=== PATIENT | female | born 1930 | race Caucasian/White ===

== ENCOUNTER 2016-07-10 07:57 | Inpatient (IN) | payer MEDICARE, BC ==
--- NOTE | 2016-07-04 16:24 | HP ---
HISTORY AND PHYSICAL: DATE OF ADMISSION: 07/10/16 PROVIDER: Dr. Bartlett. CHIEF COMPLAINT: Preop for right hip revision. HISTORY OF PRESENT ILLNESS: Ms. Lee is an 86-year-old female who has had right hip pain that has been occurring since last visit. The patient had a periprosthetic femur fracture that was treated with an ORIF and cemented femoral component. She has been having pain in her thigh and lateral hip since that time. It was initially thought that the stem may be starting to loosen. The patient has been participating in physical therapy since April and feels that she has improved with lateral hip pain, but has is continuing to have pain in her thigh and is not able to take more than 2 steps without her cane. The patient is now seeking surgical intervention and she would like to proceed with a revision surgery. PAST MEDICAL HISTORY: The patient's known past medical history: Chronic diagnosis of osteoporosis, chronic lymphoid leukemia, benign essential hypertension. The patient also had a cystocele which has been treated with a pessary. Hospitalizations: Colitis, August 2014. The patient was hospitalized for C. diff and a right-sided DVT. PAST SURGICAL HISTORY: 1. Hip replacement in 2014, right hip x2. 2. Cataract surgery, undefined date. 3. Tonsils at age 11. MEDICATIONS: 1. Tylenol with Codeine No. 3 300/30 mg p.r.n. 2. Tramadol 50 mg p.r.n. 3. Voltaren 1% 2 g b.i.d. p.r.n. 4. Hydrochlorothiazide 25 mg 1 p.o. daily. 5. Fish oil 1000 mg 2 by mouth every day. 6. Centravites 1 p.o. daily. 7. Calcium 600 plus D3 one daily. 8. Biotin 5000 mcg. ALLERGIES: PENICILLIN, LATEX, and then OXYCODONE - the patient was in a state of acute delirium during last hospitalization while given OXYCODONE. FAMILY HISTORY: Father due to stroke. Mother due to cirrhosis. Two older brothers, both , due to lung cancer. Sister is still alive, healthy. SOCIAL HISTORY: The patient lives with spouse, 61 years. 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 The patient is a former smoker, quit 40 years ago, one-half pack per day x20 years. The patient consumes alcohol rarely, states 1 glass of wine every 3 weeks. The patient denies any illicit drug use. REVIEW OF SYSTEMS: General: Denies fevers, chills, or night sweats. No known anesthesia problems. HEENT: Denies headache, lightheadedness, or syncopal episode. Cardiothoracic: Denies any chest pain, heart palpitations, or edema. Pulmonary: Denies any shortness of breath with exertion, chronic cough, or COPD. GI: Admits to constipation. Denies any nausea, vomiting, or diarrhea. : Denies any nocturia, urinary frequency, or urgency. MSK: Admits to pain in the quadriceps tendon area. Admits to tightness along the IT band, admits to mild amount of pain in the right side. Neuro: Denies any paresthesias, numbness, seizures, stroke, or epilepsy. Integument: Denies any abrasions, lesions, or rashes. Endocrine: Denies any diabetes or thyroid issues. Hematology: Denies any easy bruising, anemia, or excessive bleeding. Admits to history of DVT. PHYSICAL EXAMINATION GENERAL: The patient is awake, alert, and oriented, 86-year-old female who is in no acute distress. She has appropriate mood and affect. HEENT: Normocephalic, atraumatic. Hearing and vision are grossly intact. PULMONARY: Lungs are clear to auscultation bilaterally with no wheezes, rales, or rhonchi. CARDIO: Regular rate and rhythm. S1 and S2 with no appreciable S3 or S4. No murmurs, rubs, or gallops appreciated. ABDOMEN: Soft and nontender with normal bowel sounds in all 4 quadrants. MUSCULOSKELETAL: Gait: The patient's gait is antalgic favoring the right lower extremity. She ambulates with a cane. Right lower extremity: The patient's skin is intact. Some slight tenderness to palpation along the IT band laterally. Slight tenderness to palpation on the quadriceps tendon. Slight pain to palpation on the right hip joint. The patient has active hip flexion to 90 degrees with some lateral thigh pain. Active hip abduction. The patient is neurovascularly intact distally with 2+ dorsalis pedis pulses and posterior tibial pulses. IMPRESSION: Preop for right hip revision of the femoral stem. PLAN: The patient will undergo a revision of a right total hip arthroplasty. The patient will return 10 to 14 days postop for suture removal and followup and x- rays. A prescription for Percocet 5/325 has been sent to the pharmacy of record to be used for postoperative pain management. Scripts for Coumadin 2 mg for postop DVT prophylaxis and Colace to be used as needed for constipation were also e- scripted to the pharmacy of record. The risks and benefits of surgery were discussed with the patient and signed consent was obtained. We are unclear on whether we will be placing a distal fixation long cemented stem. Bone quality will have to be evaluated operatively as well as see how much cement is able to be removed from the femoral canal. The patient will be seen on 07/10/16 for a right total hip arthroplasty revision. GRZEGORZ WOODS [id number]/CPS #: [id number] MTDD
[~2016-07-10 07:57] MED LIST: Buffered Lidocaine 1% SYR 3ML* 3 ML/SYR SYRINGE INTRADERM ONE; Dexamethasone IV* 4 MG/ML 1 ML (4 MG) IV SLOW PU ONE; Famotidine IV* 10 MG/ML 2 ML (20 mg) IV ONE
[2016-07-10] MEDS ORDERED: Buffered Lidocaine 1% SYR 3ML* 3 ML/SYR SYRINGE ONE (08:17)
[2016-07-10] MEDS ORDERED: Famotidine IV* 10 MG/ML 2 ML (20 mg) ONE (08:17)
[2016-07-10] MEDS ORDERED: Dexamethasone IV* 4 MG/ML 1 ML (4 MG) ONE (08:17)
[2016-07-10] MEDS ORDERED: Clindamycin 900 MG IVPREMIX(* 900 MG/50 ML SDV IV ONE (08:17)
[2016-07-10] MEDS ORDERED: Ondansetron INJ* 2 MG/ML VIAL ONE (09:08)
[2016-07-10] MEDS ORDERED: Propofol* 10 MG/ML 20 ML BTL IV PUSH ONE ×2 (09:08→14:24)
[2016-07-10] MEDS ORDERED: Bupivacaine 0.5% SDV PF* 30 ML VIAL ONE (09:10)
[2016-07-10] MEDS ORDERED: Midazolam* 1 MG/ML 5 ML VIAL (5 MG) ONE (10:38)
[2016-07-10] MEDS ORDERED: KETAMINE HCL* 50 MG/ML 10 ML VIAL ONE (10:39)
[2016-07-10] MEDS ORDERED: Morphine PF AMP (0.5MG/ML)* 5 MG/10 ML AMP ONE (10:39)
[2016-07-10] MEDS ORDERED: Midazolam* 1 MG/ML 2 ML VIAL (2 MG) ONE ×2 (12:15→15:21)
[2016-07-10] MEDS ORDERED: Nalbuphine* 20 MG/ML 1 ML VIAL IV PRN ×2 (12:23)
[2016-07-10] MEDS ORDERED: fentaNYL* 50 MCG/ML 2 ML VIAL (100 MCG VIAL) IV PRN (12:23)
[2016-07-10] MEDS ORDERED: Naloxone* 0.4 MG/ML 1 ML VIAL IV PRN (12:23)
[2016-07-10] MEDS ORDERED: Ondansetron INJ* 2 MG/ML VIAL IV PRN (12:29)
[2016-07-10] MEDS ORDERED: oxyCODONE/Acetamin 5/325 MG* TAB PO PRN (12:29)
[2016-07-10] MEDS ORDERED: Atropine 1MG/ML INJ* 1 ML VIAL ONE (12:58)
[2016-07-10] MEDS ORDERED: Ropivacaine* 300 MG in NS 0.9% 250 ML* 240 ML EPIDURAL SCH (13:00)
[2016-07-10] MEDS ORDERED: Nalbuphine* 20 MG/ML 1 ML VIAL ONE (14:30)
[2016-07-10] MEDS ORDERED: Lidocaine 2% EPI 1:200000 MPF* 20 ML VIAL ONE (14:44)
[2016-07-10] MEDS ORDERED: Sodium Bicarbonate 8.4% SYR* 10 ML SYRINGE ONE (14:44)
[2016-07-10] MEDS ORDERED: Acetaminophen TAB* 325 MG PO PRN (16:24)
[2016-07-10] MEDS ORDERED: Bisacodyl SUPP* 10 MG SUPP PR PRN (16:24)
[2016-07-10] MEDS ORDERED: Polyethylene Glycol 3350* 17 GM PACKET PO PRN (16:24)
[2016-07-10] MEDS ORDERED: Magnesium Hydroxide LIQ* 30 ML UDC PO PRN (16:24)
--- NOTE | 2016-07-10 18:02 | RAD ---
INDICATION: Total right hip replacement revision surgery. COMPARISON: Comparison is made with a prior x-ray study of the right hip from April 23, 2016. TECHNIQUE: An AP view of the pelvis and frontal and lateral views of the right hip were obtained. FINDINGS: The patient is status post total right hip arthroplasty with a long stem prostheses within the femur. The bones and prostheses are in normal alignment. In addition there is a metallic plate present along the lateral aspect of the femur. There are multiple wire sutures present. There are multiple surgical trang present laterally. IMPRESSION: STATUS POST TOTAL RIGHT HIP ARTHROPLASTY REVISION.
--- NOTE | 2016-07-10 18:05 | RAD ---
INDICATION: Total right hip revision arthroplasty. TECHNIQUE: 2 views of the right femur were obtained. FINDINGS: The patient is status post post total right hip revision arthroplasty. The bones and prostheses are in normal alignment. There is a longstem prostheses within the femur. In addition there is an oblique fracture of the distal femur. There is a metallic plate present along the lateral aspect of the femur transfixed with multiple screws and wire suture spanning the fracture fragments. IMPRESSION: STATUS POST TOTAL RIGHT HIP REVISION ARTHROPLASTY AND FRACTURE REDUCTION.
[2016-07-10] MEDS: Docusate CAP* 100 MG PO SCH (19:51)
[2016-07-10] MEDS ORDERED: Warfarin TAB(*) 6 MG PO ONE (20:00)
[2016-07-10] MEDS: Clindamycin 600 MG IVPREMIX(* 600 MG/50 ML SDV IV SCH (20:16)
--- NOTE | 2016-07-10 21:49 | CONS ---
MEDICAL CONSULTATION: DATE OF CONSULT: 07/10/16 PRIMARY CARE PROVIDER: Dr. Cindy Matamoros. CONSULTING PROVIDER: GRZEGORZ Bell. SUPERVISING PHYSICIAN: Bertha Souza DO (DICTATED BY GRZEGORZ BELL) REQUESTING PROVIDER: Alka Bartlett MD. CHIEF COMPLAINT: Status post revision of right total hip. HISTORY OF PRESENT ILLNESS: This is an 86-year-old female with a history of CLL followed by Dr. Howard, felt to currently be in remission as well as hypertension with a history of a prior DVT, history of C. Diff colitis and a cystocele who underwent revision of her right total hip by Dr. Bartlett earlier today. Hospitalist group was asked to consult for medical comanagement during her hospital stay. The patient states that she is doing fairly well postoperatively. It appears that she had spinal anesthesia. She is complaining of some dizziness, but otherwise is feeling well. She feels no pain. Denies chest pain, shortness of breath, nausea, vomiting or abdominal pain. In regards to the patient's history of DVT, she states that this occurred during a hospital admission for C. Diff colitis, which occurred a couple of weeks after a surgery, she is unsure of which surgery this was, perhaps her left hip. She has no known family history of clotting disorder. PAST MEDICAL HISTORY: 1. History of CLL, currently in remission, followed by Dr. Howard. 2. Hypertension. 3. History of DVT following surgery and during subsequent hospital admission. 4. History of C. Diff colitis. 5. Cystocele. PAST SURGICAL HISTORY: 1. Right total hip replacement. 2. Cataract surgery. 3. Tonsillectomy. HOME MEDICATIONS: 1. 1 tablet p.o. twice daily. 2. Biotin 5000 mcg p.o. daily. 3. Estradiol vaginal cream 1 application vaginally twice weekly. 4. Hydrochlorothiazide 25 mg p.o. daily. 5. Multivitamin 1 tablet p.o. daily. 6. Naproxen 220 mg p.o. daily. 7. [place]-3 fatty acids 325 mg capsule p.o. daily. 8. Florastor or saccharomyces 250 mg p.o. daily. SOCIAL HISTORY: The patient lives with her to whom she has been for 60 years. She quit smoking about 40 years ago. Denies any regular alcohol consumption. PHYSICAL EXAM: Recent vital signs: Temperature 96.8 degrees Fahrenheit, pulse 78 beats per minute, respiratory rate 16 per minute, oxygen saturation 99% on 4 L via nasal cannula and a blood pressure of 119/70 mmHg. General: This is a very pleasant elderly female who appears younger than her stated age, lying comfortably in a hospital bed in the recovery area. HEENT: Head is normocephalic, atraumatic. Mucous membranes are pink and mildly dry. Cardiovascular: Heart has a regular rate and rhythm without murmurs, rubs, or gallops. Respiratory: Lungs are clear to auscultation without wheezes, crackles or rhonchi. Abdomen: Soft and nontender to palpation. Extremities: Right hip has a postsurgical bandage in place. No lower extremity edema appreciated. Skin: Limited exam shows no concerning rashes or lesions. Psych : The patient is alert and appropriately oriented. DIAGNOSTIC STUDIES/LAB DATA: Reviewed preop labs from 07/05/16, which showed a white blood cell count of 19,600, which seems to be near her baseline. Hemoglobin was normal at 12.3 g/dL and a normal platelet count of 218,000. Comprehensive metabolic panel was unremarkable. Creatinine was notably normal at 0.86 with an estimated GFR of 62.7. Imaging: None. ASSESSMENT AND PLAN: This is an 86-year-old female with history of chronic lymphocytic leukemia followed by Dr. Howard as well as hypertension, history of prior deep venous thrombosis, sounds like surrounding prior hospital admission and surgery as well as history of Clostridium difficile colitis and a cystocele , who is now status post revision of her right total hip by Dr. Bartlett earlier today. Hospitalist group is consulted for medical comanagement. 1. Status post revision of right total hip by Dr. Bartlett. The patient is postop day 0. Surgical management including DVT prophylaxis, pain management and discharge planning per Surgery. 2. Hypertension - hold hydrochlorothiazide until blood pressure requires resuming. 3. History of chronic lymphocytic leukemia - noted leukocytosis preoperatively. We will not plan to follow her white blood cell count during her hospital admission. 4. History of deep venous thrombosis surrounding prior surgery and hospital admission. The patient has been ordered Lovenox and Coumadin per Orthopedic Surgery group for prophylaxis. 5. Cystocele with pessary in place. 6. Code status - the patient is full code. 7. DVT prophylaxis as noted above. 8. Healthcare proxy is her . DISPOSITION: Hospitalist group will continue to follow along during this patient's postoperative course. No acute medical concerns at this time. Discharge planning per Orthopedic Surgery. GRZEGORZ BELL CC: Dr. Cindy Matamoros* [id number]/CPS #: [id number] ALFREDITO
[2016-07-11] MEDS: Clindamycin 600 MG IVPREMIX(* 600 MG/50 ML SDV IV SCH ×2 (03:51→12:15)
[2016-07-11] MEDS: HYDROcodone/ACETAMIN 5-325 MG* 1 TAB PO PRN ×5 (04:12→21:06)
[2016-07-11] MEDS ORDERED: Lactated Ringers 250 ml Bag* 250 ML IV ONE (06:00)
[2016-07-11] MEDS ORDERED: diPHENhydraMINE IV* 50 MG/ML 1 ml VIAL (BENADRYL) IV PRN (06:00)
[2016-07-11] MEDS ORDERED: Ondansetron TAB* 4 MG PO PRN (06:00)
[2016-07-11] MEDS ORDERED: Ondansetron INJ* 2 MG/ML VIAL IV PRN (06:00)
[2016-07-11] MEDS ORDERED: Morphine INJ* 2 MG/ML 1 ML CARPUJECT IV PRN (06:00)
[2016-07-11 06:50] LABS: Hematocrit 21 % (35-47); Hemoglobin 6.8 g/dl (12.0-16.0)
[2016-07-11 06:59] LABS: BUN/Creatinine Ratio 28.6 (8-20); Calcium 8.2 mg/dL (8.6-10.3); EGFR African American 115.5 (>60); EGFR Non-African American 89.8 (>60); Potassium 4.4 mmol/L (3.5-5.0)
[2016-07-11 07:08] LABS: Comments Flag Yes
--- NOTE | 2016-07-11 07:45 | PN ---
Progress Note - Progress Note SOAP: Subjective: Pt. reports pain is controlled. Objective: RLE - dressing c/d/i, thigh soft, distally +df/pf, full sens lt, 2+ dp pulse. Vital Signs: Temp Pulse Resp BP Pulse Ox 99.5 F 60 16 105/46 100 07/11/16 03:40 07/11/16 03:40 07/11/16 06:12 07/11/16 03:40 07/11/16 03:40 Laboratory Results - last 24 hr 07/11/16 07/11/16 07/11/16 06:12 06:12 06:12 Hgb 6.8 L Hct 21 L INR (Anticoag Therapy) 1.24 H Sodium 133 Potassium 4.4 Chloride 101 Carbon Dioxide 30 Anion Gap 2 BUN 18 Creatinine 0.63 Est GFR ( Amer) 115.5 Est GFR (Non-Af Amer) 89.8 BUN/Creatinine Ratio 28.6 H Glucose 122 H Calcium 8.2 L Blood Type Crossmatch 07/11/16 06:12 Hgb Hct INR (Anticoag Therapy) Sodium Potassium Chloride Carbon Dioxide Anion Gap BUN Creatinine Est GFR ( Amer) Est GFR (Non-Af Amer) BUN/Creatinine Ratio Glucose Calcium Blood Type A Negative Crossmatch See Detail Assessment: 86 yo F pod 1 s/p revision RTHA with intraop femur fracture s/p orif Plan: ttwb rle pt/ot knee immobilizer to RLE at all times 2 u prbc today for acute postop blood loss anemia 6 mg coumadin tonight
[2016-07-11] MEDS: Docusate CAP* 100 MG PO SCH ×2 (08:19→21:06)
[2016-07-11] MEDS: Vitamin THERAPEUTIC TAB PO SCH (08:19)
[2016-07-11] MEDS ORDERED: Hydrochlorothiazide TAB* 25 MG PO SCH (09:00)
--- NOTE | 2016-07-11 11:26 | RAD ---
INDICATION: Right total hip revision arthroplasty. COMPARISON: Comparison is made with a prior x-ray study of the right hip from April 23, 2016. TECHNIQUE: 38.1 seconds of intermitted fluoroscopic were provided and multiple views of the right hip and femur were obtained in the operating room. FINDINGS: The films demonstrate the distal portion of a long stem prostheses. There is a fracture of the distal femoral diaphysis and metaphysis. There is a metallic plate present along the lateral aspect of the femur with multiple wire sutures present and 2 surgical screws distally transversing the fracture fragments. IMPRESSION: INTRAOPERATIVE CONTROL FILMS. CPT II Codes: 6045F
[2016-07-11] MEDS ORDERED: Enoxaparin(*) 30 MG/0.3 ML SYR SUBCUT SCH (12:00)
--- NOTE | 2016-07-11 13:42 | OP ---
DATE OF OPERATION: 07/10/16 - ROOM #348 DATE OF : 32 SURGEON: Alka Bartlett MD ASSISTANT QUALITY MANAGER: GRZEGORZ Mendez ANESTHESIOLOGIST: Dr. Patel. ANESTHESIA: Spinal epidural. PRE-OP DIAGNOSIS: Painful failed right total hip arthroplasty due to periprosthetic loosening of the femoral stem with periprosthetic fracture. POST-OP DIAGNOSIS: Painful failed right total hip arthroplasty due to periprosthetic loosening of the femoral stem with periprosthetic fracture. OPERATIVE PROCEDURE: Revision right total hip arthroplasty with revision of the femoral component, open reduction and internal fixation with plate and screws for intraoperative distal femoral fracture. INDICATIONS: Ms. Lee is an 86-year-old female, who has chronic history of right hip pain and multiple surgeries on her right hip as well as multiple periprosthetic fractures. The patient initially underwent right total hip arthroplasty with Dr. Felton over 1 year ago. She developed a periprosthetic fracture which was treated with revision of the femoral stem to a cemented stem with cerclage cables. The patient also reports she had a distal femoral fracture from a fall over the last 2 years. The patient presented to my clinic with obvious radiographic evidence of periprosthetic loosening of the femoral stem and microfracture or stress reaction around the stem tip. I offered her revision surgery. She understood that due to her age and bone quality, the risk of intraoperative fracture was high. Informed consent was obtained from the patient. She understood the risks of the surgery included but were not limited to bleeding, infection, damage to nearby structures, continued pain, need for further surgery, intraoperative fracture, nerve palsy, hardware failure or loosening, dislocation , leg length discrepancy, stroke, heart attack, blood clot, and . She wished to proceed. EBL: 400 cc. SPECIMEN: Multiple cultures sent to Pathology for culture and sensitivities of the right hip joint fluid. There is no obvious infection or purulence. HARDWARE USED: This is a Remigio uncemented revision hip hardware. Methodist modular was used. A 195, 16-mm distal pentecostalism stem with a proximal body of 19 +0, a 32, -4 Biolox delta ceramic V40 femoral head was used. A Remigio lateral femoral plate was used as well as 7 Dall-Miles cables and 2 cortical screws distally. INTRAOPERATIVE FINDINGS: Intraoperatively, the patient's femoral stem was noted to be grossly loose. The acetabulum and polyethylene were without any loosening or abnormality. Femoral stem was removed easily. A large amount of cement and the distal cement bone plug were difficult to remove. Intraoperative radiographs showed an area of bone weakness just distal to the prior femoral stem, which was likely from her prior periprosthetic fracture. During placement of the long uncemented stem for the pentecostalism modular implant , a distal femoral fracture was discovered. This was treated with a lateral sideplate, multiple Dall-Miles cables, and two distal screws. Throughout the procedure, the patient's bone quality was noted to be quite poor. DESCRIPTION OF PROCEDURE: Ms. Lee was identified in the preanesthesia unit. Her right lower extremity was marked as the correct operative side. Informed consent was signed and placed in the chart. The patient was taken to the operating room and placed under spinal epidural anesthesia. A Fung catheter was placed. She was placed in the left lateral decubitus position on the pegboard with all bony prominences well-padded. Right lower extremity was prepped and draped in the usual sterile fashion. Preop time-out was made to correctly identify the patient's side and site. Right lower extremity was prepped and draped in the usual sterile fashion. The patient's prior hip incision was used. This was incised with a 10 blade and electrocautery was used to dissect down to the lateral fascial layer. Lateral fascial layer was then incised. There was a large amount of scar tissue and this was cleared anteriorly and posteriorly. A single posterior capsular flap was then made with electrocautery to enter the posterior hip joint. There was some clear yellow joint fluid, which was collected for culture and sensitivities. No obvious purulence. The hip was easily dislocated. Femoral stem was clearly visibly loose. A bur was used to remove bony overgrowth along the shoulder near the greater trochanter. [place] and thin osteotome were used to work around the stem. A back-slap was used to remove the femoral stem without difficulty. Extreme caution and care was taken to remove cement from the femoral canal. A mill was used to remove the distal bone plug. Once the canal was cleaned of cement and fibrous debris, attention was turned to place in a long stem uncemented revision femoral stem. The canal was sequentially reamed by hand up to a size 16. AP and lateral C-arm views confirmed satisfactory position of the stem. The prior proximal femoral periprosthetic fracture was visible on plain films. The stem did bypass this area by two stem diameters. Methodist modular 195 x 16 mm was chosen as the distal stem. This was impacted into the femoral canal without difficulty. Next proximally, the reamer guide was placed. Size 19 reamer was placed over the guide proximally. A 19 trial body +0 height was chosen as well as a 32 -4 femoral head trial. The hip was reduced and taken through range of motion. Soft tissue tension was satisfactory. The hip was carefully dislocated at this point. There was no palpable or audible fracture; however, it was immediately recognized that there was likely a distal femoral fracture. AP and lateral C-arm views confirmed a distal femoral fracture distal to the stem tip. At this point, the lateral incision was continued distally with skin knife and electrocautery. The lateral fascial layer was incised in line with the skin incision. Careful electrocautery and dissection with a Bautista elevator on to the lateral femur was performed. The fracture lines were identified. Lobster claws were used to obtain a provisional reduction of the fracture. A lateral femoral plate was chosen and this was secured both proximally and distally with 3 Dall- Miles cables. At this point, the fracture reduction was stable. The reduction forceps were removed. AP and lateral C-arm views confirmed satisfactory reduction. Two screws were placed distal to the fracture site through the plate. An additional cable was placed proximally. The construct was stable with motion. Attention was turned next to the proximal femur. A 19 +0 pentecostalism modular body was chosen. This was impacted on to the stem and tightened with a bolt. Proper torque was applied. The proper anteversion was chosen. 32, -4 Biolox delta ceramic V40 head was used as the final implant and was impacted on to the femoral neck without difficulty. The hip was reduced and taken through a range of motion. The hip was stable in all positions. The entire incision was copiously irrigated with sterile saline and dried. Previously tagged capsule was reapproximated to the posterolateral femur through two trochanteric drill holes. The vastus lateralis was reapproximated using running #1 Vicryl. The lateral fascial layer was reapproximated using interrupted #1 Vicryls. Skin was closed in a layered fashion using 0 and 2-0 Vicryls. Skin was closed with trang. The patient's anesthesia was reversed without difficulty. She was taken to the PACU in stable condition. Intended weightbearing will be toe-touch weightbearing. Intended DVT prophylaxis will be Coumadin with a Lovenox bridge. [id number]/[facility] #: [id number] MTDD
[2016-07-11] MEDS ORDERED: Warfarin TAB(*) 6 MG PO SCH (17:00)
--- NOTE | 2016-07-11 17:31 | PN ---
Subjective Date of Service: 07/11/16 Interval History: Patient reports that she is mildly dizzy but offers no other acute complaints. She denies CP, abdominal pain, dyspnea, n/v. Urine output was noted to be poor overnight, patient did receive 250ml bolus and maintained on fluids at 100ml/h. Objective Active Medications: Acetaminophen (Tylenol Tab*) 650 mg PO Q4H PRN PRN Reason: PAIN OR TEMPERATURE Acetaminophen/Hydrocodone Bitart ([place] 5-325 Tab*) 1 tab PO Q3H PRN PRN Reason: PAIN - MODERATE Acetaminophen/Hydrocodone Bitart ([place] 5-325 Tab*) 2 tab PO Q3H PRN PRN Reason: PAIN - MODERATE Last Admin: 07/11/16 13:07 Dose: 2 tab Bisacodyl (Dulcolax Supp*) 10 mg LA DAILY PRN PRN Reason: constipation Diphenhydramine HCl (Benadryl Iv*) 12.5 mg IV Q6H PRN PRN Reason: PRURITIS Docusate Sodium (Colace Cap*) 100 mg PO BID [facility] Last Admin: 07/11/16 08:19 Dose: 100 mg Enoxaparin Sodium (Lovenox(*)) 30 mg SUBCUT Q24H [facility] Last Admin: 07/11/16 12:25 Dose: 30 mg Lactated Ringer's (Lactated Ringers 1000 Ml Bag*) 1,000 mls @ 150 mls/hr IV PER RATE [facility] Lactated Ringer's (Lactated Ringers 500 Ml Bag*) 500 mls @ 500 mls/hr IV ONCE ONE Stop: 07/11/16 17:27 Last Admin: 07/11/16 16:33 Dose: 500 mls/hr Lactulose (Lactulose*) 30 ml PO Q6H PRN PRN Reason: constipation Magnesium Hydroxide (Milk Of Magnesia Liq*) 30 ml PO Q6H PRN PRN Reason: constipation Morphine Sulfate (Morphine Inj (Syringe)*) 2 mg IV Q2H PRN PRN Reason: PAIN Last Admin: 07/11/16 16:18 Dose: 2 mg Multivitamins (Theragran Tab*) 1 tab PO DAILY [facility] Last Admin: 07/11/16 08:19 Dose: 1 tab Ondansetron HCl (Zofran Inj*) 4 mg IV Q6H PRN PRN Reason: nausea Ondansetron HCl (Zofran Tab*) 4 mg PO Q6H PRN PRN Reason: NAUSEA Pharmacy Profile Note (Coumadin Daily Reminder*) 1 note FOLLOW UP 1700 KEN Last Admin: 07/11/16 16:24 Dose: 1 note Polyethylene Glycol/Electrolytes (Miralax*) 17 gm PO DAILY PRN PRN Reason: Constipation Vital Signs: Temp Pulse Resp BP Pulse Ox 98.0 F 70 16 116/49 97 07/11/16 15:45 07/11/16 15:45 07/11/16 16:18 07/11/16 15:45 07/11/16 16:00 Oxygen Devices in Use Now: None Appearance: Well appearing, in NAD, eating lunch Neck: NL Appearance and Movements; NL JVP Respiratory: Symmetrical Chest Expansion and Respiratory Effort Cardiovascular: NL Sounds; No Murmurs; No JVD, RRR Abdominal: NL Sounds; No Tenderness; No Distention Extremities: No Edema, - - post tib pulses intact Skin: No Rash or Ulcers Neurological: Alert and Oriented x 3 Result Diagrams: 07/11/16 06:12 07/11/16 06:12 Microbiology and Other Data: Microbiology 07/10/16 11:57 Gram Stain - Final Hip Right Wound Culture - Preliminary No Growth Day 1 07/10/16 11:57 Anaerobic Culture - Preliminary Wound - Hip Right No Growth Day 1 Assess/Plan/Problems-Billing Assessment: This is an 86 yo female with a h/o HTN, CLL, prior DVT and cystocele who is s/p revision R total hip revision which is unfortunately complicated by an intraoperative fracture. Hospitalist group has been asked to consult for medical co-management. - Patient Problems (1) Status post revision of total hip Comment: POD #1 Management per ortho including pain control, DVT prophylaxis and discharge planning (2) Postoperative anemia Comment: Hgb 6.8 g/dl this am Transfused 2U PRBCs Only mildly symptomatic (3) Low urine output Comment: Urine output continues to be poor even following blood transfusion Nurses record ~150ml in the last 8 hours Will give an additional 500 ml bolus and continue maintainence fluids Maintain Ufng in place for close monitoring of output overnight (4) Hypertension Comment: Holding antihypertensives in the setting of hypotension and acute blood loss anemia (5) History of DVT (deep vein thrombosis) Comment: Following prior surg (6) Personal history of CLL (chronic lymphocytic leukemia) Comment: In remission Followed by Dr Howard (7) History of Clostridium difficile colitis Status and Disposition: Discharge planning per ortho
[2016-07-11 18:51] LABS: Hematocrit 26 % (35-47); Hemoglobin 8.6 g/dl (12.0-16.0)
[2016-07-12] MEDS: HYDROcodone/ACETAMIN 5-325 MG* 1 TAB PO PRN ×4 (03:42→22:36)
[2016-07-12 07:32] LABS: Hematocrit 25 % (35-47); Hemoglobin 8.3 g/dl (12.0-16.0)
--- NOTE | 2016-07-12 07:53 | PN ---
Progress Note - Progress Note SOAP: Subjective: []Patient seen at bedside. Pain well managed. Denies shortness of breath, or dizziness today. Objective: [] Vital Signs Temp 98.2 F 07/12/16 07:25 Pulse 70 07/12/16 07:25 Resp 16 07/12/16 07:25 BP 111/49 07/12/16 07:25 Pulse Ox 91 07/12/16 07:25 Intake & Output 07/11/16 07/12/16 07/12/16 18:59 06:59 18:59 Intake Total 1825 3580 Output Total 150 1700 Balance 1675 1880 Intake: IV Fluids 780 2480 ABX - CLINDAMYCIN 55 LR 529 1980 NS 196 lr bolus 500 Oral 480 1100 Packed Cells 565 Output: Fung 150 1700 Vital Signs Temp 98.2 F 07/12/16 07:25 Pulse 70 07/12/16 07:25 Resp 16 07/12/16 07:25 BP 111/49 07/12/16 07:25 Pulse Ox 91 07/12/16 07:25 Intake & Output 07/11/16 07/12/16 07/12/16 18:59 06:59 18:59 Intake Total 1825 3580 Output Total 150 1700 Balance 1675 1880 Intake: IV Fluids 780 2480 ABX - CLINDAMYCIN 55 LR 529 1980 NS 196 lr bolus 500 Oral 480 1100 Packed Cells 565 Output: Fung 150 1700 Laboratory Results - last 24 hr 07/11/16 07/11/16 07/12/16 06:12 18:15 06:32 Hgb 8.6 L 8.3 L Hct 26 L 25 L INR (Anticoag Therapy) Blood Type A Negative Antibody Screen Negative Crossmatch See Detail 07/12/16 06:32 Hgb Hct INR (Anticoag Therapy) 3.59 H Blood Type Antibody Screen Crossmatch Right hip/thigh dressing remains C/D/I Calf non tender Ronald's negative Active DF/PF Neuro intact Assessment: []s/p Revison RTH with intra operative distal femur fracture, s/p ORIF POD#2 Post operative anemia Plan: []Patient with continue with PT/OT TTWB Knee immobilizer on at all times Hold Coumadin today
[2016-07-12] MEDS: Vitamin THERAPEUTIC TAB PO SCH (08:59)
[2016-07-12] MEDS: Docusate CAP* 100 MG PO SCH ×2 (08:59→22:37)
--- NOTE | 2016-07-12 16:59 | PN ---
Subjective Date of Service: 07/12/16 Interval History: Patient offers no acute complaints, dizziness has improved. Her urine output improved and Fung catheter was removed this am. Objective Active Medications: Acetaminophen (Tylenol Tab*) 650 mg PO Q4H PRN PRN Reason: PAIN OR TEMPERATURE Acetaminophen/Hydrocodone Bitart ([place] 5-325 Tab*) 1 tab PO Q3H PRN PRN Reason: PAIN - MODERATE Last Admin: 07/12/16 13:00 Dose: 1 tab Acetaminophen/Hydrocodone Bitart ([place] 5-325 Tab*) 2 tab PO Q3H PRN PRN Reason: PAIN - MODERATE Last Admin: 07/12/16 08:59 Dose: 2 tab Bisacodyl (Dulcolax Supp*) [address] DAILY PRN PRN Reason: constipation Diphenhydramine HCl (Benadryl Iv*) 12.5 mg IV Q6H PRN PRN Reason: PRURITIS Docusate Sodium (Colace Cap*) 100 mg PO BID [facility] Last Admin: 07/12/16 08:59 Dose: 100 mg Lactated Ringer's (Lactated Ringers 1000 Ml Bag*) 1,000 mls @ 150 mls/hr IV PER RATE [facility] Last Admin: 07/12/16 05:56 Dose: 150 mls/hr Lactulose (Lactulose*) 30 ml PO Q6H PRN PRN Reason: constipation Magnesium Hydroxide (Milk Of Magnesia Liq*) 30 ml PO Q6H PRN PRN Reason: constipation Morphine Sulfate (Morphine Inj (Syringe)*) 2 mg IV Q2H PRN PRN Reason: PAIN Last Admin: 07/11/16 16:18 Dose: 2 mg Multivitamins (Theragran Tab*) 1 tab PO DAILY [facility] Last Admin: 07/12/16 08:59 Dose: 1 tab Ondansetron HCl (Zofran Inj*) 4 mg IV Q6H PRN PRN Reason: nausea Last Admin: 07/12/16 13:23 Dose: 4 mg Ondansetron HCl (Zofran Tab*) 4 mg PO Q6H PRN PRN Reason: NAUSEA Pharmacy Profile Note (Coumadin Daily Reminder*) 1 note FOLLOW UP 1700 [facility] Last Admin: 07/12/16 15:51 Dose: Not Given Polyethylene Glycol/Electrolytes (Miralax*) 17 gm PO DAILY PRN PRN Reason: Constipation Vital Signs: Temp Pulse Resp BP Pulse Ox 98.5 F 71 16 105/60 94 07/12/16 15:14 07/12/16 15:14 07/12/16 15:14 07/12/16 15:14 07/12/16 16:00 Oxygen Devices in Use Now: None Appearance: Well appearing in NAD Ears/Nose/Mouth/Throat: Mucous Membranes Moist Respiratory: Symmetrical Chest Expansion and Respiratory Effort, Clear to Auscultation Cardiovascular: NL Sounds; No Murmurs; No JVD, RRR Abdominal: NL Sounds; No Tenderness; No Distention Extremities: No Edema Skin: No Rash or Ulcers Neurological: Alert and Oriented x 3 Result Diagrams: 07/12/16 06:32 07/11/16 06:12 Microbiology and Other Data: Microbiology 07/10/16 11:57 Gram Stain - Final Hip Right Wound Culture - Preliminary No Growth Day 1 07/10/16 11:57 Anaerobic Culture - Preliminary Wound - Hip Right No Growth Day 1 Assess/Plan/Problems-Billing Assessment: This is an 86 yo female with a h/o HTN, CLL, prior DVT and cystocele who is s/p revision R total hip revision which is unfortunately complicated by an intraoperative fracture. Hospitalist group has been asked to consult for medical co-management. - Patient Problems (1) Status post revision of total hip Comment: POD #2 Management per ortho including pain control, DVT prophylaxis and discharge planning (2) Postoperative anemia Comment: Transfused 2U PRBCs yesterday, Hgb appears stable (3) Low urine output Comment: Improved (4) Hypertension Comment: Continuing to hold antihypertensives Near normotensive (5) History of DVT (deep vein thrombosis) Comment: Following prior surg (6) Personal history of CLL (chronic lymphocytic leukemia) Comment: In remission Followed by Dr Howard (7) History of Clostridium difficile colitis Status and Disposition: Discharge planning per ortho, but it sounds like patient would benefit from STR due to limited WB status
[2016-07-13] MEDS: HYDROcodone/ACETAMIN 5-325 MG* 1 TAB PO PRN (06:45)
[2016-07-13 07:08] LABS: Hematocrit 26 % (35-47); Hemoglobin 8.7 g/dl (12.0-16.0)
[2016-07-13 08:07] VITALS: BP 122/52
[2016-07-13] MEDS: Docusate CAP* 100 MG PO SCH (09:14)
[2016-07-13] MEDS: Vitamin THERAPEUTIC TAB PO SCH (09:14)
--- NOTE | 2016-07-13 09:36 | PN ---
Progress Note - Progress Note SOAP: Subjective: Pt doing well, no pain at rest. States that leg hurts only with movement, well controlled with medication. Denies CP/SOB Objective: Vitals: Temp Pulse Resp BP Pulse Ox 98.6 F 71 16 122/52 94 07/13/16 07:39 /08/24 07:39 07/13/16 08:45 07/13/16 07:39 07/13/16 07:39 Gen: A&Ox3, NAD sitting in bed Right leg: Dressing C/D/I. Thigh soft, mod ttp. +f/e at ankles and MTPs. N/V intact Labs: Laboratory Results - last 24 hr //17 07/13/16 06:45 06:45 Hgb 8.7 L Hct 26 L INR (Anticoag Therapy) 4.80 H Assessment: POD #3 Right ALY revision with periprosthetic fx Plan: Hold Coumadin as INR 4.8, resume when decreased to therapeutic level. D/C to PMRU today. Pt to f/u with Dr. Bartlett after d/c from [facility]
--- NOTE | 2016-07-13 15:30 | PN ---
Hospitalist Progress Note Patient was discharged by orthopedic service to [facility] today. Patient was not examined by Hospitalist group. Reviewed overnight events, vitals and morning labs. No recommendations to change home medications at discharge. Vital Signs: Temp Pulse Resp BP Pulse Ox 98.6 F 71 16 122/52 94 07/13/16 07:39 07/13/16 07:39 07/13/16 08:45 07/13/16 07:39 07/13/16 07:39 Laboratory Last Values Hgb 8.7 g/dl (12.0-16.0) L 07/13/16 06:45 Hct 26 % (35-47) L 07/13/16 06:45 INR (Anticoag Therapy) 4.80 (0.89-1.11) H 07/13/16 06:45 Sodium 133 mmol/L (133-145) 07/11/16 06:12 Potassium 4.4 mmol/L (3.5-5.0) 07/11/16 06:12 Chloride 101 mmol/L (101-111) 07/11/16 06:12 Carbon Dioxide 30 mmol/L (22-32) 07/11/16 06:12 Anion Gap 2 mmol/L (2-11) 07/11/16 06:12 BUN 18 mg/dL (6-24) 07/11/16 06:12 Creatinine 0.63 mg/dL (0.51-0.95) 07/11/16 06:12 Est GFR ( Amer) 115.5 (>60) 07/11/16 06:12 Est GFR (Non-Af Amer) 89.8 (>60) 07/11/16 06:12 BUN/Creatinine Ratio 28.6 (8-20) H 07/11/16 06:12 Glucose 122 mg/dL (70-100) H 07/11/16 06:12 Calcium 8.2 mg/dL (8.6-10.3) L 07/11/16 06:12 Blood Type A Negative 07/11/16 06:12 Antibody Screen Negative 07/11/16 06:12 Crossmatch See Detail 07/11/16 06:12 Home Medications Medication Instructions Recorded Confirmed Type Areds Preservision 1 tab PO BID 07/05/16 07/13/16 History Biotin 5,000 mcg PO QAM 07/05/16 07/13/16 History Estradiol VAG CM (NF) [Estrace VAG 1 applic VAGINAL SUWE 07/05/16 07/13/16 History CM (NF)] Hydrochlorothiazide TAB* 25 mg PO QAM 07/05/16 07/13/16 History [Hydrodiuril TAB*] Multiple Vitamins W/ Minerals 1 tab PO QAM 07/05/16 07/13/16 History [Centrum] Naproxen Sodium 220 mg PO DAILY PRN 07/05/16 07/10/16 History [place]-3 Fatty Acids [Fish Oil] 500 mg PO QAM 07/05/16 07/13/16 History Saccharomyces Boulardii(NF) 250 mg PO QAM 07/05/16 07/10/16 History [Florastor(NF)]
--- NOTE | 2016-07-14 02:51 | DS ---
DISCHARGE SUMMARY: DATE OF SURGERY: 07/10/16 DATE OF ADMISSION: 07/10/16 DATE OF DISCHARGE: 07/13/16 ADMISSION DIAGNOSES: 1. 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 2. Osteoarthritis. 3. Recent C. diff. 4. Osteoporosis. 5. Chronic lymphoid leukemia. 6. Hypertension. 7. Cystocele. INDICATION FOR SURGERY: Ms. Lee is an 86-year-old female who had periprosthetic femur fracture after total hip arthroplasty. She went on to have 2 revisions of that hip. She also reports that she had a distal femoral fracture in the past. She has known osteoporosis and a history of chronic lymphoid leukemia. The patient was having extreme pain and was unable to ambulate. Her radiograph suggested periprosthetic osteolysis and healing periprosthetic fracture. She elected to have revision surgery, although she understood the risks were high involved with the surgery. HOSPITAL COURSE: Ms. Lee was admitted to [facility] on 07/10/16. She underwent right total hip arthroplasty revision. The femoral stem was revised. Intraoperatively, there was a distal femoral periprosthetic fracture which was treated with a lateral plate, screws, and cables. The patient recovered on the short stay surgical unit. Postop day 1, the patient's hematocrit was 21, and she was given 2 units of packed red blood cells for acute postoperative blood loss anemia. Her hematocrit remained stable afterwards. Her blood pressure remains stable. She was made toe touch weightbearing on the right lower extremity with a knee immobilizer on it all times. She advanced with physical therapy and occupational therapy daily. She was able to urinate on her own. She advanced to a regular diet. Her pain was well controlled. DVT prophylaxis was handled with Coumadin and a Lovenox bridge. By postop day 3, 07/13/16, the patient was orthopedically and medically stable for discharge to the [facility] rehab unit in the hospital. DISCHARGE MEDICATIONS: 1. Hydrochlorothiazide 25 mg p.o. daily. 2. Fish oil 1000 mg p.o. daily. 3. Calcium plus vitamin D 1 tablet p.o. daily. 4. Biotin 5000 mcg p.o. daily. 5. Multivitamin 1 tablet p.o. daily. 6. Percocet 5/325 one to two tablets p.o. q.4 to 6 hours p.r.n. for pain. 7. Colace 100 mg p.o. t.i.d. p.r.n. bowel regimen. 8. Coumadin will be on hold for now with an INR of 4.8 today. PHYSICAL EXAMINATION: On day of discharge, the patient's vitals are 97.7 temperature, pulse is 70, blood pressure 141/62. General: The patient is a well- nourished female in bed. She is alert and oriented x3. Pleasant mood and appropriate affect. Chest: Unlabored breathing. Right lower extremity, the patient has a knee immobilizer on. Her dressing is clean, dry, and intact. Her thigh is swollen, but soft and compressible. Distally, she has dorsiflexion, plantarflexion. Full sensation to light touch in ulnar distributions and 2+ palpable DP pulse. LABORATORY DATA: Laboratory values on date of discharge show INR to be supratherapeutic at 4.8. Hematocrit of 26, platelets of 218. DISCHARGE INSTRUCTIONS: Ms. Lee is an 86-year-old female, postop day 3, status post revision, right total hip arthroplasty. Surgery was complicated with an intraoperative periprosthetic femur fracture. The patient was noted to have osteopenic bone and poor bone quality overall. The patient has been accepted to the PMRU unit. She will be toe touch weightbearing. She will have knee immobilizer on the right lower extremity at all times. She will have regular diet and her home medications. She will have p.r.n. analgesia. She will have Coumadin with a goal INR between 2 and 3. For now, we will hold the Coumadin and recheck INR. She will have physical therapy, occupational therapy. Her sutures will be removed by Dr. Bartlett in 2 weeks' time. Should she have any problems, she will call Dr. Bartlett's office immediately. [id number]/[facility] #: [id number] [facility]
== END 2016-07-13 10:35 | DRG 467 ==
LOC: AA 07:57 → SSU 18:14
PROVIDERS: ADMIT Orthopaedic Surgery Adult Reconstructive Orthopaedic Surgery; ATTEND Orthopaedic Surgery Adult Reconstructive Orthopaedic Surgery
PROC: 0SPR0JZ Removal of Synthetic Substitute from Right Hip Joint, Femoral Surface, Open Approach (ICD-10-PCS; 2016-07-10)
PROC: 0QS604Z Reposition Right Upper Femur with Internal Fixation Device, Open Approach (ICD-10-PCS; 2016-07-10)
PROC: 0SRR01A Replacement of Right Hip Joint, Femoral Surface with Metal Synthetic Substitute, Uncemented, Open Approach (ICD-10-PCS; principal; 2016-07-10 11:00)
PROC: 30233N1 Transfusion of Nonautologous Red Blood Cells into Peripheral Vein, Percutaneous Approach (ICD-10-PCS; 2016-07-11)
DX: T84.030A Mechanical loosening of internal right hip prosthetic joint, initial encounter (principal); C91.11 Chronic lymphocytic leukemia of B-cell type in remission; T84.050A Periprosthetic osteolysis of internal prosthetic right hip joint, initial encounter; I10 Essential (primary) hypertension; D62 Acute posthemorrhagic anemia; M97.01XA Periprosthetic fracture around internal prosthetic right hip joint, initial encounter; M89.551 Osteolysis, right thigh; M81.8 Other osteoporosis without current pathological fracture; N81.10 Cystocele, unspecified; M19.91 Primary osteoarthritis, unspecified site; Z86.718 Personal history of other venous thrombosis and embolism; Z79.1 Long term (current) use of non-steroidal anti-inflammatories (NSAID); Z79.899 Other long term (current) drug therapy; Z88.0 Allergy status to penicillin; Z88.6 Allergy status to analgesic agent; Z91.040 Latex allergy status; Z82.3 Family history of stroke; Z80.1 Family history of malignant neoplasm of trachea, bronchus and lung; Z84.89 Family history of other specified conditions; Z87.891 Personal history of nicotine dependence
CPT/HCPCS: 36415; 62327; 76001; 80048; 85014; 85018; 85610; 86850; 86900; 86901; 86922; 87070; 87073; 87077; 87186; 87205; 88300; 94760; A9270-GY; C1713; C1776; J0461; J1100; J1650; J2250; J2270; J2300; J2405; J2704; J2795; P9040

== ENCOUNTER 2016-07-13 10:12 | Inpatient (IN) | payer MEDICARE, BC ==
[2016-07-13] MEDS ORDERED: Bisacodyl SUPP* 10 MG SUPP PR PRN (11:21)
[2016-07-13] MEDS ORDERED: Al Hydrox/Mg Hydrox/Simet LIQ* 30 ML UDC PO PRN (11:21)
[2016-07-13] MEDS ORDERED: Senna TAB PO PRN (11:21)
[2016-07-13] MEDS ORDERED: Magnesium Hydroxide LIQ* 30 ML UDC PO PRN (11:21)
[2016-07-13] MEDS ORDERED: Polyethylene Glycol 3350* 17 GM PACKET PO PRN (11:32)
[2016-07-13] MEDS ORDERED: Ondansetron ODT TAB* 4 MG PO PRN (11:37)
--- NOTE | 2016-07-13 12:51 | PMRUTEAM ---
PMRU: Goals Current Status: Physical Therapy: Current Status Bed Mobility Assistance Supervision,Min Assist Transfer Moblility Assistance Contact Guard Assist,Min Assist Ambulation Assistance not tested Ambulation Assistive Devices Rolling Walker Stairs Assistance not tested Stairs Recommended Devices Two Rails Number of Stairs 3 OCCUPATION THERAPY: max assist lower body dressing and toileting SOCIAL: Lives with her with 2 JESUS and can stay on 1st floor with accessible bathroom. Goals: PHYSICAL THERAPY GOALS: Modified independent bed mobility, transfers, and MWC. OCCUPATIONAL THERAPY GOALS: Modified independent dressing, bathing, toileting. Care Plan: knee immobilizer at all times. ice prn. TEDS. Educate on hip precautions and TTWB precautions. Medication management. Coumadin monitoring and self-administration. Dietary consultation while on coumadin. Medicine Note: Length of Stay: [1 week] Anticipated Discharge Destination: home Tentative Discharge Date: [07/20/16] Discharged to: [home]
[2016-07-13] MEDS: HYDROcodone/ACETAMIN 5-325 MG* 1 TAB PO PRN ×2 (13:30→21:41)
--- NOTE | 2016-07-13 15:15 | HP ---
REHABILITATION ADMISSION: DATE OF ADMISSION: 07/13/16 PRIMARY CARE PROVIDER: Dr. Cindy Matamoros. ORTHOPEDIC SURGEON: Dr. Bartlett. REASON FOR ADMISSION: Right total hip replacement revision with periprosthetic distal femur fracture. HISTORY OF PRESENT ILLNESS: This is an 86-year-old woman, who was admitted on 07/10/16 for second revision of her right total hip replacement which was originally put in in 2014. In the past, she had sustained a periprosthetic fracture. She came in this time because there was clear loosening of the femoral stem and the plan was to replace this component. She was taken to the OR by Dr. Bartlett on 07/10/16. In placing the new stem, she sustained a distal femur periprosthetic fracture. She has been put on toe-touch weightbearing precautions for the right lower extremity with a knee immobilizer on at all times. On postop day 1, she had acute postoperative anemia with a hemoglobin of 6.8 and hematocrit of 21. She received 2 units of packed red blood cells and her hemoglobin has remained stable in the 8.5 range since. She started Lovenox and Coumadin for DVT prophylaxis. After receiving 2 doses of 6 mg Coumadin on July 10 and July 11, her INR became supratherapeutic. Today, her INR is 4.8, which is still higher than it was yesterday. Coumadin has been on hold and she is off Lovenox at this time. The plan is still for her to be on Coumadin for DVT prophylaxis given her history of prior DVT. Prior to admission, she was independent ambulating with a rolling walker or single-point cane. She is also independent with her ADLs. With physical therapy, she has required a minimum amount of assistance x2 for transferring. With occupational therapy, she has required a maximum amount of assistance for dressing and toileting. She has not been eating very much and has a poor appetite. She has received Zofran for nausea, but has not vomited. She has not had a bowel movement since admission. She has been urinating, however. PAST MEDICAL/SURGICAL HISTORY: 1. Osteoporosis. 2. Status post right total hip replacement in 2014, status post now 2 revisions and 2 periprosthetic fractures. 3. History of chronic lymphocytic leukemia. 4. Hypertension. 5. Cystocele with pessary. 6. History of colitis with hospitalization in August of 2014. 7. History of C. difficile. 8. History of right lower extremity DVT. 9. Status post cataract surgery. 10. Status post tonsillectomy. MEDICATIONS: 1. Tylenol p.r.n. 2. [place] 1 to 2 tablets q.4 hours p.r.n. 3. Dulcolax p.r.n. 4. Colace 100 mg b.i.d. 5. Multivitamin q. day which is going to be changed to PreserVision AREDS b.i.d. 6. Zofran p.r.n. 7. Coumadin currently on hold until her INR is in a better range. 8. Will be restarting calcium with vitamin D. ALLERGIES: PENICILLIN, LATEX, and OXYCODONE. FAMILY HISTORY: Father had a stroke. Mother, cirrhosis. Two brothers had lung cancer. SOCIAL HISTORY: She lives in [place] with her , Dung [place]. In case she cannot make decisions for herself, her is her healthcare proxy. His home phone number is [phone] or [phone]. She is a retired school nurse. She quit smoking more than 40 years ago. She rarely drinks alcohol. Their home has 2 steps to enter and has multiple levels, but she can stay on the first floor. She reports having an accessible bathroom on the first floor with walk- in shower. She believes wheelchairs will fit through. REVIEW OF SYSTEMS: See history of present illness and past medical history. Remainder of 10-system review was completed. No significant findings. PHYSICAL EXAMINATION GENERAL: Well-developed, well-nourished, appearing stated age. Mental status: No acute distress. Alert and oriented x3. VITAL SIGNS: Temperature 97.7, pulse 70, respirations 16, oxygenation 98% on room air, blood pressure 141/62. HEENT: Normocephalic, atraumatic. Oropharynx is clear. Moist mucous membranes. LUNGS: Clear to auscultation bilaterally. HEART: Has regular rate and rhythm. ABDOMEN: Active bowel sounds, soft, nontender, and nondistended. EXTREMITIES: No clubbing, cyanosis, or edema. MUSCULOSKELETAL: Exam shows functional range of motion of all of her major joints with limited testing of her right hip and knee. NEUROLOGIC: Upper and lower extremities motor 5/5 bilaterally with limited testing of the right hip and knee due to surgery. Sensation is intact in all 4 extremities. SKIN: Her dressing is clean, dry, and intact on the right lateral lower extremity. LABORATORY DATA: Today, her hemoglobin is 8.7 and hematocrit is 26. INR is 4.8. IMPRESSION: An 86-year-old woman status post right total hip replacement revision with intraoperative distal femur periprosthetic fracture. She will be admitted to [facility] so she can return to living with her . PLAN: 1. Right total hip replacement revision with distal femur periprosthetic fracture. She will have regular followup with Dr. Bartlett. Continue toe-touch weight-bearing status of the right lower extremity. Continue hip precautions. Knee immobilizer is to be on at all times. 2. Acute postoperative anemia. Followup with CBC tomorrow, H and H on Saturday, and routine labs on Fridays. 3. DVT prophylaxis with history of prior DVT. She will have daily INRs and when her INR is in an appropriate range, we will restart Coumadin at a lower dose. 4. Pain. She seems to be tolerating [place]. Continue use on an as needed basis. 5. Constipation. Her bowels will be regulated. 6. Cystocele. She has a pessary in place. 7. Hypertension. She is currently off her hydrochlorothiazide. Monitor her blood pressure to determine when that should be restarted. 8. Impaired mobility. She will be seen by Physical Therapy for bed mobility, transfer, and wheelchair mobility training within her precautions. She will need to use a walker for transfers. Family training as appropriate. 9. Impaired self-care. She will be seen by Occupational Therapy for ADL training and equipment evaluation. Once again family training as appropriate. 10. Advance directives. Her is her healthcare proxy if she cannot make decisions for herself. She requested DNR/DNI. MOLST is completed. 11. Estimated length of stay: Two weeks, then return to home with family support. CC: Dr. Matamoros; Dr. Bartlett [id number]/[facility] #: [id number] [facility]
[2016-07-13] MEDS: Docusate CAP* 100 MG PO SCH (21:41)
[2016-07-13] MEDS: Multivitamins/Minerals TAB PO SCH (21:41)
[2016-07-13] MEDS: Calcium/Vitamin D TAB 250/125* TAB PO SCH (21:41)
[2016-07-14] MEDS: HYDROcodone/ACETAMIN 5-325 MG* 1 TAB PO PRN ×3 (02:01→15:53)
[2016-07-14] MEDS: Acetaminophen TAB* 325 MG PO PRN (05:38)
[2016-07-14 07:05] LABS: Comments Flag Yes; Hematocrit 26 % (35-47); Hemoglobin 8.5 g/dl (12.0-16.0); Mean Corpuscular HGB Conc 33 g/dl (31-36); Mean Corpuscular Hemoglobin 27 pg (27-31); Mean Corpuscular Volume 83 fL (80-97); Mean Platelet Volume 8 um3 (7.4-10.4); Red Blood Count 3.13 10^6/ul (4.0-5.4); Red Cell Distribution Width 19 % (10.5-15); White Blood Count 16.5 10^3/ul (3.5-10.8)
[2016-07-14 07:06] LABS: Add Diff/Slide Review? Slide Review Added
[2016-07-14 07:18] LABS: Albumin 2.4 g/dL (3.2-5.2); BUN/Creatinine Ratio 18.3 (8-20); Calcium 8.4 mg/dL (8.6-10.3); EGFR African American 122.2 (>60); Globulin 2.3 g/dL (2-4); Potassium 3.7 mmol/L (3.5-5.0); Total Bilirubin 1.2 mg/dL (0.2-1.0); Total Protein 4.7 g/dL (6.4-8.9)
[2016-07-14] MEDS: Calcium/Vitamin D TAB 250/125* TAB PO SCH ×2 (08:07→20:33)
[2016-07-14] MEDS: Docusate CAP* 100 MG PO SCH ×2 (08:07→20:34)
[2016-07-14] MEDS: Multivitamins/Minerals TAB PO SCH (08:07)
[2016-07-14] MEDS: Multivitamins/Minera Areds(NF) 1 CAP CAP PO SCH (20:33)
[2016-07-15] MEDS: HYDROcodone/ACETAMIN 5-325 MG* 1 TAB PO PRN ×3 (03:08→20:39)
[2016-07-15] MEDS: Calcium/Vitamin D TAB 250/125* TAB PO SCH ×2 (08:13→20:40)
[2016-07-15] MEDS: Docusate CAP* 100 MG PO SCH ×2 (08:14→20:47)
[2016-07-15] MEDS: Multivitamins/Minera Areds(NF) 1 CAP CAP PO SCH ×2 (08:15→20:40)
[2016-07-15] MEDS ORDERED: Warfarin TAB(*) 2 MG PO SCH (17:00)
[2016-07-15] MEDS ORDERED: Sodium Phosphate ADULT ENEMA* 118 ml bottle ONE (19:15)
[2016-07-15] MEDS ORDERED: Sodium Phosphate ADULT ENEMA* 118 ml bottle PR PRN (19:35)
[2016-07-16 07:34] LABS: Hematocrit 26 % (35-47); Hemoglobin 8.5 g/dl (12.0-16.0)
[2016-07-16 07:35] LABS: Comments Flag Yes
[2016-07-16] MEDS: Calcium/Vitamin D TAB 250/125* TAB PO SCH ×2 (08:20→20:47)
[2016-07-16] MEDS: Docusate CAP* 100 MG PO SCH ×2 (08:20→20:49)
[2016-07-16] MEDS: HYDROcodone/ACETAMIN 5-325 MG* 1 TAB PO PRN ×3 (08:21→20:48)
[2016-07-16] MEDS: Multivitamins/Minera Areds(NF) 1 CAP CAP PO SCH ×2 (08:21→20:48)
[2016-07-16] MEDS: Acetaminophen TAB* 325 MG PO PRN (16:05)
[2016-07-16] MEDS ORDERED: Warfarin TAB(*) 2 MG PO ONE (17:00)
[2016-07-17] MEDS: Acetaminophen TAB* 325 MG PO PRN (01:58)
[2016-07-17] MEDS: Docusate CAP* 100 MG PO SCH ×2 (08:22→20:58)
[2016-07-17] MEDS: Multivitamins/Minera Areds(NF) 1 CAP CAP PO SCH ×2 (08:22→20:58)
[2016-07-17] MEDS: Calcium/Vitamin D TAB 250/125* TAB PO SCH ×2 (08:22→20:58)
[2016-07-17] MEDS: HYDROcodone/ACETAMIN 5-325 MG* 1 TAB PO PRN ×3 (08:23→17:32)
--- NOTE | 2016-07-17 12:50 | PMRUTEAM ---
PMRU: Goals Current Status: Nursing: Current Status Skin Deviations [Left Elbow] Other Skin Deviations [Right Hip] Incision Skin Deviations [Right Elbow] Other Skin Deviation Description [ redness Left Elbow] Skin Deviation Description [ clean and intact with some drainage that is clear Right Hip] and blood tinged Skin Deviation Description [ redness Right Elbow] Bladder Current Status continent Bowel Current Status Continet Nutrition Current Status Adequate Medication Current Status Takes pills whole with water, [place] for pain Physical Therapy: Current Status Bed Mobility Assistance Min Assist Transfer Moblility Assistance Supervision Transfer/Bed Mobility Rolling Walker Recommended Devices Ambulation Assistance Unable Ambulation Assistive Devices Rolling Walker Stairs Assistance Independent Stairs Recommended Devices Two Rails Number of Stairs 3 Manual Wheelchair Control/ Bilateral UE's Technique Wheelchair Propulsion Ability Standby Assistance Wheelchair Distance (ft) 300 Objective Comments Pt practiced navigating tight corners, getting through small spaces and making turns in wheelchair. Pt required standby assist to not hit other people in the gym or run into groves. Occupational Therapy: Current Status Upper Body Dressing Supervision Lower Body Dressing Min Assist Bathing Min Assist Toileting Contact Guard Assist Toilet Transfer Contact Guard Assist Shower Transfer Contact Guard Assist Eating Independent Rec Therapy: Current Status Summary of Assessment and RT assessment complete and pt. is aware of RT Clinical Impression services. Pt. was been engaged in leisure visits - cooperative, pleasant, and interactive. Treatment Goals Pt. will engage in leisure activities while on the unit. Treatment Plan Provide RT services and encourage involvement. Nutrition: Current Status Monitoring she is continuing to eat well; regular diet. BMs 2 and 2/. Education re: Coumadin/vit K provided while pt on SSU, but can review with her as needed. Labs 07/14 indicating elevated LFTs, which was not a concern per labs last week. Possibly r/t Coumadin? Goals: Physical Therapy: Initial Goals Bed Mobility Assistance Independent Transfer Mobility Assistance Independent Transfer/Bed Mobility Rolling Walker Recommended Devices Wheelchair Propulsion Ability Independent Wheelchair Distance (ft) 150 Home Exercise Program Independent Assistance Goals 2 Comment Maintain TTWB RLE Physical Therapy: Updated Goals Transfer/Bed Mobility Standard Walker Recommended Devices Occupational Therapy: Initial Goals Goals to be Completed in (Days 5-7 ) Upper Body Bathing Routine Independent Lower Body Bathing Routine Modified Independent with Upper Body Dressing Routine Independent Lower Body Dressing Routine Modified Independent with Toilet Hygeine and Clothing Modified Independent with Management Routine Toilet Transfer Routine Modified Independent with Step-In Shower Transfer Modified Independent with Routine Functional Transfers for ADL Modified Independent with Grooming Routine Independent Feeding Routine Independent Nursing: Goals Bladder Goal COntinent, own hygiene Bowel Goal Continent, own Hygiene Nutrition Goal 100% of all meals Medication Goal Identify medication Nutrition: Goals Intervention Goals 1. adequate po intake to support post-op healing and maintenance of lean body mass 2. regulation of post-op bowel pattern; no c/o constipation (or diarrhea) 3. pt will adhere to Coumadin/dietary vit K guidelines as provided Care Plan: Care Plan ADL's - Improve/Maintain Start: 07/14/16 11:32 Freq: DAILY Status: Active Target: Activity Type Activity Date Activity User E-Sign Co-Sign Detail Recorded Client Recorded Date Recorded By Document 07/14/16 11:32 [id number] 07/14/16 11:32 [id number] 07/14/16 11:32 PMRU Outcome: ADL's/ADL Transfers Orders/Interventions Occupational Therapy Evaluation & Treatment Communication Tool in Patient Room Device Yes Patient to receive OT 5x/wk for 60-120 Therex min/day Self Care Management Group Therapy UE/LE ADL's with Assist Yes: Fran ADL Transfers with Assist Yes: Fran Toileting: Transfers,Clothing Management Yes: Fran ,Hygeine w/Assist Progression Toward Outcome/Goals Progressing Cardiovascular- Improve/Maintain Start: 07/13/16 13:01 Freq: DAILY Status: Active Target: Activity Type Activity Date Activity User E-Sign Co-Sign Detail Recorded Client Recorded Date Recorded By Document 07/17/16 12:05 [id number] 07/17/16 12:05 [id number] 07/17/16 12:05 PMRU Outcome: Cardiovascular Vital Signs q Shift for 48hrs Then BID Yes Daily Weight Ordered No Current Cardiovascular Outcome/Goal Free of Abnormal Cardiac Symptoms Progression Toward Outcome/Goal Progressing DVT Prophylaxis- Improve/Maintain Start: 07/13/16 13:01 Freq: DAILY Status: Active Target: Activity Type Activity Date Activity User E-Sign Co-Sign Detail Recorded Client Recorded Date Recorded By Document 07/17/16 12:05 [id number] 07/17/16 12:05 [id number] 07/17/16 12:05 PMRU Outcome: DVT Prophylaxis Outcome/Goals Remains Free of DVT Complies with DVT Prophylaxis /Treatment Demonstrates Knowledge of DVT Prevention/ Treatment TEDS Stockings on Every AM, Off at HS Other Outcome/Goals scd's at HS Progression Toward Outcome/Goals Progressing Discharge Planning - Improve/Maintain Start: 07/13/16 13:01 Freq: DAILY Status: Active Target: Activity Type Activity Date Activity User E-Sign Co-Sign Detail Recorded Client Recorded Date Recorded By Document 07/17/16 12:05 [id number] 07/17/16 12:05 [id number] 07/17/16 12:05 PMRU Outcome: Discharge Planning Identify Patient Needs yes Update Patient Family No Outcome/Goals Demonstrates Understanding of Discharge Plan Progression Toward Outcome/Goals Progressing Education-Improve/Maintain Start: 07/13/16 13:01 Freq: DAILY Status: Active Target: Activity Type Activity Date Activity User E-Sign Co-Sign Detail Recorded Client Recorded Date Recorded By Document 07/17/16 12:05 [id number] [email or web address] 07/17/16 12:05 [id number] 07/17/16 12:05 PMRU Outcome: Education Outcome/Goals Demonstrate/ Verbalize Understanding of Written Discharge Instructions Demonstrates Skills Encourage Questions Progression Toward Outcome/Goals Progressing /GI-Improve/Maintain Start: 07/13/16 13:01 Freq: DAILY Status: Active Target: Activity Type Activity Date Activity User E-Sign Co-Sign Detail Recorded Client Recorded Date Recorded By Document 07/17/16 12:05 [id number] [email or web address] 07/17/16 12:05 [id number] 07/17/16 12:05 PMRU Outcome: Genitourinary/ Gastrointestinal Genitourinary- Outcome/Goals Remain Free of Hospital- Acquired UTI Gastrointestinal-Outcome/Goals Maintain/ Achieve Bowel Regularity in Accordance with Pt's Baseline Remain Free of Emesis Prevent Constipation Laxatives as Ordered Other Outcome/Goals Patient continent of urine. Voids on commode, wipes herself, less than 25% help from staff pulling down and up pants. Progression Toward Outcome/Goals - Progressing Progression Toward Outcome/Goals - GI Progressing Medication Administration Start: 07/13/16 13:01 Freq: DAILY Status: Active Target: Activity Type Activity Date Activity User E-Sign Co-Sign Detail Recorded Client Recorded Date Recorded By Document 07/17/16 12:05 [id number] 07/17/16 12:05 [id number] 07/17 12:05 PMRU Outcome: Medication Administration Assess Patient Knowledge/Teach Med Yes Education for all Meds Outcome/Goals Patient Independent with Medication Administration at Home Demonstrates Understanding Progression Towards Outcome/Goals Progressing Is Patient Going Home on Lovenox? No Mobility- Improve/Maintain Start: 07/13/16 15:13 Freq: DAILY Status: Active Target: Activity Type Activity Date Activity User E-Sign Co-Sign Detail Recorded Client Recorded Date Recorded By Document 07/16/16 14:26 [id number] 07/16/16 14:26 [id number] 07/16/16 14:26 PMRU Outcome: Mobility Physical Therapy Evaluation and Yes Treatment Activity OOB with Assistance Yes TTWB Yes Device Yes Assistance Yes Patient to be seen 5x/wk for 60-120 min/ Therex day for: Mobility Training W/C Mobility Balance Outcome/Goals Maintain/ Achieve Baseline Mobility Status Improve Mobility Status Demonstrates Proper Use of Assistive Devices Free from Complications of Immobility Progression Toward Outcome/Goals Progressing Bed Mobility Yes: Independent Transfers Yes: modified independent with RW Gait x ft No W/C Mobility x ft Yes: independent bilateral UE 200' Up/Down Stairs No With HEP Yes: independent Pain/Comfort- Improve/Maintain Start: 07/13/16 13:01 Freq: DAILY Status: Active Target: Activity Type Activity Date Activity User E-Sign Co-Sign Detail Recorded Client Recorded Date Recorded By Document 07/17/16 12:05 [id number] 07/17/16 12:05 [id number] 07/17/16 12:05 PMRU Outcome: Pain/Comfort Outcome/Goals Demonstrates Knowledge and Use of Available Comfort Measures Achieves Acceptable Comfort/Pain Level as Determined by Patient/Condit Maintain Comfort Level Allowing Patient to Fully Participate in Rehab Progression Toward Outcome/Goals Progressing Respiratory - Improve/Maintain Start: 07/13/16 13:01 Freq: DAILY Status: Active Target: Activity Type Activity Date Activity User E-Sign Co-Sign Detail Recorded Client Recorded Date Recorded By Document 07/17/16 12:05 [id number] 07/17/16 12:05 [id number] 07/17/16 12:05 PMRU Outcome: Respiratory Does Patient Have a Trach No Outcome/Goals Prevent Pneumonia/ Atelectasis Progression Toward Outcome/Goals Progressing Safety- Improve/Maintain Start: 07/13/16 13:01 Freq: DAILY Status: Active Target: Activity Type Activity Date Activity User E-Sign Co-Sign Detail Recorded Client Recorded Date Recorded By Document 07/17/16 12:05 [id number] [email or web address] 07/17/16 12:05 [id number] 07/17/16 12:05 PMRU Outcome: Safety Outcome/Goals Remain Free of Injury or Harm Cooperates with Safety Measures for Least Restrictive Environment Prevent Falls/ Injury Progression Toward Outcome/Goals Progressing Skin- Improve/Maintain Start: 07/13/16 13:01 Freq: DAILY Status: Active Target: Activity Type Activity Date Activity User E-Sign Co-Sign Detail Recorded Client Recorded Date Recorded By Document 07/17/16 12:05 [id number] [email or web address] 07/17/16 12:05 [id number] 07/17/16 12:05 PMRU Outcome: Skin Skin Risk Level Medium Skin Orders Dressing Change Spenco Boots Outcome/Goals Free from Decubitus Surgical Incisions Healing Progression Toward Outcome/Goals Progressing Medicine Note: Length of Stay: 3 days Anticipated Discharge Destination: Tentative Discharge Date: 07/20/16 Discharged to: Home
--- NOTE | 2016-07-17 13:13 | RAD ---
HISTORY: Right knee pain after total hip arthroplasty COMPARISONS: September 08, 2015, right femur dated July 10, 2016 VIEWS: 2, frontal and crosstable lateral views of the right knee FINDINGS: BONE DENSITY: Normal. BONES: The patient is status post internal fixation of the right femur. Again noted is a fracture of the distal femoral diaphysis. Accounting for differences in technique, this is stable from July 10, 2016. JOINTS: There is mild tricompartmental osteoarthritis. ALIGNMENT: There is no dislocation. SOFT TISSUES: Unremarkable. OTHER FINDINGS: None. IMPRESSION: 1. STATUS POST INTERNAL FIXATION OF THE RIGHT FEMUR WITH PERSISTENT FRACTURE OF THE DISTAL FEMORAL METAPHYSIS. 2. MILD OSTEOARTHRITIS.
[2016-07-18] MEDS: HYDROcodone/ACETAMIN 5-325 MG* 1 TAB PO PRN ×5 (00:01→20:25)
[2016-07-18] MEDS: Acetaminophen TAB* 325 MG PO PRN (06:06)
[2016-07-18] MEDS: Docusate CAP* 100 MG PO SCH ×2 (08:08→20:28)
[2016-07-18] MEDS: Calcium/Vitamin D TAB 250/125* TAB PO SCH ×2 (08:08→20:27)
[2016-07-18] MEDS: SACCHAROMYCES BOULARDII 250 MG PO SCH (08:09)
[2016-07-18] MEDS: Multivitamins/Minera Areds(NF) 1 CAP CAP PO SCH ×2 (08:09→20:26)
[2016-07-18] MEDS: Warfarin TAB(*) 1 MG PO SCH (16:52)
[2016-07-19] MEDS: Acetaminophen TAB* 325 MG PO PRN ×2 (00:32→19:24)
[2016-07-19] MEDS: Docusate CAP* 100 MG PO SCH ×2 (07:41→20:52)
[2016-07-19] MEDS: Calcium/Vitamin D TAB 250/125* TAB PO SCH ×2 (07:41→20:52)
[2016-07-19] MEDS: SACCHAROMYCES BOULARDII 250 MG PO SCH (07:42)
[2016-07-19] MEDS: Multivitamins/Minera Areds(NF) 1 CAP CAP PO SCH ×2 (07:42→20:52)
[2016-07-19] MEDS: HYDROcodone/ACETAMIN 5-325 MG* 1 TAB PO PRN ×4 (07:42→20:53)
[2016-07-20] MEDS: HYDROcodone/ACETAMIN 5-325 MG* 1 TAB PO PRN ×4 (01:48→20:12)
[2016-07-20 07:16] LABS: Hematocrit 25 % (35-47); Hemoglobin 8.1 g/dl (12.0-16.0); Mean Corpuscular HGB Conc 33 g/dl (31-36); Mean Corpuscular Hemoglobin 27 pg (27-31); Mean Corpuscular Volume 82 fL (80-97); Mean Platelet Volume 7 um3 (7.4-10.4); Red Blood Count 3.03 10^6/ul (4.0-5.4); Red Cell Distribution Width 19 % (10.5-15); White Blood Count 18.6 10^3/ul (3.5-10.8)
[2016-07-20 07:30] LABS: Add Diff/Slide Review? Slide Review Added; Comments Flag Yes
[2016-07-20 07:46] LABS: Albumin 2.6 g/dL (3.2-5.2); BUN/Creatinine Ratio 25.9 (8-20); Calcium 8.7 mg/dL (8.6-10.3); EGFR Non-African American 107.3 (>60); Globulin 2.6 g/dL (2-4); Total Bilirubin 0.8 mg/dL (0.2-1.0); Total Protein 5.2 g/dL (6.4-8.9)
[2016-07-20] MEDS: Multivitamins/Minera Areds(NF) 1 CAP CAP PO SCH ×2 (08:31→20:14)
[2016-07-20] MEDS: SACCHAROMYCES BOULARDII 250 MG PO SCH (08:31)
[2016-07-20] MEDS: Docusate CAP* 100 MG PO SCH ×2 (08:31→20:13)
[2016-07-20] MEDS: Calcium/Vitamin D TAB 250/125* TAB PO SCH ×2 (08:31→20:13)
[2016-07-20] MEDS: Warfarin TAB(*) 1 MG PO SCH (17:16)
[2016-07-21] MEDS: HYDROcodone/ACETAMIN 5-325 MG* 1 TAB PO PRN ×5 (00:08→21:44)
[2016-07-21] MEDS: SACCHAROMYCES BOULARDII 250 MG PO SCH (08:27)
[2016-07-21] MEDS: Calcium/Vitamin D TAB 250/125* TAB PO SCH ×2 (08:28→20:44)
[2016-07-21] MEDS: Multivitamins/Minera Areds(NF) 1 CAP CAP PO SCH ×2 (08:28→20:44)
[2016-07-21] MEDS: Docusate CAP* 100 MG PO SCH ×2 (08:29→20:44)
[2016-07-22] MEDS: Acetaminophen TAB* 325 MG PO PRN ×2 (01:19→13:16)
[2016-07-22] MEDS: HYDROcodone/ACETAMIN 5-325 MG* 1 TAB PO PRN ×4 (05:15→20:53)
[2016-07-22] MEDS: Docusate CAP* 100 MG PO SCH ×2 (09:42→20:52)
[2016-07-22] MEDS: Multivitamins/Minera Areds(NF) 1 CAP CAP PO SCH ×2 (09:42→20:52)
[2016-07-22] MEDS: Calcium/Vitamin D TAB 250/125* TAB PO SCH ×2 (09:42→20:52)
[2016-07-22] MEDS: SACCHAROMYCES BOULARDII 250 MG PO SCH (09:45)
[2016-07-22] MEDS ORDERED: Magnesium Hydroxide LIQ* 30 ML UDC PO PRN (09:59)
[2016-07-22] MEDS ORDERED: Warfarin TAB(*) 1 MG PO SCH (17:00)
[2016-07-23] MEDS: Acetaminophen TAB* 325 MG PO PRN (01:34)
[2016-07-23] MEDS: SACCHAROMYCES BOULARDII 250 MG PO SCH (08:07)
[2016-07-23] MEDS: Calcium/Vitamin D TAB 250/125* TAB PO SCH ×2 (08:07→21:03)
[2016-07-23] MEDS: Multivitamins/Minera Areds(NF) 1 CAP CAP PO SCH ×2 (08:07→21:03)
[2016-07-23] MEDS: Docusate CAP* 100 MG PO SCH ×2 (08:07→21:03)
[2016-07-23] MEDS: HYDROcodone/ACETAMIN 5-325 MG* 1 TAB PO PRN ×3 (08:08→18:21)
[2016-07-23] MEDS ORDERED: Warfarin TAB(*) 2 MG PO SCH (17:00)
[2016-07-24] MEDS: HYDROcodone/ACETAMIN 5-325 MG* 1 TAB PO PRN ×3 (01:29→11:41)
[2016-07-24 05:24] VITALS: BP 132/60
[2016-07-24] MEDS: Docusate CAP* 100 MG PO SCH (08:14)
[2016-07-24] MEDS: Calcium/Vitamin D TAB 250/125* TAB PO SCH (08:14)
[2016-07-24] MEDS: SACCHAROMYCES BOULARDII 250 MG PO SCH (08:15)
[2016-07-24] MEDS: Multivitamins/Minera Areds(NF) 1 CAP CAP PO SCH (08:15)
--- NOTE | 2016-08-08 15:29 | DS ---
DISCHARGE SUMMARY: DATE OF ADMISSION: 07/13/16 DATE OF DISCHARGE: 07/24/16 DISCHARGE DIAGNOSES: 1. Revision, right total hip replacement. 2. Periprosthetic distal femur fracture. 3. Osteoporosis. 4. History of chronic lymphocytic leukemia. HISTORY OF ILLNESS AND HOSPITAL COURSE: For complete history of the events leading up to her rehab stay, please see the history and physical as dictated by Dr. Lisa Merchant on 07/13/15. While on the rehab unit, the patient remained largely medically stable. She was maintained on Coumadin for DVT prophylaxis. Her incision healed well. She did complain of knee pain and had a followup x-ray, which showed that her mayito was in place. The patient was otherwise medically stable. She was seen by both Physical and Occupational Therapy and made good gain with both disciplines. With Physical Therapy at the time of admission, the patient required supervision to contact guard to do transfers. She was unable to ambulate. She was able to propel a wheelchair with standby assistance. With Occupational Therapy, she was contact guard to min assist for toileting and toilet transfers. By the time of discharge, the patient required supervision to do a transfer. She was unable to ambulate because of her nonweightbearing status. She was independent with toileting. The patient's came in for family training prior to discharge. She was discharged home on 07/24/16. DISCHARGE DIET: Regular. DISCHARGE MEDICATIONS: 1. Os-Phil D one tablet twice a day. 2. [place] 5/325 one to two tablets every 4 hours as needed for pain. 3. Coumadin 2 mg daily or as directed. 4. Hydrochlorothiazide 25 mg daily. 5. Florastor 250 mg daily. 6. [place]-3 fatty acids 500 mg every morning. 7. PreserVision tablets one tablet twice a day. SERVICES AFTER DISCHARGE: Through visiting nurse service, she will have home nursing, home physical therapy, and a home health aide. Follow up with Dr. Alka Bartlett in 4 weeks. [id number]/[facility] #: [id number] MTDD
== END 2016-07-24 12:30 | disposition home or self-care (01) | DRG 560 ==
LOC: PMRU 11:23 → UNDODISIN 07-24 12:30
PROVIDERS: ADMIT Physical Medicine & Rehabilitation; ATTEND Physical Medicine & Rehabilitation
PROC: F07Z5ZZ Bed Mobility Treatment (ICD-10-PCS; principal; 2016-07-13)
PROC: F07Z8ZZ Transfer Training Treatment (ICD-10-PCS; 2016-07-13)
PROC: F07Z9ZZ Gait Training/Functional Ambulation Treatment (ICD-10-PCS; 2016-07-13)
PROC: F07Z4ZZ Wheelchair Mobility Treatment (ICD-10-PCS; 2016-07-13)
PROC: F08Z0ZZ Bathing/Showering Techniques Treatment (ICD-10-PCS; 2016-07-13)
PROC: F08Z1ZZ Dressing Techniques Treatment (ICD-10-PCS; 2016-07-13)
PROC: F08Z3ZZ Feeding/Eating Treatment (ICD-10-PCS; 2016-07-13)
DX: Z47.1 Aftercare following joint replacement surgery (principal); C91.10 Chronic lymphocytic leukemia of B-cell type not having achieved remission; Z96.641 Presence of right artificial hip joint; M81.0 Age-related osteoporosis without current pathological fracture; I10 Essential (primary) hypertension; Z86.718 Personal history of other venous thrombosis and embolism; Z79.01 Long term (current) use of anticoagulants; Z79.899 Other long term (current) drug therapy; Z88.6 Allergy status to analgesic agent; Z88.0 Allergy status to penicillin; Z82.3 Family history of stroke; Z80.1 Family history of malignant neoplasm of trachea, bronchus and lung; Z87.891 Personal history of nicotine dependence; K59.00 Constipation, unspecified; N81.10 Cystocele, unspecified; Z99.3 Dependence on wheelchair
CPT/HCPCS: 36415; 80053; 85014; 85018; 85025; 85060; 85610; A9270-GY

== ENCOUNTER 2016-08-13 10:31 | Inpatient (IN) | payer MEDICARE, BC ==
[2016-08-13] MEDS ORDERED: Bisacodyl SUPP* 10 MG SUPP PR PRN (13:00)
[2016-08-13] MEDS ORDERED: Acetaminophen TAB* 325 MG PO PRN (13:00)
--- NOTE | 2016-08-13 17:48 | HP ---
ADMISSION HISTORY AND PHYSICAL: DATE OF ADMISSION: 08/13/16 REASON FOR ADMISSION: Periprosthetic fracture of femur following total replacement of right hip; revision of same. HISTORY OF PRESENT ILLNESS: Meena Lee is an 86-year-old female. On 07/10/16 , she underwent a second revision of her right total hip replacement, which was originally put in, in 2014. In the past, she had sustained a periprosthetic fracture. Because there was clear loosening of the femoral stem, it was decided she would have that component replaced. She went to the OR on 07/10/16 , but the patient sustained a distal femur periprosthetic fracture during the process. She was on the rehab unit from 07/13/16 until 07/24/16. At the time of discharge, she was still toe touch weightbearing. She was discharged home with her . She followed up with Dr. Alka Bartlett. At the followup appointment x-ray, it was discovered that the fracture had displaced. She was referred on to Dr. Reyes. He agreed to see her. The patient was admitted to [facility], 08/06/16. She underwent revision ORIF of the periprosthetic fracture on 08/07/[address] Reyes. After surgery, she was put on Xarelto for DVT prophylaxis. The patient did have several medical issues. She was noted to have an increased white blood cell count but it was known that she had chronic lymphocytic leukemia. Urine was done. Cultures were negative. She had acute blood loss anemia and was transfused 2 units of packed cells. 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 Her blood pressure was in good control. She was made 25% weightbearing. She has failed to have physical therapy and occupational therapy needs. She is now being admitted for inpatient rehab so that she might return to independent living. PAST MEDICAL HISTORY: Significant for osteoporosis. She has a history of CLL as mentioned previously, a cystocele. She has had DVT in the past and has a history of hypertension and the aforementioned right total hip replacement. CURRENT MEDICATIONS: Include: 1. Xarelto for DVT prophylaxis. 2. She is also on oxycodone for pain control. 3. At the present time, her hydrochlorothiazide has not been restarted. ALLERGIES: The patient has allergies listed to LATEX and PENICILLIN. SOCIAL HISTORY: She is a nonsmoker. She rarely drinks alcohol. She lives with her . Her acts as her healthcare proxy. Their house has 2 steps to enter. It is a multiple level house, but she could stay on the first floor. REVIEW OF SYSTEMS: The patient reports her last bowel movement was yesterday. No current chest pain or shortness of breath. PHYSICAL EXAMINATION VITAL SIGNS: Temperature is 98.9, blood pressure is 147/59, pulse is 56, and respirations are 18. HEENT: Her extraocular movements are intact. Tongue is midline. NECK: Supple with no lymphadenopathy. LUNGS: Sounded clear to auscultation bilaterally. HEART: Sounds regular. S1 and S2 audible. ABDOMEN: Soft and nontender. EXTREMITIES: Her right hip is bandaged, which is clean and dry. Trace edema is noted in the right foot. NEUROLOGIC: She is awake, alert and oriented. Muscle strength is 5/5 except the right leg, which is 3/5 secondary to pain. FUNCTIONAL EXAM: She transfers with contact guard to min assist. ASSESSMENT: Periprosthetic fracture after right total hip replacement with new revision ORIF. PLAN/RECOMMENDATIONS: Integrate her into a comprehensive and therapeutic rehab program on the following goals: 1. Physical Therapy will work with the patient. They are going to work on functional transfer training and ambulation training with a walker. They will note she is partial weightbearing on the right leg. 2. Occupational Therapy will see the patient and work on her activities of daily living including toileting and toilet transfers. 3. Xarelto for DVT prophylaxis. 4. Adequate analgesia. 5. Her bowels will be regulated. 6. marketing services manager will be closely involved to make sure that any services and equipment that the patient requires are in place prior to discharge. 7. Advanced directives: She is a full code. Her is her healthcare proxy. 8. Family training is appropriate. 9. Home with appropriate services. ESTIMATED LENGTH OF STAY: For 10 to 12 days. [id number]/[facility] #: [id number] ALFREDITO
[2016-08-13] MEDS: oxyCODONE TAB* 5 MG TAB PO PRN (19:05)
[2016-08-13] MEDS: PRESERVISION AREDS PO SCH (21:06)
[2016-08-13] MEDS: Docusate CAP* 100 MG PO SCH (21:06)
[2016-08-13] MEDS: Senna TAB PO SCH (21:15)
[2016-08-14] MEDS: oxyCODONE TAB* 5 MG TAB PO PRN ×5 (01:39→20:16)
[2016-08-14] MEDS: PRESERVISION AREDS PO SCH ×2 (09:07→20:16)
[2016-08-14] MEDS: SACCHAROMYCES BOULARDII PO SCH (09:07)
[2016-08-14] MEDS: Polyethylene Glycol 3350* 17 GM PACKET PO SCH (09:07)
[2016-08-14] MEDS: [UNRECOGNIZED DRUG - OTHER] PO SCH (09:07)
[2016-08-14] MEDS: Docusate CAP* 100 MG PO SCH ×2 (09:07→20:16)
[2016-08-14] MEDS: Rivaroxaban TAB(*) 10 MG PO SCH (09:07)
--- NOTE | 2016-08-14 12:40 | PMRUTEAM ---
PMRU: Goals Current Status: Nursing: Current Status Skin Deviations [Coccyx] Other Skin Deviations [Right Thigh] Incision Skin Deviation Description [ Reddened. Skin cream applied Coccyx] Skin Deviation Description [ x2 Right Thigh] Physical Therapy: Current Status Bed Mobility Assistance Supervision Transfer Moblility Assistance supervisiom Transfer/Bed Mobility Rolling Walker Recommended Devices Ambulation Assistance contact guard Ambulation Assistive Devices Rolling Walker Stairs Assistance Not Tested Stairs Recommended Devices Two Rails Number of Stairs 3 Occupational Therapy: Current Status Upper Body Dressing Independent,Supervision Lower Body Dressing Min Assist,Mod Assist Bathing Min Assist Toileting Contact Guard Assist Toilet Transfer Contact Guard Assist Shower Transfer Contact Guard Assist Eating Independent Rec Therapy: Current Status Summary of Assessment and RT assessment re-entered and services re- Clinical Impression introduced d/t admission within 30 days of d/c from the unit. Pt. was open to continued leisure visits. Treatment Goals Pt. will engage in leisure activities while on the unit. Treatment Plan Provide RT services and encourage involvement. Social Work: Current Status Discharge Plan return home with home care svs and family support Potential for Family Training pt's is involved and attentive Anticipated Discharge Home Destination Discharge With home care svs and family support Nutrition: Current Status Monitoring Pt at nutrition risk due to post op status, fair intake. Pt recognizes need to maximize intake including protein and will be working with her to increase po. No skin breakdown. Goals: Physical Therapy: Initial Goals Bed Mobility Assistance Independent Transfer Mobility Assistance Independent Transfer/Bed Mobility Rolling Walker Recommended Devices Ambulation Independent Ambulation Recommended Devices Rolling Walker Ambulation Distance 100 Stairs Assistance Independent Stair Recommended Devices Two Rails Number of Stairs 1 Physical Therapy: Updated Goals Transfer/Bed Mobility Rolling Walker Recommended Devices Occupational Therapy: Initial Goals Goals to be Completed in (Days 2-3 ) Upper Body Bathing Routine Independent Lower Body Bathing Routine Modified Independent with Lower Body Bathing Assistive LH sponge Devices Comment Upper Body Dressing Routine Independent Lower Body Dressing Routine Minimal Contact Assist Toilet Hygeine and Clothing Modified Independent with Management Routine Toilet Transfer Routine Modified Independent with Step-In Shower Transfer Modified Independent with Routine Functional Transfers for ADL Modified Independent with Grooming Routine Independent Feeding Routine Independent Nutrition: Goals Intervention Goals 1. Adequate oral intake to support post-op recovery, maintain lean body mass, weight maintenance. 2. Maintain regular bowel pattern w/o constipation/diarrhea. Social Work: Goals Discharge Plan return home with home care svs and family support Potential for Family Training pt's is involved and attentive Anticipated Discharge Home Destination Discharge With home care svs and family support Care Plan: Care Plan Coping/Psych-Improve/Maintain Start: 08/14/16 02:24 Freq: QSHIFT Status: Active Target: Activity Type Activity Date Activity User E-Sign Co-Sign Detail Recorded Client Recorded Date Recorded By Document 08/14/16 10:25 [id number] 08/14/16 10:25 [id number] 08/14/16 10:25 PMRU Outcome: Coping/Psychosocial Coping Outcome/Goals Verbalization of Acceptance of Rehab Admit Verbalization of Sense of Control Over Health Status Utilization of Appropriate Problem Solving Techniques Willingness to Participate in Treatment Plan and Basic Needs Psychosocial Outcome/Goals Maintain/ Improve Emotional Health Demonstrates Knowledge of Healthy Coping Mechanisms Available Cooperate/ Participate in Plan Progression Toward Outcome/Goals - Progressing Coping Progression Toward Outcome/Goals - Progressing Psychosocial DVT Prophylaxis- Improve/Maintain Start: 08/14/16 02:24 Freq: QSHIFT Status: Active Target: Activity Type Activity Date Activity User E-Sign Co-Sign Detail Recorded Client Recorded Date Recorded By Document 08/14/16 10:25 [id number] [email or web address] 08/14/16 10:25 [id number] 08/14/16 10:25 PMRU Outcome: DVT Prophylaxis Outcome/Goals Remains Free of DVT TEDS Stockings on Every AM, Off at HS Progression Toward Outcome/Goals Progressing Discharge Planning - Improve/Maintain Start: 08/14/16 02:24 Freq: QSHIFT Status: Active Target: Activity Type Activity Date Activity User E-Sign Co-Sign Detail Recorded Client Recorded Date Recorded By Document 08/14/16 10:25 [id number] 08/14/16 10:25 [id number] 08/14/16 10:25 PMRU Outcome: Discharge Planning Update Patient Family No Outcome/Goals Demonstrates Understanding of Discharge Plan Progression Toward Outcome/Goals Progressing Education-Improve/Maintain Start: 08/14/16 02:24 Freq: QSHIFT Status: Active Target: Activity Type Activity Date Activity User E-Sign Co-Sign Detail Recorded Client Recorded Date Recorded By Document 08/14/16 10:25 [id number] 08/14/16 10:25 [id number] 08/14/16 10:25 PMRU Outcome: Education Outcome/Goals Demonstrate/ Verbalize Understanding of Written Discharge Instructions Demonstrates Skills Encourage Questions Progression Toward Outcome/Goals Progressing Medication Administration Start: 08/14/16 02:24 Freq: QSHIFT Status: Active Target: Activity Type Activity Date Activity User E-Sign Co-Sign Detail Recorded Client Recorded Date Recorded By Document 08/14/16 10:25 [id number] [email or web address] 08/14/16 10:25 [id number] 08/14/16 10:25 PMRU Outcome: Medication Administration Assess Patient Knowledge/Teach Med Yes Education for all Meds Outcome/Goals Patient Independent with Medication Administration at Home Family/ Caregiver Administer Medications at Home Progression Towards Outcome/Goals Progressing Is Patient Going Home on Lovenox? No Neurological- Improve/Maintain Start: 08/14/16 02:24 Freq: QSHIFT Status: Active Target: Activity Type Activity Date Activity User E-Sign Co-Sign Detail Recorded Client Recorded Date Recorded By Document 08/14/16 10:25 [id number] [email or web address] 08/14/16 10:25 [id number] 08/14/16 10:25 PMRU Outcome: Neurological Weakness/Aphasia Weakness Right Side Outcome/Goals Maintain/ Achieve Baseline Neurological Status Maintain/ Improve Strength/ROM Progression Toward Outcome/Goals Progressing Pain/Comfort- Improve/Maintain Start: 08/14/16 02:24 Freq: QSHIFT Status: Active Target: Activity Type Activity Date Activity User E-Sign Co-Sign Detail Recorded Client Recorded Date Recorded By Document 08/14/16 10:25 [id number] 08/14/16 10:25 [id number] 08/14/16 10:25 PMRU Outcome: Pain/Comfort Outcome/Goals Demonstrates Knowledge and Use of Available Comfort Measures Maintain Comfort Level Allowing Patient to Fully Participate in Rehab Progression Toward Outcome/Goals Progressing Safety- Improve/Maintain Start: 08/14/16 02:24 Freq: QSHIFT Status: Active Target: Activity Type Activity Date Activity User E-Sign Co-Sign Detail Recorded Client Recorded Date Recorded By Document 08/14/16 10:25 [id number] [email or web address] 08/14/16 10:25 [id number] 08/14/16 10:25 PMRU Outcome: Safety Outcome/Goals Remain Free of Injury or Harm Cooperates with Safety Measures for Least Restrictive Environment Prevent Falls/ Injury Equipment Needed Progression Toward Outcome/Goals Progressing Skin- Improve/Maintain Start: 08/14/16 02:24 Freq: QSHIFT Status: Active Target: Activity Type Activity Date Activity User E-Sign Co-Sign Detail Recorded Client Recorded Date Recorded By Document 08/14/16 10:25 [id number] [email or web address] 08/14/16 10:25 [id number] 08/14/16 10:25 PMRU Outcome: Skin Skin Risk Level Medium Skin Orders Heels Off Bed Outcome/Goals Maintain/ Improve Skin Intergrity Surgical Incisions Healing Progression Toward Outcome/Goals Progressing Medicine Note: Length of Stay: 3 days Anticipated Discharge Destination: Home Tentative Discharge Date: 08/17/16 Discharged to: Home
[2016-08-14] MEDS: Senna TAB PO SCH (20:18)
[2016-08-15] MEDS: oxyCODONE TAB* 5 MG TAB PO PRN ×4 (00:19→21:28)
[2016-08-15 07:10] LABS: Hematocrit 24 % (35-47); Hemoglobin 7.7 g/dl (12.0-16.0); Mean Corpuscular HGB Conc 32 g/dl (31-36); Mean Corpuscular Hemoglobin 26 pg (27-31); Mean Corpuscular Volume 82 fL (80-97); Mean Platelet Volume 7 um3 (7.4-10.4); Red Blood Count 2.97 10^6/ul (4.0-5.4); Red Cell Distribution Width 19 % (10.5-15); White Blood Count 18.8 10^3/ul (3.5-10.8)
[2016-08-15 07:28] LABS: Add Diff/Slide Review? Slide Review Added; Comments Flag Yes
[2016-08-15 07:29] LABS: Albumin 2.7 g/dL (3.2-5.2); BUN/Creatinine Ratio 25.5 (8-20); Calcium 8.7 mg/dL (8.6-10.3); EGFR Non-African American 125.9 (>60); Globulin 2.7 g/dL (2-4); Potassium 4.1 mmol/L (3.5-5.0); Total Bilirubin 0.8 mg/dL (0.2-1.0); Total Protein 5.4 g/dL (6.4-8.9)
[2016-08-15] MEDS: Rivaroxaban TAB(*) 10 MG PO SCH (08:00)
[2016-08-15] MEDS: SACCHAROMYCES BOULARDII PO SCH (08:00)
[2016-08-15] MEDS: Polyethylene Glycol 3350* 17 GM PACKET PO SCH (08:00)
[2016-08-15] MEDS: PRESERVISION AREDS PO SCH ×2 (08:00→21:28)
[2016-08-15] MEDS: Docusate CAP* 100 MG PO SCH ×2 (08:00→21:28)
[2016-08-15] MEDS: [UNRECOGNIZED DRUG - OTHER] PO SCH (08:00)
[2016-08-15] MEDS ORDERED: GENTEAL TEARS BOTH EYES PRN (20:04)
[2016-08-15] MEDS: Senna TAB PO SCH (21:43)
[2016-08-16 06:43] LABS: Hematocrit 24 % (35-47); Hemoglobin 7.6 g/dl (12.0-16.0); Mean Corpuscular HGB Conc 32 g/dl (31-36); Mean Corpuscular Hemoglobin 26 pg (27-31); Mean Corpuscular Volume 81 fL (80-97); Mean Platelet Volume 7 um3 (7.4-10.4); Red Blood Count 2.94 10^6/ul (4.0-5.4); Red Cell Distribution Width 19 % (10.5-15); White Blood Count 19.3 10^3/ul (3.5-10.8)
[2016-08-16] MEDS: Docusate CAP* 100 MG PO SCH ×2 (08:06→20:12)
[2016-08-16] MEDS: SACCHAROMYCES BOULARDII PO SCH (08:06)
[2016-08-16] MEDS: [UNRECOGNIZED DRUG - OTHER] PO SCH (08:06)
[2016-08-16] MEDS: PRESERVISION AREDS PO SCH ×2 (08:06→20:12)
[2016-08-16] MEDS: Polyethylene Glycol 3350* 17 GM PACKET PO SCH (08:06)
[2016-08-16] MEDS: Rivaroxaban TAB(*) 10 MG PO SCH (08:06)
[2016-08-16] MEDS: oxyCODONE TAB* 5 MG TAB PO PRN ×3 (10:37→22:45)
[2016-08-16] MEDS ORDERED: Sodium Phosphate ADULT ENEMA* 118 ml bottle PR PRN (17:48)
[2016-08-16] MEDS: Senna TAB PO SCH (20:13)
[2016-08-17 06:12] VITALS: BP 129/53
[2016-08-17 06:24] LABS: Hematocrit 26 % (35-47); Hemoglobin 8.1 g/dl (12.0-16.0); Mean Corpuscular HGB Conc 32 g/dl (31-36); Mean Corpuscular Hemoglobin 26 pg (27-31); Mean Corpuscular Volume 81 fL (80-97); Mean Platelet Volume 7 um3 (7.4-10.4); Red Blood Count 3.16 10^6/ul (4.0-5.4); Red Cell Distribution Width 20 % (10.5-15)
[2016-08-17] MEDS: Rivaroxaban TAB(*) 10 MG PO SCH (07:22)
[2016-08-17] MEDS: [UNRECOGNIZED DRUG - OTHER] PO SCH (07:22)
[2016-08-17] MEDS: PRESERVISION AREDS PO SCH (07:22)
[2016-08-17] MEDS: oxyCODONE TAB* 5 MG TAB PO PRN ×2 (07:22→14:48)
[2016-08-17] MEDS: Docusate CAP* 100 MG PO SCH (07:22)
[2016-08-17] MEDS: SACCHAROMYCES BOULARDII PO SCH (07:22)
[2016-08-17] MEDS: Polyethylene Glycol 3350* 17 GM PACKET PO SCH (07:23)
--- NOTE | 2016-08-17 10:22 | RAD ---
HISTORY: Postop right hip arthroplasty COMPARISONS: July 30, 2016 VIEWS: 6, frontal and lateral views of the right femur FINDINGS: BONE DENSITY: Normal. BONES: The patient is status post right hip arthroplasty and internal fixation of the distal right femur. There is no hardware failure or osteolysis. Again noted is a fracture of the distal right femur. There has been interval revision of the right femoral fixation plate JOINTS: The patient is status post right hip arthroplasty ALIGNMENT: There is no dislocation. SOFT TISSUES: Unremarkable. OTHER FINDINGS: None. IMPRESSION: STATUS POST RIGHT HIP ARTHROPLASTY AND INTERNAL FIXATION OF THE RIGHT FEMUR
--- NOTE | 2016-08-17 10:27 | RAD ---
Indication: Postop internal fixation distal femur fracture. Comparison: Femur examination of the same date. Technique: AP and crosstable lateral views RIGHT knee. Report: Normal articular alignment at the knee. Chondrocalcinosis evident involving the hyaline articular cartilage and fibrocartilage menisci. No significant knee joint effusion evident. Bone density appears decreased throughout. Lateral cortical plate and multiple fixation screws as well as cerclage wires traverse the distal diaphyseal fracture of the femur with gross anatomic alignment. Suggestion of potential bone graft placement anteriorly. IMPRESSION: Post ORIF distal femur fracture with gross anatomic alignment
--- NOTE | 2016-08-18 15:08 | DS ---
DISCHARGE SUMMARY: DATE OF ADMISSION: 08/13/16 DATE OF DISCHARGE: 08/17/16 DISCHARGE DIAGNOSES: 1. Revision, open reduction internal fixation, right femur following a periprosthetic fracture. 2. Osteoporosis. 3. Chronic lymphocytic leukemia. 4. Right total hip replacement. 5. History of deep vein thrombosis. HISTORY OF ILLNESS AND HOSPITAL COURSE: For a complete history of the events leading up to her rehab stay, please see the history and physical dictated by me on 08/13/16. While on the rehab unit, the patient was stable from the medical point of view. Her wound healed well. Her hemoglobin and hematocrit were stable while on the rehab unit. Hemoglobin was 7.7, hematocrit was 24 on August 15 and at the time of discharge on August 17, his hemoglobin was 8.1 and hematocrit was 26. Her white count was elevated throughout her rehab stay but this was typical for her with her CLL. The patient was maintained on Xarelto for DVT prophylaxis. The patient was seen by Physical Therapy and Occupational Therapy and made good gains with both disciplines. With physical therapy at the time of admission, the patient required supervision to contact guard to a transfer. She was contact guard to ambulate about 20 feet, maintaining her weightbearing status. With occupational therapy, she was mini assist for lower body dressing, contact guard assist for toileting and contact guard assist for toilet transfers. By the time of discharge, she was independent with transfers, independent ambulating 50 feet and not able to do stairs, independent with bathing and tub transfers, did require assistance for lower body dressing. The patient was discharged home on 08/17/16. DISCHARGE DIET: Regular. DISCHARGE MEDICATIONS: Included: 1. Xarelto 10 mg daily. 2. Oxycodone 5 mg tablets every 4 hours as needed. 3. Fleet Enema 1 bottle rectally every day as needed. 4. Florastor supplement 1 capsule orally daily. 5. AREDS PreserVision 1 tablet orally twice daily. DISCHARGE PLAN: Services after discharge through visiting nurse service. She will have home nursing, home physical therapy, and home health aide. To follow up with Dr. Terry Reyes in 4 to 6 weeks. Of note, she did have x-rays ordered by Dr. Alka Bartlett prior to discharge. Her femur x-rays showed her mayito in good position. CC: Dr. Cindy Matamoros* [id number]/[facility] #: [id number] ALFREDITO
== END 2016-08-17 15:10 | disposition home or self-care (01) | DRG 560 ==
LOC: PMRU 12:35
PROVIDERS: ADMIT Physical Medicine & Rehabilitation; ATTEND Physical Medicine & Rehabilitation
PROC: F07Z5ZZ Bed Mobility Treatment (ICD-10-PCS; principal; 2016-08-13)
PROC: F07Z9ZZ Gait Training/Functional Ambulation Treatment (ICD-10-PCS; 2016-08-13)
PROC: F07Z8ZZ Transfer Training Treatment (ICD-10-PCS; 2016-08-13)
PROC: F08Z0ZZ Bathing/Showering Techniques Treatment (ICD-10-PCS; 2016-08-13)
PROC: F08Z1ZZ Dressing Techniques Treatment (ICD-10-PCS; 2016-08-13)
PROC: F08Z3ZZ Feeding/Eating Treatment (ICD-10-PCS; 2016-08-13)
DX: M97.01XD Periprosthetic fracture around internal prosthetic right hip joint, subsequent encounter (principal); C91.10 Chronic lymphocytic leukemia of B-cell type not having achieved remission; D50.0 Iron deficiency anemia secondary to blood loss (chronic); M81.0 Age-related osteoporosis without current pathological fracture; Z96.641 Presence of right artificial hip joint; Z86.718 Personal history of other venous thrombosis and embolism; Z79.01 Long term (current) use of anticoagulants; I10 Essential (primary) hypertension; Z88.0 Allergy status to penicillin; Z91.040 Latex allergy status
CPT/HCPCS: 36415; 80053; 85025; 85027; A9270-GY

== ENCOUNTER 2018-01-25 08:18 | Emergency (ER) | payer MEDICARE, OTHER ==
--- OUTSIDE RECORDS SUMMARY | 2018-01-25 08:26 | XMS REPORT ---
:1930 External Reference #:[id number] Author Organization [facility] Address [address] [place] [address] Phone [phone] Care Team Providers Name Role Phone Cindy Matamoros M.D. Care Team Information Consumer Recruiter Unavailable Cindy Matamoros M.D. Primary Care Physician Unavailable Payers Type Date Identification Numbers Payment Provider Subscriber Medicare Primary Effective: Policy Number: Medicare Boogie Lee 1995 [id number] PayID: [id number] [address] [place] [address] Commercial Effective: 2017 Policy Number: [id number] [place] Mitch Lee PayID: [id number] [address] [place] [address] Commercial Effective: 2017 Policy Number: [id number] [facility] Dung Lee PayID: [id number] [address] [place] [address] Problems Date Description Provider Status Onset: 10/26/2014 Chronic lymphoid leukemia, disease Cindy Matamoros M.D. Active Onset: 10/26/2014 Benign essential hypertension Cindy Matamoros M.D. Active Onset: 10/26/2014 Lymphoid leukemia in remission Cindy Matamoros M.D. Active Onset: 10/26/2014 Osteoporosis Cindy Matamoros M.D. Active Onset: 08/31/2015 H/O: Deep vein thrombosis Cindy Matamoros M.D. 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 Cigarette Use Former Cigarette Smoker quit 40 years ago, 1/2 ppd x 20 years ETOH Use Rare Smoking Patient is a former smoker Exercise Type/Frequency Exercises sporadically Allergies, Adverse Reactions, Alerts Date Description Reaction Status Severity Comments 10/26/2014 Penicillin slight rash active Medications Medication Date Status Form Strength Qnty SIG Indications Ordering Provider Preservision Areds 00 Active Capsules 1 by mouth Unknown /0000 bid Estrace Active Cream 0.1mg/GM / Unknown / applicatorf ul vaginally nightly 2x a week Hydrochlorothiazid Active Tablets 25mg 90tab 1 by mouth Cindy s every day Noelle Matamoros Anusol-HC 09/17 Hx Cream 2.5% 30uni apply twice a Camron Gan M.D. 01/23 Ciprofloxacin HCL 09/05 Hx Tablets 250mg 6tabs 1 tab twice a day x 3 , .DJulia 06/13 Warfarin Sodium 10/26 Hx Tablets 2.5mg 45tab 1 tab by 453.40 s mouth every , - other day M.DJulia 08/30 Fish Oil Hx Capsules 300mg 1 by mouth Unknown /0000 every day - 01/23 Multivitamins Hx Capsules 1 by mouth Unknown /0000 every day - 01/23 Calcium Hx Tablets 600mg 1 by mouth Unknown /0000 every day - 06/13 Multivitamin Adult 00 Hx Tablets 1 by mouth Unknown /0000 every day - 06/13 Biotin Hx Tablets 5000mcg 1 po qd Unknown / - 06/25 Florastor Hx Capsules 250mg 1 po qd Unknown / - 06/25 Triamcinolone Hx Cream 0.1% apply to Unknown Acetonide / affected - skin twice 01/23 /2017 Medications Administered in Office Medication Date Status Form Strength Qnty SIG Indications Ordering Provider Injection Injection Unknown Subcutaneous Or 2018 Intramuscular Immunizations CPT Code Status Date Vaccine Lot # [id number] Given 10/23/2017 Tdap Tetanus, W Pertussis Vital Signs Date Vital Result Comment 01/23/2018 BP Systolic 124 mmHg BP Diastolic 80 mmHg Heart Rate 68 /min Body Temperature 97.2 F Respiratory Rate 15 /min Height 62 inches 5'2" Weight 122.00 lb BMI (Body Mass Index) 22.3 kg/m2 09/17/2017 BP Systolic 120 mmHg BP Diastolic 74 mmHg Heart Rate 80 /min Body Temperature 98.0 F Respiratory Rate 18 /min Height 62 inches 5'2" Weight 124.50 lb BMI (Body Mass Index) 22.8 kg/m2 06/26/2017 BP Systolic 150 mmHg BP Diastolic 72 mmHg Heart Rate 60 /min Body Temperature 97.9 F Respiratory Rate 16 /min Height 62 inches 5'2" Weight 125.00 lb BMI (Body Mass Index) 22.9 kg/m2 06/13/2016 BP Systolic 152 mmHg BP Diastolic 80 mmHg Heart Rate 60 /min Body Temperature 98.1 F Respiratory Rate 16 /min Height 62 inches 5'2" Weight 124.12 lb BMI (Body Mass Index) 22.7 kg/m2 08/31/2015 BP Systolic 140 mmHg BP Diastolic 80 mmHg Heart Rate 64 /min Body Temperature 98.6 F Respiratory Rate 16 /min Height 62 inches 5'2" Weight 127.38 lb BMI (Body Mass Index) 23.3 kg/m2 10/26/2014 BP Systolic 160 mmHg BP Diastolic 90 mmHg Heart Rate 68 /min Body Temperature 98.1 F Respiratory Rate 16 /min Height 62 inches 5'2" Weight 113.00 lb BMI (Body Mass Index) 20.7 kg/m2 Results Test Date Test Result H/L Range Note Comprehensive Metabolic Prof 06/18/2017 Sodium 134 mEq/L 134-149 Potassium 3.7 mEq/L 3.6-5.5 Chloride 94 mEq/L 94-112 Carbon Dioxide 28 mEq/L 21-32 Glucose 106 mg/dL High 70-105 1 BUN 19 mg/dL 6-26 Creatinine 0.7 mg/dL 0.6-1.4 BUN/Creat Ratio 27.1 CALC 8.0-36.0 Calcium 10.0 mg/dL 8.6-10.2 Total Protein 6.8 g/dL 6.4-8.3 Albumin 4.3 g/dL 3.8-5.5 Globulin 2.5 g/dL 2.0-4.8 A/G Ratio 1.7 CALC 0.6-2.3 Alk. Phosphatase 83 U/L 30-110 Alt (SGPT) 16 U/L 7-35 Ast (Sgot) 19 U/L 5-34 Total Bilirubin 1.0 mg/dL 0.2-1.3 GFR Non- >60 ml/min/1.73m^ >=60 GFR >60 ml/min/1.73m^ >=60 Complete Blood Count 06/18/2017 WBC 19.2 x10^3/UL High 3.6-9.6 2 RBC 4.69 x10^6/UL 3.90-5.70 HGB 12.4 g/dL 12.1-17.2 HCT 38 % 36-50 MCV 81.0 fL Low 82.2-97.4 MCH 26.4 pg Low 27.6-33.3 MCHC 32.5 g/dL Low 33.0-35.5 RDW 16.0 % High 11.6-13.7 PLT 252 x10^3/UL 150-400 MPV 6.6 fL Low 7.4-10.4 Gran # 4.4 x10^3/UL 1.5-7.2 Lymph# 14.1 x10^3/UL High 0.7-4.9 [place]# 0.7 x10^3/UL 0.1-0.9 Gran % 22.4 % Low 42.2-75.2 Lymph % 73.7 % High 20.5-51.1 [place]% 3.9 % 1.7-9.3 Lipid Profile 06/18/2017 Cholesterol 211 mg/dL High 120-200 Triglycerides 83 mg/dL 30-200 HDL Cholesterol 66 mg/dL 30-85 LDL (Calculated) 128 CALC 0-129 VLDL Cholesterol 17 mg/dL 0-50 HDL Risk Factor 3.2 CALC 0.0-4.4 CBC Auto Diff 04/09/2017 White Blood Count 19.4 10^3/uL High 3.5-10.8 Red Blood Count 4.70 10^6/uL 4.0-5.4 Hemoglobin 12.1 g/dL 12.0-16.0 Hematocrit 38 % 35-47 Mean Corpuscular Volume 80 fL 80-97 Mean Corpuscular Hemoglobin 26 pg Low 27-31 Mean Corpuscular HGB Conc 32 g/dL 31-36 Red Cell Distribution Width 18 % High 10.5-15 Platelet Count 219 10^3/uL 150-450 Mean Platelet Volume 7 um3 Low 7.4-10.4 Abs Neutrophils 4.2 10^3/uL 1.5-7.7 Abs Lymphocytes 14.5 10^3/uL High 1.0-4.8 Abs Monocytes 0.5 10^3/uL 0-0.8 Abs Eosinophils 0.1 10^3/uL 0-0.6 Abs Basophils 0.1 10^3/uL 0-0.2 Abs Nucleated RBC 0.01 10^3/uL Granulocyte % 21.9 % Low 38-83 Lymphocyte % 74.8 % High 25-47 Monocyte % 2.4 % 1-9 Eosinophil % 0.3 % 0-6 Basophil % 0.6 % 0-2 Nucleated Red Blood Cells % 0.1 Comp Metabolic Panel 04/09/2017 Sodium 135 mmol/L 133-145 Potassium 3.8 mmol/L 3.5-5.0 Chloride 97 mmol/L Low 101-111 Co2 Carbon Dioxide 33 mmol/L High 22-32 Anion Gap 5 mmol/L 2-11 Glucose 107 mg/dL High 70-100 Blood Urea Nitrogen 24 mg/dL 6-24 Creatinine 0.71 mg/dL 0.51-0.95 BUN/Creatinine Ratio 33.8 High 8-20 Calcium 10.0 mg/dL 8.6-10.3 Total Protein 7.3 g/dL 6.4-8.9 Albumin 4.1 g/dL 3.2-5.2 Globulin 3.2 g/dL 2-4 Albumin/Globulin Ratio 1.3 1-3 Total Bilirubin 0.60 mg/dL 0.2-1.0 Alkaline Phosphatase 84 U/L 34-104 Alt 15 U/L 7-52 Ast 18 U/L 13-39 Egfr Non- 78.2 >60 Egfr 100.6 >60 3 Urinalysis Profile 07/29/2016 Urine Color Yellow Urine Appearance Clear Urine Specific [place] 1.015 1.010-1.030 Urine pH 6.0 5-9 Urine Urobilinogen Negative Negative Urine Ketones Negative Negative Urine Protein Negative Negative Urine Leukocytes Trace Negative Urine Blood 1+ Negative * * Negative 4 Urine Nitrite Negative Negative Urine Bilirubin Negative Negative Urine Glucose Negative Negative Urine White Blood Cell Trace(0-5/hpf) Absent Urine Red Blood Cell Trace(0-2/hpf) Absent Urine Bacteria Absent Absent Urine Squamous Epithelial Cell Present Absent Laboratory test 07/29/2016 Urine Culture And SEE RESULT BELOW 5 finding Sensitivities Laboratory test 07/05/2016 Urine Culture And SEE RESULT BELOW 6, 7 finding Sensitivities Urinalysis Profile 07/05/2016 Urine Color Ana 6 Urine Appearance Cloudy 6 Urine Specific [place] 1.021 1.010-1.030 6 Urine pH 5.0 5-9 6 Urine Urobilinogen Negative Negative 6 Urine Ketones Trace Negative 6 Urine Protein Negative Negative 6 Urine Leukocytes 3+ Negative 6 Urine Blood Negative Negative 6 * * Negative 6, 8 Urine Nitrite Negative Negative 6 Urine Bilirubin Negative Negative 6 Urine Glucose Negative Negative 6 Urine White Blood Cell 1+(6-10/hpf) Absent 6 Urine Red Blood Cell Absent Absent 6 Urine Bacteria Absent Absent 6 Urine Squamous Epithelial Cell Present Absent 6 Urine Hyaline Casts Present Absent 6 CBC No Diff 07/05/2016 White Blood Count 19.6 10^3/uL High 3.5-10.8 6 Red Blood Count 4.79 10^6/uL 4.0-5.4 6 Hemoglobin 12.3 g/dL 12.0-16.0 6 Hematocrit 38 % 35-47 6 Mean Corpuscular Volume 80 fL 80-97 6 Mean Corpuscular Hemoglobin 26 pg Low 27-31 6 Mean Corpuscular HGB Conc 32 g/dL 31-36 6 Red Cell Distribution Width 17 % High 10.5-15 6 Platelet Count 218 10^3/uL 150-450 6 Mean Platelet Volume 8 um3 7.4-10.4 6 Comp Metabolic Panel 07/05/2016 Sodium 138 mmol/L 133-145 6 Potassium 4.0 mmol/L 3.5-5.0 6 Chloride 98 mmol/L Low 101-111 6 Co2 Carbon Dioxide 32 mmol/L 22-32 6 Anion Gap 8 mmol/L 2-11 6 Glucose 86 mg/dL 70-100 6 Blood Urea Nitrogen 25 mg/dL High 6-24 6 Creatinine 0.86 mg/dL 0.51-0.95 6 BUN/Creatinine Ratio 29.1 High 8-20 6 Calcium 10.2 mg/dL 8.6-10.3 6 Total Protein 7.1 g/dL 6.4-8.9 6 Albumin 4.2 g/dL 3.2-5.2 6 Globulin 2.9 g/dL 2-4 6 Albumin/Globulin Ratio 1.4 1-3 6 Total Bilirubin 0.70 mg/dL 0.2-1.0 6 Alkaline Phosphatase 96 U/L 34-104 6 Alt 14 U/L 7-52 6 Ast 18 U/L 13-39 6 Egfr Non- 62.7 >60 6 Egfr 80.7 >60 6, 9 Laboratory test finding 07/05/2016 Partial Thrombo Time 30.7 seconds 26.0 -36.3 6, 10 PTT Inr/Protime 07/05/2016 Inr 0.94 0.89-1.11 6 Type & Screen 07/05/2016 Patient Blood Type A Negative 6 Antibody Screen NEGATIVE 6 CBC Auto Diff 03/07/2016 White Blood Count 20.4 10^3/uL High 3.5-10.8 Red Blood Count 4.66 10^6/uL 4.0-5.4 Hemoglobin 11.9 g/dL Low 12.0-16.0 Hematocrit 37 % 35-47 Mean Corpuscular Volume 80 fL 80-97 Mean Corpuscular Hemoglobin 26 pg Low 27-31 Mean Corpuscular HGB Conc 32 g/dL 31-36 Red Cell Distribution Width 17 % High 10.5-15 Platelet Count 228 10^3/uL 150-450 Mean Platelet Volume 7 um3 Low 7.4-10.4 Abs Neutrophils 5.5 10^3/uL 1.5-7.7 Abs Lymphocytes 14.1 10^3/uL High 1.0-4.8 Abs Monocytes 0.6 10^3/uL 0-0.8 Abs Eosinophils 0.1 10^3/uL 0-0.6 Abs Basophils 0.1 10^3/uL 0-0.2 Abs Nucleated RBC 0.03 10^3/uL Granulocyte % 26.9 % Low 38-83 Lymphocyte % 69.2 % High 25-47 Monocyte % 2.9 % 1-9 Eosinophil % 0.4 % 0-6 Basophil % 0.6 % 0-2 Nucleated Red Blood Cells % 0.2 Laboratory test finding 01/28/2016 Erythrocyte Sed Rate 27 mm/Hr 0-40 CBC Auto Diff 01/28/2016 White Blood Count 22.6 10^3/uL High 3.5-10.8 Red Blood Count 4.60 10^6/uL 4.0-5.4 Hemoglobin 11.6 g/dL Low 12.0-16.0 Hematocrit 36 % 35-47 Mean Corpuscular Volume 79 fL Low 80-97 Mean Corpuscular Hemoglobin 25 pg Low 27-31 Mean Corpuscular HGB Conc 32 g/dL 31-36 Red Cell Distribution Width 17 % High 10.5-15 Platelet Count 252 10^3/uL 150-450 Mean Platelet Volume 8 um3 7.4-10.4 Abs Neutrophils 5.6 10^3/uL 1.5-7.7 Abs Lymphocytes 16.2 10^3/uL High 1.0-4.8 Abs Monocytes 0.6 10^3/uL 0-0.8 Abs Eosinophils 0.1 10^3/uL 0-0.6 Abs Basophils 0.1 10^3/uL 0-0.2 Abs Nucleated RBC 0.05 10^3/uL Granulocyte % 24.7 % Low 38-83 Lymphocyte % 71.7 % High 25-47 Monocyte % 2.6 % 1-9 Eosinophil % 0.6 % 0-6 Basophil % 0.4 % 0-2 Nucleated Red Blood Cells % 0.2 Laboratory test finding 01/28/2016 C Reactive Protein 11.38 mg/L High < 5.00 11 Ua - Micro (a) 09/28/2015 Appearance CLEAR Color YELLOW Glucose, Urine (Fma/CMC/CTX) NEG Bilirubin NEG Ketones NEG SP Grav 1.010 Blood TRACE-LYSED PH 5.5 Protein NEG Urobil 0.2 Nitrite NEG Leukocytes (Fma/CMC/Centrex) SMALL Hyaline - /Lpf Granular - /Lpf WBC (a,Centrex) 2-3 RBC 0-1 Mucus - /Lpf Epith OCC /Lpf Bacteria TRACE /Hpf Amorphous - /Lpf Crystals, Fluid (Fma/CMC/CTX) - Z#Comments - Urine Culture Routine 09/02/2015 Urine Culture, Routine Final report 12 , 13 Result 1 See Comment: 12, 14 Antimicrobial Susceptibility See Comment: 12, 15 Ua - Micro (a) 09/02/2015 Appearance CLOUDY Color YELLOW Glucose, Urine (Fma/CMC/CTX) NEG Bilirubin NEG Ketones NEG SP Grav 1.015 Blood TRACE-INTACT PH 5.5 Protein NEG Urobil 0.2 Nitrite POS Leukocytes (Fma/CMC/Centrex) SMALL WBC (Fma,Centrex) 10-12 RBC 0-1 Epith OCC /Lpf Bacteria 3+ /Hpf CBC Manual Diff-a 08/08/2015 WBC 19.7 High 3.6-9.6 RBC 4.29 3.90-5.70 Hemoglobin (Fma/CMC/CTX) 12.2 g/dL 12.1 - 17.2 Hematocrit (Fma/CMC/CTX) 36.4 % 36.1 - 50.3 Mean Corpuscular Vol 85 82.2-97.4 Mean Corpuscular Hemoglobin 28.5 27.6-33.3 Mean Corpuscular Hemo Concen 33.6 32.0-36.0 Platelets 293 10^3/ul 150-400 RDW 14.9 High 11.6-13.7 Mean Platelet Volume 7.0 5.5-11.0 Neutrophil 21 Band 4 Lymphocytes 72 Monocyte 3 Anisocytosis (Fma/CMC/Centrex) slight Poikilocytosis slight Z#Comment see comment 16 Comprehensive Metabolic Prof 08/08/2015 Sodium 141 mEq/L 134-149 Potassium 3.9 mEq/L 3.6-5.5 Chloride 101 mEq/L 94-112 Carbon Dioxide 28 mEq/L 21-32 Glucose 106 mg/dL High 70-105 17 BUN 24 mg/dL 6-26 Creatinine 0.9 mg/dL 0.6-1.4 BUN/Creat Ratio 26.7 CALC 8.0-36.0 Calcium 9.7 mg/dL 8.6-10.2 Total Protein 7.2 g/dL 6.4-8.3 Albumin 4.4 g/dL 3.8-5.5 Globulin 2.8 g/dL 2.0-4.8 A/G Ratio 1.6 CALC 0.6-2.3 Alk. Phosphatase 70 U/L 30-110 Alt (SGPT) 17 U/L 7-35 Ast (Sgot) 24 U/L 5-34 Total Bilirubin 0.6 mg/dL 0.2-1.3 GFR Non- >60 ml/min/1.73m^ >=60 GFR >60 ml/min/1.73m^ >=60 Lipid Profile 08/08/2015 Cholesterol 212 mg/dL High 120-200 Triglycerides 91 mg/dL 30-200 HDL Cholesterol 50 mg/dL 30-85 LDL (Calculated) 144 CALC High 0-129 VLDL Cholesterol 18 mg/dL 0-50 HDL Risk Factor 4.2 CALC 0.0-4.4 Complete Blood Count 08/08/2015 WBC 19.7 x10^3/UL High 3.6-9.6 18 RBC 4.29 x10^6/UL 3.90-5.70 HGB 12.2 g/dL 12.1-17.2 HCT 36 % 36-50 MCV 85.0 fL 82.2-97.4 MCH 28.5 pg 27.6-33.3 MCHC 33.6 g/dL 33.0-35.5 RDW 14.9 % High 11.6-13.7 PLT 293 x10^3/UL 150-400 MPV 7.0 fL Low 7.4-10.4 Gran # 4.2 x10^3/UL 1.5-7.2 Lymph# 14.8 x10^3/UL High 0.7-4.9 [place]# 0.7 x10^3/UL 0.1-0.9 Gran % 21.1 % Low 42.2-75.2 Lymph % 75.2 % High 20.5-51.1 [place]% 3.7 % 1.7-9.3 Ua - Micro (Fma) 08/08/2015 Appearance clear Color yellow Glucose, Urine (Fma/CMC/CTX) neg Bilirubin neg Ketones neg SP Grav 1.020 Blood moderate PH 5.5 Protein ssa trace Urobil 0.2 Nitrite neg Leukocytes (Fma/CMC/Centrex) large Hyaline - /Lpf Granular - /Lpf WBC (Fma,Centrex) >100 RBC 3-5 Mucus (Fma/CBC/Centrex) - /Lpf Epith few /Lpf Bacteria 1+ /Hpf Amorphous (Fma/CMC/Centrex) - /Lpf Crystals, Fluid (Fma/CMC/CTX) - Z#Comments - 1 RESULTS VERIFIED BY REPEAT ANALYSIS 2 RESULTS VERIFIED BY REPEAT ANALYSIS 3 Because ethnic data is not always readily available, this report includes an eGFR for both -Americans and non- Americans. The National Kidney Disease Education Program (NKDEP) does not endorse the use of the MDRD equation for patients that are not between the ages of 18 and 70, are , have extremes of body size, muscle mass, or nutritional status, or are non- or non-. According to the National Kidney Foundation, irrespective of diagnosis, the stage of the disease is based on the level of kidney function: Stage Description GFR(mL/min/1.73 m(2)) 1 Kidney damage with normal or decreased GFR 90 2 Kidney damage with mild decrease in GFR 60-89 3 Moderate decrease in GFR 30-59 4 Severe decrease in GFR 15-29 5 Kidney failure <15 (or dialysis) 4 *Ascorbic acid is present which may interfere with detection of blood. 5 SEE RESULT BELOW Name: MEENA LEE Niya : [address]: Cindy Matamoros MD Acct: [id number] Unit: [id number] AGE: 86 Location: [facility] Re07/29/16 SEX: F Status: REG REF SPEC: [id number] LORIE: 07/29/16-1115 [facility] DR: Cindy Matamoros MD REQ: [id number] RECD: 07/29/16-134 STATUS: BETHANY KAM DR: Alka Bartlett MD Visiting Nurse Service _ SOURCE: URINE SPDESC: ORDERED: Urine Culture Procedure Result Reported Site Urine Culture Final 07/31/16- 1046 ML No growth of clinically significant organisms * ML - MAIN LAB (PSC1) . END OF REPORT * ML=Testing performed at Main Lab DEPARTMENT OF PATHOLOGY, [address] [place] [address] Luís Smith M.D. Director [facility] # [id number] 07/10 7 SEE RESULT BELOW Name: MEENA LEE : [address]: Alka Bartlett MD Acct: [id number] Unit: [id number] AGE: 86 Location: PAT Re07/05/16 SEX: F Status: REG REF SPEC: [id number] LORIE: 07/05/1657 [facility] DR: Alka Bartlett MD REQ: [id number] RECD: 07/05/16 STATUS: BETHANY KAM DR: Cindy Matamoros MD _ SOURCE: URINE SPDESC: ORDERED: Urine Culture COMMENTS: AA 07/10 QUERIES: Urine Source: Clean Catch Procedure Result Reported Site Urine Culture Final 07/06/16- 1327 ML No growth of clinically significant organisms * ML - MAIN LAB (PSC1) . END OF REPORT * ML=Testing performed at Main Lab DEPARTMENT OF PATHOLOGY, [address] [place] [address] Luís Smith M.D. Director [facility] # [id number] *Ascorbic acid is present which may interfere with detection of blood. 9 Because ethnic data is not always readily available, this report includes an eGFR for both -Americans and non- Americans. The National Kidney Disease Education Program (NKDEP) does not endorse the use of the MDRD equation for patients that are not between the ages of 18 and 70, are , have extremes of body size, muscle mass, or nutritional status, or are non- or non-. According to the National Kidney Foundation, irrespective of diagnosis, the stage of the disease is based on the level of kidney function: Stage Description GFR(mL/min/1.73 m(2)) 1 Kidney damage with normal or decreased GFR 90 2 Kidney damage with mild decrease in GFR 60-89 3 Moderate decrease in GFR 30-59 4 Severe decrease in GFR 15-29 5 Kidney failure <15 (or dialysis) 10 AA 07/10 11 Acute inflammation: >10.00 12 SRC:urine 1 kemp top 13 Source of Specimen: urine 1 kemp top 14 Source of Specimen: urine 1 kemp top Escherichia coli, identified by an automated biochemical system. Greater than 100,000 colony forming units per mL 15 Source of Specimen: urine 1 kemp top S=Susceptible; I=Intermediate; R=Resistant P=Positive; N=Negative MICS are expressed in micrograms per mL Antibiotic RSLT#1 RSLT#2 RSLT#3 RSLT#4 Amoxicillin/Clavulanic Acid S Ampicillin S Cefepime S Ceftriaxone S Cefuroxime S Cephalothin S Ciprofloxacin S Ertapenem S Gentamicin S Imipenem S Levofloxacin S Nitrofurantoin S Piperacillin S Tetracycline S Tobramycin S Trimethoprim/Sulfa S 16 few acanthocytes many smudge cells platelets appear normal on smear. 17 RESULTS VERIFIED BY REPEAT ANALYSIS 18 RESULTS VERIFIED BY REPEAT ANALYSIS Procedures Date CPT Code Description Status Comment 07/08/2018 Mammogram Completed 11/15/2017 Mammogram Completed 10/23/2017 58556 Injection Subcutaneous Or Completed Intramuscular 09/17/2017 08816 Anoscopy Diagnostic Completed 07/08/2017 Mammogram Completed 06/13/2016 19230 Electrocardiogram Complete Completed 10/20/2015 Mammogram Completed 06/10/[address] Fam; NL no longer needs Encounters Type Date Location Provider CPT E/M Dx Office Visit 09/17/2017 11:00a [facility] Rocco Gan, [address] R58 Noelle Office Visit 06/13/2016 10:30a [facility] Cindy Matamoros M.D. 85349 Z01.818 M25.551 C91.91 I10 Z86.718 Office Visit 10/26/2014 8:00a [facility] Office Cindy Matamoros M.D. 89404 401.1 204.91 733.00 453.40 Plan of Care 01/23/2018 - Rocco Rios MDZ02.89 Encounter for other administrative examinationsAllComments:~B_~U_Medication Management~b_~u_ Patient Understands medications she's taking? Yes No Are there Barriers to Adherence? Yes No Has the patient been asked about herbal supplements and therapies, and OTC meds? Yes No
[2018-01-25 08:28] VITALS: BP 142/68
--- NOTE | 2018-01-25 09:02 | UC ---
Complaint Female HPI - HPI Summary HPI Summary: Pt presents with c/o sudden onset of urinary symtoms of frequency, urgency and dysuria X 2 days. Pt states "I think I have a UTI" - History Of Current Complaint Chief Complaint: UCGU Stated Complaint: URINARY ISSUE Time Seen by Provider: 01/25/18 08:34 Hx Obtained From: Patient ?: No Onset/Duration: Sudden Onset, Lasting Days Timing: Constant Severity Initially: Mild Severity Currently: Mild Pain Intensity: 6 Character: Dull, Burning Aggravating Factor(s): Urination Alleviating Factor(s): Nothing Associated Signs And Symptoms: Positive: Negative - Risk Factors Ectopic Risk Factor: Negative - Allergies/Home Medications Allergies/Adverse Reactions: Allergies Allergy/AdvReac Type Severity Reaction Status Date / Time latex Allergy Hives Verified 01/25/18 08:24 Penicillins Allergy Hives Verified 01/25/18 08:25 PMH/Surg Hx/FS Hx/Imm Hx Previously Healthy: Yes - Surgical History Surgical History: Yes Surgery Procedure, Year, and Place: TONSILLECTOMY AND ADENOIDECTOMY A YOUNG CHILD. 2007 BILATERAL CATARACT EXTRACTION WITH IOL IMPLANT, [facility] [place]. 2009 RECONSTRUCTION MOHS SURGICAL DEFECT RIGHT NASAL ALA WITH LOCAL FLAP, [facility] [place]. 2014 RIGHT TOTAL HIP REPLACEMENT, [facility] [place]. 07/07/2014 REVISION RIGHT HIP FEMORAL COMPONENT, [facility] [place] - Family History Known Family History: Positive: Cardiac Disease - Social History Occupation: Retired Lives: With Family Alcohol Use: Occasionally Alcohol Amount: 1 GLASS OF WINE Substance Use Type: None Smoking Status (MU): Former Smoker Type: Cigarettes Amount Used/How Often: 1/2 ppd Length of Time of Smoking/Using Tobacco: 20 years Have You Smoked in the Last Year: No When Did the Patient Quit Smoking/Using Tobacco: 40 years ago - Immunization History Most Recent Influenza Vaccination: 02/2016 Most Recent Tetanus Shot: 2007 Most Recent Pneumonia Vaccination: 2014 Review of Systems Constitutional: Negative Skin: Negative Eyes: Negative ENT: Negative Respiratory: Negative Cardiovascular: Negative Gastrointestinal: Negative Genitourinary: Dysuria, Frequency, Urgency Motor: Negative Neurovascular: Negative Musculoskeletal: Negative Neurological: Negative Psychological: Negative Is Patient Immunocompromised?: No All Other Systems Reviewed And Are Negative: Yes Physical Exam Triage Information Reviewed: Yes Appearance: Well-Appearing Vital Signs: Initial Vital Signs Temp 97.8 F 01/25/18 08:26 Pulse 67 01/25/18 08:26 Resp 16 01/25/18 08:26 BP 142/68 01/25/18 08:26 Pulse Ox 100 01/25/18 08:26 Eye Exam: Normal ENT: Positive: Hearing grossly normal Neck exam: Normal Respiratory Exam: Normal Cardiovascular Exam: Normal Abdominal Exam: Normal Musculoskeletal Exam: Normal Neurological Exam: Normal Psychological Exam: Normal Skin Exam: Normal Complaint Female Dx - Differential Dx/Diagnosis Differential Diagnosis/HQI/PQRI: Urinary Tract Infection Provider Diagnoses: uti Discharge - Sign-Out/Discharge Documenting (check all that apply): Patient Departure - Discharge Plan Condition: Stable Disposition: HOME Prescriptions: Nitrofurantoin Monohyd/M-Cryst [Macrobid 100 mg Capsule] 100 mg PO Q12H #14 cap Phenazopyridine TAB* [Pyridium 100 mg TAB*] 100 mg PO Q8H #3 tab Patient Education Materials: Urinary Tract Infection in Women (ED) Referrals: Rocco Rios MD [Primary Care Provider] - If Needed - Billing Disposition and Condition Condition: STABLE Disposition: Home Attestation Statement User Type: Provider - I was available for consult. This patient was seen by the BHAVNA. The patient was not presented to, seen by, or examined by me. -Saroj
[2018-01-25] MEDS ORDERED: Nitrofurantoin Macrocrystals* 50 MG CAP PO ONE (09:05)
[2018-01-25] MEDS ORDERED: Phenazopyridine TAB* 100 MG PO ONE (09:06)
== END 2018-01-25 09:18 | disposition home or self-care (01) ==
LOC: UCEAST 08:18
DX: N39.0 Urinary tract infection, site not specified (principal); Z88.0 Allergy status to penicillin; Z91.040 Latex allergy status
CPT/HCPCS: 81003; 87077; 87086; 87186; 99212; A9270-GY; G0463

== ENCOUNTER 2018-09-16 12:16 | Inpatient (IN) | payer MEDICARE, OTHER ==
--- NOTE | 2018-09-08 14:04 | HP ---
HISTORY AND PHYSICAL: DATE OF SURGERY: 09/16/18 DATE OF OFFICE VISIT: 09/08/18 SURGEON: Alka Bartlett MD* (dictated by GRZEGORZ Rodriguez) PROCEDURE: Left total hip arthroplasty. CHIEF COMPLAINT: Left hip pain. HISTORY OF PRESENT ILLNESS: Ms. Lee is an 88-year-old female with endstage osteoarthritis of the left hip. She has failed conservative treatment and elected to proceed with left total hip arthroplasty. PAST MEDICAL HISTORY: 1. Hypertension. 2. CLL. PAST SURGICAL HISTORY: 1. Right total hip arthroplasty. 2. ORIF of the right hip x2. 3. Tonsillectomy. 4. Adenoidectomy. CURRENT MEDICATIONS: 1. Hydrochlorothiazide 25 mg a day. 2. PreserVision AREDS two tabs once a day. 3. Multivitamin. 4. [employer]. ALLERGIES: PENICILLIN. FAMILY HISTORY: Stroke and cancer. SOCIAL HISTORY: She is an 88-year-old female. She lives with her . She does not smoke, use drugs, or alcohol. REVIEW OF SYSTEMS: A complete 14-point review of systems was reviewed with the patient, is all negative and noncontributory. She denies history of DVT, PE, hepatitis, HIV or anesthesia problems. PHYSICAL EXAMINATION GENERAL: She is well developed, well nourished, in no acute distress. VITAL SIGNS: She stands 5 feet 2 inches tall, weighs 120 pounds. Her blood pressure is 164/84, heart rate 64. HEENT: Normocephalic, atraumatic. NECK: Supple, no palpable lymph nodes. PULMONARY: The lungs are clear to auscultation bilaterally. CARDIAC: Regular rate and rhythm. Strong S1, S2. ABDOMEN: Soft, nontender, nondistended. NEUROLOGICAL: She is alert and oriented x3. MUSCULOSKELETAL: Left lower extremity, the skin is intact. There are no open wounds or abrasions. She walks in a antalgic-type gait favoring her left hip. She has decreased internal and external rotation of the left hip. She has a 2+ dorsalis pedis pulse. She is able to dorsi flex and plantar flex and has intact sensation. ASSESSMENT AND PLAN: Ms. Lee is an 88-year-old female with endstage osteoarthritis of the left hip. She has failed conservative treatment of the left hip and elected to proceed with a left total hip arthroplasty. Surgery is scheduled for 09/16/[address] Bartlett discussed the risks and benefits of the surgery at today's visit and all of her questions were answered. She will follow up with Dr. Bartlett in 2 weeks after the surgery. GRZEGORZ RODRIGUEZ [id number]/[facility] #: [id number] ALFREDITO
[~2018-09-16 12:16] MED LIST changes: -Buffered Lidocaine 1% SYR 3ML* 3 ML/SYR SYRINGE INTRADERM ONE; +Buffered Lidocaine 1% SYRIN* 1 ML/SYRINGE INTRADERM ONE; -Dexamethasone IV* 4 MG/ML 1 ML (4 MG) IV SLOW PU ONE; -Famotidine IV* 10 MG/ML 2 ML (20 mg) IV ONE; +Lactated Ringers 1000 ML Bag* 1,000 ML IV SCH
--- OUTSIDE RECORDS SUMMARY | 2018-09-16 12:21 | XMS REPORT | Continuity of Care Document ---
:1930 External Reference #:[id number] Author Name Rocco Rios MD Address [address] [place] [address] Care Team Providers Name Role Phone Rocco Rios MD Care Team Information Aquatics Assistant Department Head Unavailable Rocco Rios MD Primary Care Physician Unavailable Payers Date Identification Numbers Payment Provider Subscriber Effective: 1996 Policy Number: [id number] [place] PayID: [id number] [address] [place] [address] Effective: 2017 Policy Number: [id number] [facility] [place] Lee PayID: [id number] [address] [place] [address] Advance Directives Description No Information Available Problems Date Description Provider Status Onset: 10/26/2014 Chronic lymphoid leukemia, disease Cindy Matamoros M.D. Active Onset: 10/26/2014 Benign essential hypertension Cindy Matamoros M.D. Active Onset: 10/26/2014 Lymphoid leukemia in remission Cindy Matamoros M.D. Active Onset: 10/26/2014 Osteoporosis Cindy Matamoros M.D. Active Onset: 08/31/2015 H/O: Deep vein thrombosis Cindy Matamoros M.D. 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 Tobacco Use Start: Unknown End: Former Cigarette Smoker quit 40 years ago, Unknown 1/2 ppd x 20 years ETOH Use Rare Tobacco Use Start: Unknown End: Patient is a former Unknown smoker Smoking Status Reviewed: 08/18/18 Patient is a former smoker Exercise Exercises sporadically Type/Frequency Allergies, Adverse Reactions, Alerts Date Description Reaction Status Severity Comments 10/26/2014 Penicillin slight rash Active Medications Medication Date Status Form Strength Qnty SIG Indications Ordering Provider Tussionex 03/03 Active Suer 10-8mg/5M 115ml 5ml twice a R05 Rocco Terese Pen day as Shayna Extended Release malathi aaron MD cough Preservision Areds Active Capsules 1 by mouth Unknown / bid Estrace Active Cream 0.1mg/GM 06/11 Unknown applicatorf ul vaginally nightly 2x a week Hydrochlorothiazid Active Tablets 25mg 90tab 1 by mouth Cindy e s every day Noelle Matamoros Ciprofloxacin HCL 07/21 Hx Tablets 250mg 6tabs 1 tab twice Rocco Terese a day x 3 Shayna aaron MD 08/17 Anusol-HC 09/17 Hx Cream 2.5% 30uni apply twice Rocco Lenny a day Camron Gan M.D. 01/23 Ciprofloxacin HCL 09/05 Hx Tablets 250mg 6tabs 1 tab twice a day x 3 Saturnino - bettye M.DJulia 06/13 Warfarin Sodium 10/26 Hx Tablets 2.5mg 45tab 1 tab by 453.40 s mouth every , - other day M.D. 08/30 Fish Oil Hx Capsules 300mg 1 by mouth Unknown / every day - 01/23 Multivitamins Hx Capsules 1 by mouth Unknown / every day - 01/23 Calcium Hx Tablets 600mg 1 by mouth Unknown /0000 every day - 06/13 Multivitamin Adult 00 Hx Tablets 1 by mouth Unknown / every day - 06/13 Biotin Hx Tablets 5000mcg 1 po qd Unknown - 06/25 Florastor Hx Capsules 250mg 1 po qd - 06/25 Triamcinolone Hx Cream 0.1% apply to Unknown Acet affected - skin twice 01/23 a day /2018 Medications Administered in Office Medication Date Status Form Strength Qnty SIG Indications Ordering Provider Injection 10/23/ Administered Injection Unknown Subcutaneous Or 2018 Intramuscular Immunizations CPT Code Status Date Vaccine Lot # [id number] Given 10/23/2017 Tdap Tetanus, W Pertussis Vital Signs Date Vital Result Comment 08/18/2018 8:27am BP Systolic 166 mmHg BP Diastolic 78 mmHg Heart Rate 84 /min Body Temperature 97.7 F Height 62 inches 5'2" Weight 118.00 lb pt stated BMI (Body Mass Index) 21.6 kg/m2 03/03/2018 8:30am BP Systolic 142 mmHg BP Diastolic 70 mmHg Heart Rate 64 /min Body Temperature 97.8 F Respiratory Rate 16 /min Height 62 inches 5'2" Weight 122.00 lb BMI (Body Mass Index) 22.3 kg/m2 01/23/2018 2:53pm BP Systolic 124 mmHg BP Diastolic 80 mmHg Heart Rate 68 /min Body Temperature 97.2 F Respiratory Rate 15 /min Height 62 inches 5'2" Weight 122.00 lb BMI (Body Mass Index) 22.3 kg/m2 09/17/2017 10:39am BP Systolic 120 mmHg BP Diastolic 74 mmHg Heart Rate 80 /min Body Temperature 98.0 F Respiratory Rate 18 /min Height 62 inches 5'2" Weight 124.50 lb BMI (Body Mass Index) 22.8 kg/m2 06/26/2017 12:55pm BP Systolic 150 mmHg BP Diastolic 72 mmHg Heart Rate 60 /min Body Temperature 97.9 F Respiratory Rate 16 /min Height 62 inches 5'2" Weight 125.00 lb BMI (Body Mass Index) 22.9 kg/m2 06/13/2016 10:27am BP Systolic 152 mmHg BP Diastolic 80 mmHg Heart Rate 60 /min Body Temperature 98.1 F Respiratory Rate 16 /min Height 62 inches 5'2" Weight 124.12 lb BMI (Body Mass Index) 22.7 kg/m2 08/31/2015 12:53pm BP Systolic 140 mmHg BP Diastolic 80 mmHg Heart Rate 64 /min Body Temperature 98.6 F Respiratory Rate 16 /min Height 62 inches 5'2" Weight 127.38 lb BMI (Body Mass Index) 23.3 kg/m2 10/26/2014 8:14am BP Systolic 160 mmHg BP Diastolic 90 mmHg Heart Rate 68 /min Body Temperature 98.1 F Respiratory Rate 16 /min Height 62 inches 5'2" Weight 113.00 lb BMI (Body Mass Index) 20.7 kg/m2 Results Test Date Facility Test Result H/L Range Note Ua - Micro (Fma) 07/21/2018 [facility] Appearance cloudy (607)- - Color yellow Glucose, Urine (Fma/CMC/CTX) - Bilirubin - Ketones - SP Grav 1.020 Blood trace (lysed) # PH 6.0 Protein - Urobil 0.2 Nitrite - Leukocytes (a/CMC/Centrex) large # Hyaline - /Lpf Granular - /Lpf WBC (Fma,Centrex) 15-20 # RBC 0-1 Mucus (Fma/CBC/Centrex) - /Lpf Epith few /Lpf Bacteria 3+ /Hpf # Amorphous (Fma/CMC/Centrex) - /Lpf Crystals, Fluid (Fma/CMC/CTX) - Urine Culture And 07/21/2018 [facility] Urine Culture SEE RESULT BELOW 1 Sensitivities Poc Urinalysis 07/06/2018 [facility] Poc Glucose, Negative Negative Urine Poc Bilirubin, Urine Negative Negative Poc Ketone, Urine Negative Negative Poc Specific Diggs, Urine 1.020 N 1.010-1.030 Poc Blood, Urine 2+ Abnormal Negative Poc pH, Urine 7.0 N 5-9 Poc Protein, Urine Negative Negative Poc Urobilinogen, Urine 0.2 Negative Poc Nitrite, Urine Negative Negative Poc Leukocytes, Urine 2+ Abnormal Negative Poc Color, Urine Yellow Poc Clarity, Urine Slightly Cloudy 2 Poc Urinalysis 07/06/2018 [facility] Poc Glucose, Urine Negative Negative 3 Poc Bilirubin, Urine Negative Negative 4 Poc Ketone, Urine Negative Negative 5 Poc Specific Diggs, Urine >=1.030 N 1.010-1.030 6 Poc Blood, Urine 2+ Negative 7 Poc pH, Urine 6.5 N 5-9 8 Poc Protein, Urine Negative Negative 9 Poc Urobilinogen, Urine 0.2 Negative 10 Poc Nitrite, Urine Negative Negative 11 Poc Leukocytes, Urine 2+ Negative 12 Poc Color, Urine Yellow 13 Poc Clarity, Urine Clear 14 Urine Culture And 07/06/2018 [facility] Urine Culture SEE RESULT BELOW 15, 16 Sensitivities Urine Culture And 06/18/2018 [facility] Urine Culture SEE RESULT BELOW 17, 18 Sensitivities Poc Urinalysis 06/18/2018 [facility] Poc Glucose, Negative Negative Urine Poc Bilirubin, Urine Negative Negative Poc Ketone, Urine Negative Negative Poc Specific Diggs, Urine 1.015 N 1.010-1.030 Poc Blood, Urine 2+ Abnormal Negative Poc pH, Urine 5.5 N 5-9 Poc Protein, Urine Negative Negative Poc Urobilinogen, Urine 0.2 Negative Poc Nitrite, Urine Negative Negative Poc Leukocytes, Urine 3+ Abnormal Negative Poc Color, Urine Yellow Poc Clarity, Urine Cloudy 19 Comp Metabolic Panel 04/08/2018 [facility] Sodium 135 mmol/L N 135-145 Potassium 3.5 mmol/L N 3.5-5.0 Chloride 97 mmol/L Low 101-111 Co2 Carbon Dioxide 32 mmol/L N 22-32 Anion Gap 6 mmol/L N 2-11 Glucose 100 mg/dL N 70-100 Blood Urea Nitrogen 21 mg/dL N 6-24 Creatinine 0.75 mg/dL N 0.51-0.95 BUN/Creatinine Ratio 28.0 High 8-20 Calcium 9.5 mg/dL N 8.6-10.3 Total Protein 6.7 g/dL N 6.4-8.9 Albumin 4.0 g/dL N 3.2-5.2 Globulin 2.7 g/dL N 2-4 Albumin/Globulin Ratio 1.5 N 1-3 Total Bilirubin 0.60 mg/dL N 0.2-1.0 Alkaline Phosphatase 91 U/L N 34-104 Alt 13 U/L N 7-52 Ast 19 U/L N 13-39 Egfr Non- 73.3 >60 Egfr 88.7 >60 20 CBC Auto Diff 04/08/2018 [facility] White Blood Count 17.2 10^3/uL High 3.5- 10.8 Red Blood Count 4.61 10^6/uL N 4.00-5.40 Hemoglobin 12.1 g/dL N 12.0-16.0 Hematocrit 37 % N 35-47 Mean Corpuscular Volume 81 fL N 80-97 Mean Corpuscular Hemoglobin 26 pg Low 27-31 Mean Corpuscular HGB Conc 33 g/dL N 31-36 Red Cell Distribution Width 17 % High 10.5-15 Platelet Count 207 10^3/uL N 150-450 Mean Platelet Volume 7.3 um3 Low 7.4-10.4 Abs Neutrophils 3.6 10^3/uL N 1.5-7.7 Abs Lymphocytes 12.9 10^3/uL High 1.0-4.8 Abs Monocytes 0.5 10^3/uL N 0-0.8 Abs Eosinophils 0.1 10^3/uL N 0-0.6 Abs Basophils 0.1 10^3/uL N 0-0.2 Abs Nucleated RBC 0 10^3/uL Granulocyte % 21.1 % Low 38-83 Lymphocyte % 74.8 % High 25-47 Monocyte % 2.9 % N 0-7 Eosinophil % 0.5 % N 0-6 Basophil % 0.7 % N 0-2 Nucleated Red Blood Cells % 0.2 Laboratory test 04/08/2018 [facility] Pathologist Review (SEE NOTE) 21 finding Urine Culture And 01/25/2018 [facility] Urine Culture SEE RESULT 22, 23 Sensitivities BELOW Poc Urinalysis 01/25/2018 [facility] Poc Glucose, Urine Negative Negative Poc Bilirubin, Urine Negative Negative Poc Ketone, Urine Negative Negative Poc Specific Diggs, Urine 1.015 N 1.010-1.030 Poc Blood, Urine 2+ Abnormal Negative Poc pH, Urine 6.0 N 5-9 Poc Protein, Urine 1+ Abnormal Negative Poc Urobilinogen, Urine 0.2 Negative Poc Nitrite, Urine Negative Negative Poc Leukocytes, Urine 3+ Abnormal Negative Poc Color, Urine Yellow Poc Clarity, Urine Cloudy 24 Lipid Profile 06/18/2017 Adonis Garcia ([facility]) Cholesterol 211 mg/dL High 120-200 Triglycerides 83 mg/dL 30-200 HDL Cholesterol 66 mg/dL 30-85 LDL (Calculated) 128 CALC 0-129 VLDL Cholesterol 17 mg/dL 0-50 HDL Risk Factor 3.2 CALC 0.0-4.4 Complete Blood Count 06/18/2017 Adonis Garcia (a) WBC 19.2 x10^3/UL High 3.6-9.6 25 RBC 4.69 x10^6/UL 3.90-5.70 HGB 12.4 g/dL 12.1-17.2 HCT 38 % 36-50 MCV 81.0 fL Low 82.2-97.4 MCH 26.4 pg Low 27.6-33.3 MCHC 32.5 g/dL Low 33.0-35.5 RDW 16.0 % High 11.6-13.7 PLT 252 x10^3/UL 150-400 MPV 6.6 fL Low 7.4-10.4 Gran # 4.4 x10^3/UL 1.5-7.2 Lymph# 14.1 x10^3/UL High 0.7-4.9 Rabun# 0.7 x10^3/UL 0.1-0.9 Gran % 22.4 % Low 42.2-75.2 Lymph % 73.7 % High 20.5-51.1 Rabun% 3.9 % 1.7-9.3 Comprehensive Metabolic 06/18/2017 Lamb Radha ([facility]) Sodium 134 mEq/L 134-149 Prof Potassium 3.7 mEq/L 3.6-5.5 Chloride 94 mEq/L 94-112 Carbon Dioxide 28 mEq/L 21-32 Glucose 106 mg/dL High 70-105 26 BUN 19 mg/dL 6-26 Creatinine 0.7 mg/dL [...] >60 ml/min/1.73m^ >=60 GFR >60 ml/min/1.73m^ >=60 Comp Metabolic Panel 04/09/2017 [facility] Sodium 135 mmol/L N 133-145 Potassium 3.8 mmol/L N 3.5-5.0 Chloride 97 mmol/L Low 101-111 Co2 Carbon Dioxide 33 mmol/L High 22-32 Anion Gap 5 mmol/L N 2-11 Glucose 107 mg/dL High 70-100 Blood Urea Nitrogen 24 mg/dL N 6-24 Creatinine 0.71 mg/dL N 0.51-0.95 BUN/Creatinine Ratio 33.8 High 8-20 Calcium 10.0 mg/dL N 8.6-10.3 Total Protein 7.3 g/dL N 6.4-8.9 Albumin 4.1 g/dL N 3.2-5.2 Globulin 3.2 g/dL N 2-4 Albumin/Globulin Ratio 1.3 N 1-3 Total Bilirubin 0.60 mg/dL N 0.2-1.0 Alkaline Phosphatase 84 U/L N 34-104 Alt 15 U/L N 7-52 Ast 18 U/L N 13-39 Egfr Non- 78.2 N >60 Egfr 100.6 N >60 27 CBC Auto Diff 04/09/2017 [facility] White Blood Count 19.4 10^3/uL High 3.5- 10.8 Red Blood Count 4.70 10^6/uL N 4.0-5.4 Hemoglobin 12.1 g/dL N 12.0-16.0 Hematocrit 38 % N 35-47 Mean Corpuscular Volume 80 fL N 80-97 Mean Corpuscular Hemoglobin 26 pg Low 27-31 Mean Corpuscular HGB Conc 32 g/dL N 31-36 Red Cell Distribution Width 18 % High 10.5-15 Platelet Count 219 10^3/uL N 150-450 Mean Platelet Volume 7 um3 Low 7.4-10.4 Abs Neutrophils 4.2 10^3/uL N 1.5-7.7 Abs Lymphocytes 14.5 10^3/uL High 1.0-4.8 Abs Monocytes 0.5 10^3/uL N 0-0.8 Abs Eosinophils 0.1 10^3/uL N 0-0.6 Abs Basophils 0.1 10^3/uL N 0-0.2 Abs Nucleated RBC 0.01 10^3/uL N Granulocyte % 21.9 % Low 38-83 Lymphocyte % 74.8 % High 25-47 Monocyte % 2.4 % N 1-9 Eosinophil % 0.3 % N 0-6 Basophil % 0.6 % N 0-2 Nucleated Red Blood Cells % 0.1 N Urinalysis Profile 07/29/2016 [facility] Urine Color Yellow N Urine Appearance Clear N Urine Specific Diggs 1.015 N 1.010-1.030 Urine pH 6.0 N 5-9 Urine Urobilinogen Negative N Negative Urine Ketones Negative N Negative Urine Protein Negative N Negative Urine Leukocytes Trace Abnormal Negative Urine Blood 1+ Abnormal Negative * * Abnormal Negative 28 Urine Nitrite Negative N Negative Urine Bilirubin Negative N Negative Urine Glucose Negative N Negative Urine White Blood Cell Trace(0-5/hpf) N Absent Urine Red Blood Cell Trace(0-2/hpf) N Absent Urine Bacteria Absent N Absent Urine Squamous Epithelial Cell Present Abnormal Absent Laboratory test 07/29/2016 [facility] Urine Culture And SEE RESULT BELOW 29 finding Sensitivities Laboratory test 07/05/2016 [facility] Urine Culture And SEE RESULT BELOW 30, 31 finding Sensitivities Urinalysis Profile 07/05/2016 [facility] Urine Color Ana N Urine Appearance Cloudy N Urine Specific Diggs 1.021 N 1.010-1.030 Urine pH 5.0 N 5-9 Urine Urobilinogen Negative N Negative Urine Ketones Trace Abnormal Negative Urine Protein Negative N Negative Urine Leukocytes 3+ Abnormal Negative Urine Blood Negative N Negative * * Abnormal Negative 32 Urine Nitrite Negative N Negative Urine Bilirubin Negative N Negative Urine Glucose Negative N Negative Urine White Blood Cell 1+(6-10/hpf) Abnormal Absent Urine Red Blood Cell Absent N Absent Urine Bacteria Absent N Absent Urine Squamous Epithelial Cell Present Abnormal Absent Urine Hyaline Casts Present Abnormal Absent CBC No Diff 07/05/2016 [facility] White Blood Count 19.6 10^3/uL High 3.5-10.8 Red Blood Count 4.79 10^6/uL N 4.0-5.4 Hemoglobin 12.3 g/dL N 12.0-16.0 Hematocrit 38 % N 35-47 Mean Corpuscular Volume 80 fL N 80-97 Mean Corpuscular Hemoglobin 26 pg Low 27-31 Mean Corpuscular HGB Conc 32 g/dL N 31-36 Red Cell Distribution Width 17 % High 10.5-15 Platelet Count 218 10^3/uL N 150-450 Mean Platelet Volume 8 um3 N 7.4-10.4 Type & Screen 07/05/2016 [facility] Patient Blood Type A Negative N Antibody Screen NEGATIVE N Inr/Protime 07/05/2016 [facility] Inr 0.94 N 0.89-1.11 Laboratory test finding 07/05/2016 [facility] Partial Thrombo 30.7 seconds N 26.0-36.3 33 Time PTT Comp Metabolic Panel 07/05/2016 [facility] Sodium 138 mmol/L N 133-145 Potassium 4.0 mmol/L N 3.5-5.0 Chloride 98 mmol/L Low 101-111 Co2 Carbon Dioxide 32 mmol/L N 22-32 Anion Gap 8 mmol/L N 2-11 Glucose 86 mg/dL N 70-100 Blood Urea Nitrogen 25 mg/dL High 6-24 Creatinine 0.86 mg/dL N 0.51-0.95 BUN/Creatinine Ratio 29.1 High 8-20 Calcium 10.2 mg/dL N 8.6-10.3 Total Protein 7.1 g/dL N 6.4-8.9 Albumin 4.2 g/dL N 3.2-5.2 Globulin 2.9 g/dL N 2-4 Albumin/Globulin Ratio 1.4 N 1-3 Total Bilirubin 0.70 mg/dL N 0.2-1.0 Alkaline Phosphatase 96 U/L N 34-104 Alt 14 U/L N 7-52 Ast 18 U/L N 13-39 Egfr Non- 62.7 N >60 Egfr 80.7 N >60 34 CBC Auto Diff 03/07/2016 [facility] White Blood Count 20.4 10^3/uL High 3.5- 10.8 Red Blood Count 4.66 10^6/uL N 4.0-5.4 Hemoglobin 11.9 g/dL Low 12.0-16.0 Hematocrit 37 % N 35-47 Mean Corpuscular Volume 80 fL N 80-97 Mean Corpuscular Hemoglobin 26 pg Low 27-31 Mean Corpuscular HGB Conc 32 g/dL N 31-36 Red Cell Distribution Width 17 % High 10.5-15 Platelet Count 228 10^3/uL N 150-450 Mean Platelet Volume 7 um3 Low 7.4-10.4 Abs Neutrophils 5.5 10^3/uL N 1.5-7.7 Abs Lymphocytes 14.1 10^3/uL High 1.0-4.8 Abs Monocytes 0.6 10^3/uL N 0-0.8 Abs Eosinophils 0.1 10^3/uL N 0-0.6 Abs Basophils 0.1 10^3/uL N 0-0.2 Abs Nucleated RBC 0.03 10^3/uL N Granulocyte % 26.9 % Low 38-83 Lymphocyte % 69.2 % High 25-47 Monocyte % 2.9 % N 1-9 Eosinophil % 0.4 % N 0-6 Basophil % 0.6 % N 0-2 Nucleated Red Blood Cells % 0.2 N Laboratory test 01/28/2016 [facility] C Reactive Protein 11.38 mg/L High < 5.00 35 finding CBC Auto Diff 01/28/2016 [facility] White Blood Count 22.6 10^3/uL High 3.5- 10.8 Red Blood Count 4.60 10^6/uL N 4.0-5.4 Hemoglobin 11.6 g/dL Low 12.0-16.0 Hematocrit 36 % N 35-47 Mean Corpuscular Volume 79 fL Low 80-97 Mean Corpuscular Hemoglobin 25 pg Low 27-31 Mean Corpuscular HGB Conc 32 g/dL N 31-36 Red Cell Distribution Width 17 % High 10.5-15 Platelet Count 252 10^3/uL N 150-450 Mean Platelet Volume 8 um3 N 7.4-10.4 Abs Neutrophils 5.6 10^3/uL N 1.5-7.7 Abs Lymphocytes 16.2 10^3/uL High 1.0-4.8 Abs Monocytes 0.6 10^3/uL N 0-0.8 Abs Eosinophils 0.1 10^3/uL N 0-0.6 Abs Basophils 0.1 10^3/uL N 0-0.2 Abs Nucleated RBC 0.05 10^3/uL N Granulocyte % 24.7 % Low 38-83 Lymphocyte % 71.7 % High 25-47 Monocyte % 2.6 % N 1-9 Eosinophil % 0.6 % N 0-6 Basophil % 0.4 % N 0-2 Nucleated Red Blood Cells % 0.2 N Laboratory test 01/28/2016 [facility] Erythrocyte Sed Rate 27 mm/Hr N 0-40 finding Ua - Micro (a) 09/28/2015 [facility] Appearance CLEAR (607)- - Color YELLOW Glucose, Urine (Fma/CMC/CTX) NEG Bilirubin NEG Ketones NEG SP Grav 1.010 Blood TRACE-LYSED # PH 5.5 Protein NEG Urobil 0.2 Nitrite NEG Leukocytes (Fma/CMC/Centrex) SMALL # Hyaline - /Lpf Granular - /Lpf WBC (Fma,Centrex) 2-3 # RBC 0-1 # Mucus - /Lpf Epith OCC /Lpf # Bacteria TRACE /Hpf # Amorphous - /Lpf Crystals, Fluid (Fma/CMC/CTX) - Z#Comments - Ua - Micro (a) 09/02/2015 [facility] Medicine Appearance CLOUDY # (607)- - Color YELLOW Glucose, Urine (Fma/CMC/CTX) NEG Bilirubin NEG Ketones NEG SP Grav 1.015 Blood TRACE-INTACT # PH 5.5 Protein NEG Urobil 0.2 Nitrite POS # Leukocytes (Fma/CMC/Centrex) SMALL # WBC (Fma,Centrex) 10-12 # RBC 0-1 # Epith OCC /Lpf # Bacteria 3+ /Hpf # Urine Culture 09/02/2015 [facility] Urine Culture, Final report Abnormal 36, 37 Routine [address] [facility] [place] [address] (607)- - Result 1 See Comment: Abnormal 38 Antimicrobial Susceptibility See Comment: 39 Ua - Micro (Fma) 08/08/2015 [facility] Appearance clear (607)- - Color yellow Glucose, Urine (Fma/CMC/CTX) neg Bilirubin neg Ketones neg SP Grav 1.020 Blood moderate # PH 5.5 Protein ssa trace # Urobil 0.2 Nitrite neg Leukocytes (Fma/CMC/Centrex) large # Hyaline - /Lpf Granular - /Lpf WBC (Fma,Centrex) >100 # RBC 3-5 # Mucus (Fma/CBC/Centrex) - /Lpf Epith few /Lpf # Bacteria 1+ /Hpf # Amorphous (Fma/CMC/Centrex) - /Lpf Crystals, Fluid (Fma/CMC/CTX) - Z#Comments - Complete Blood Count 08/08/2015 Lamb Radha (a) WBC 19.7 x10^3/UL High 3.6-9.6 40 RBC 4.29 x10^6/UL 3.90-5.70 HGB 12.2 g/dL 12.1-17.2 HCT 36 % 36-50 MCV 85.0 fL 82.2-97.4 MCH 28.5 pg 27.6-33.3 MCHC 33.6 g/dL 33.0-35.5 RDW 14.9 % High 11.6-13.7 PLT 293 x10^3/UL 150-400 MPV 7.0 fL Low 7.4-10.4 Gran # 4.2 x10^3/UL 1.5-7.2 Lymph# 14.8 x10^3/UL High 0.7-4.9 Rabun# 0.7 x10^3/UL 0.1-0.9 Gran % 21.1 % Low 42.2-75.2 Lymph % 75.2 % High 20.5-51.1 Rabun% 3.7 % 1.7-9.3 Lipid Profile 08/08/2015 Lamb Radha ([facility]) Cholesterol 212 mg/dL High 120-200 Triglycerides 91 mg/dL 30-200 HDL Cholesterol 50 mg/dL 30-85 LDL (Calculated) 144 CALC High 0-129 VLDL Cholesterol 18 mg/dL 0-50 HDL Risk Factor 4.2 CALC 0.0-4.4 Comprehensive Metabolic 08/08/2015 Adonis Radha (a) Sodium 141 mEq/L 134-149 Prof Potassium 3.9 mEq/L 3.6-5.5 Chloride 101 mEq/L 94-112 Carbon Dioxide 28 mEq/L 21-32 Glucose 106 mg/dL High 70-105 41 BUN 24 mg/dL 6-26 Creatinine 0.9 mg/dL [...] >60 ml/min/1.73m^ >=60 GFR >60 ml/min/1.73m^ >=60 CBC Manual Diff-[facility] 08/08/2015 [facility] WBC 19.7 High 3.6-9.6 (607)- - RBC 4.29 3.90-5.70 Hemoglobin (Fma/CMC/CTX) 12.2 g/dL 12.1 - 17.2 Hematocrit (Fma/CMC/CTX) 36.4 % 36.1 - 50.3 Mean Corpuscular Vol 85 82.2-97.4 Mean Corpuscular Hemoglobin 28.5 27.6-33.3 Mean Corpuscular Hemo Concen 33.6 32.0-36.0 Platelets 293 10^3/ul 150-400 RDW 14.9 High 11.6-13.7 Mean Platelet Volume 7.0 5.5-11.0 Neutrophil 21 # Band 4 Lymphocytes 72 # Monocyte 3 Anisocytosis (Fma/CMC/Centrex) slight Poikilocytosis slight Z#Comment see comment 42 1 SEE RESULT BELOW Name: GEORGIE LEE : [address]: Rocco Rios MD Acct: [id number] Unit: [id number] AGE: 88 Location: [facility] Re07/21/18 SEX: F Status: REG REF SPEC: [id number] LORIE: 07/21/[address] [facility] [address]: Rocco Rios MD REQ: [id number] RECD: 07/21/18 STATUS: COMP _ SOURCE: URINE SPDESC: ORDERED: Urine Culture COMMENTS: [id number] kemp urine tube Urine Source: Random Procedure Result Reported Site Urine Culture Final 07/23/18- 0835 ML Organism 1 KLEBSIELLA ORNITHINOLYTICA [place] Count >100,000 (Many) CFU/ML 1. KLEBSIELLA ORNITHINOLYTICA [facility]. RX --------- ------ Ampicillin >=32 R Cefazolin <=4 S Cefepime <=1 S Ceftriaxone <=1 S Ciprofloxacin <=0.25 S Gentamicin <=1 S Levofloxacin <=0.12 S Meropenem <=0.25 S Nitrofurantoin 64 I Tetracycline <=1 S Pipercillin/Tazobactam <=4 S Trimethoprim/Sulfamethoxazole <=20 S Amoxicillin/Clavulanic Acid <=2 S Aztreonam <=1 S Contact the Microbiology Department for any additional antibiotic reporting. * ML - Main Lab . END OF REPORT DEPARTMENT OF PATHOLOGY, [address] [place] [address] Luís Smith M.D. Director [facility] # [id number] 2 Filter Helper: [id number] 3 Duplicate test, refer to [id number] for results. CORRECTED REPORT --- Corrected on 07/07/18843 --- POC Glu, Ur previously reported as: Negative 4 CORRECTED REPORT --- Corrected on 07/07/18843 --- POC Bili, Ur previously reported as: Negative 5 CORRECTED REPORT --- Corrected on 07/07/18843 --- POC Ket, Ur previously reported as: Negative 6 CORRECTED REPORT --- Corrected on 07/07/18843 --- POC SG, Ur previously reported as: >=1.030 7 CORRECTED REPORT --- Corrected on 07/07/18843 --- POC Blood, Ur previously reported as: 2+ An 8 CORRECTED REPORT --- Corrected on 07/07/18843 --- POC pH, Ur previously reported as: 6.5 9 CORRECTED REPORT --- Corrected on 07/07/18843 --- POC Protein, Ur previously reported as: Negative 10 CORRECTED REPORT --- Corrected on 07/07/18844 --- POC Urobili, Ur previously reported as: 0.2 11 CORRECTED REPORT --- Corrected on 07/07/18844 --- POC Nitrite, Ur previously reported as: Negative 12 CORRECTED REPORT --- Corrected on 07/07/18844 --- POC Leuko, Ur previously reported as: 2+ An 13 CORRECTED REPORT --- Corrected on 07/07/18844 --- POC Color, Ur previously reported as: Yellow 14 Filter Helper: [id number] CORRECTED REPORT --- Corrected on 07/07/18844 --- POC Clarity, Ur previously reported as: Clear Filter Helper: [id number] 15 [id number] SEE RESULT BELOW Name: HERNANDEZPeterGEORGIE G : [address]: Zaid Anderson MD Acct: [id number] Unit: [id number] AGE: 88 Location: [facility] Re07/06/18 SEX: F Status: DEP ER SPEC: [id number] LORIE: 07/06/18-[address] [facility] [address]: Zaid Anderson MD REQ: [id number] RECD: 07/06/189788 STATUS: BETHANY KAM DR: Rocco Rios MD _ SOURCE: URINE SPDESC: ORDERED: Urine Culture COMMENTS: [id number] Procedure Result Reported Site Urine Culture Final 07/07/18- 1310 ML No growth of clinically significant organisms * ML - Main Lab . END OF REPORT DEPARTMENT OF PATHOLOGY, [address] [place] [address] Luís Smith M.D. Director RUPERTO # [id number] 17 [id number] SEE RESULT BELOW Name: GEORGIE LEE Niya : [address]: Reina Guillermo MD Acct: [id number] Unit: [id number] AGE: 88 Location: [facility] Re06/18/18 SEX: F Status: DEP ER SPEC: [id number] LORIE: 06/18/18 [facility] [address]: Reina Guillermo MD REQ: [id number] RECD: 06/18/18 STATUS: BETHANY KAM DR: Rocco Rios MD _ SOURCE: URINE SPDESC: ORDERED: Urine Culture COMMENTS: [id number] Procedure Result Reported Site Urine Culture Final 06/21/18- 0907 ML Organism 1 KLEBSIELLA ORNITHINOLYTICA [place] Count >100,000 (Many) CFU/ML 1. KLEBSIELLA ORNITHINOLYTICA [facility].I.[facility]. RX --------- ------ Ampicillin >=32 R Cefazolin <=4 S Cefepime <=1 S Ceftriaxone <=1 S Ciprofloxacin <=0.25 S Gentamicin <=1 S Levofloxacin <=0.12 S Meropenem <=0.25 S Nitrofurantoin 32 S Tetracycline <=1 S Pipercillin/Tazobactam 8 S Trimethoprim/Sulfamethoxazole <=20 S Amoxicillin/Clavulanic Acid <=2 S Aztreonam <=1 S Contact the Microbiology Department for any additional antibiotic reporting. * ML - Main Lab . END OF REPORT DEPARTMENT OF PATHOLOGY, [address] [place] [address] Luís Smith M.D. Director [facility] # [id number] 19 Filter Helper: [id number] 20 Because ethnic data is not always readily [...] 15-29 5 Kidney failure <15 (or dialysis) 21 Leukocytosis with absolute lymphocytosis morphologically compatible with chronic lymphocytic leukemia. Additional studies clinically warranted. Reviewed by Dr. Smith 22 [id number] 23 SEE RESULT BELOW Name: GEORGIE LEE : [address]: Perri Nick MD Acct: [id number] Unit: [id number] AGE: 87 Location: [facility] Re01/25/18 SEX: F Status: DEP ER SPEC: [id number] LORIE: 01/25/180849 [facility] DR: Perri Nick MD REQ: [id number] RECD: 01/25/18163 STATUS: BETHANY KAM DR: Rocco Rios MD _ SOURCE: URINE SPDESC: ORDERED: Urine Culture COMMENTS: [id number] Procedure Result Reported Site Urine Culture Final 01/27/18- 0755 ML Organism 1 [facility] [place] Count >100,000 (Many) CFU/ML 1. [facility] RX --------- ------ Cefazolin >=64 R Cefepime <=1 S Ceftriaxone <=1 S Ciprofloxacin <=0.25 S Gentamicin <=1 S Levofloxacin 1 S Meropenem <=0.25 S Nitrofurantoin 32 S Tetracycline <=1 S Pipercillin/Tazobactam <=4 S Trimethoprim/Sulfamethoxazole <=20 S Amoxicillin/Clavulanic Acid R Aztreonam <=1 S Contact the Microbiology Department for any additional antibiotic reporting. * ML - Main Lab . END OF REPORT DEPARTMENT OF PATHOLOGY, [address] [place] [address] Luís Smith M.D. Director [facility] # [id number] 24 Filter Helper: [id number] RESULTS VERIFIED BY REPEAT ANALYSIS 26 RESULTS VERIFIED BY REPEAT ANALYSIS 27 Because ethnic data is not always readily [...] 15-29 5 Kidney failure <15 (or dialysis) 28 *Ascorbic acid is present which may interfere with detection of blood. 29 SEE RESULT BELOW Name: HERNANDEZPeterGEORGIE G : [address]: Cindy Matamoros MD Acct: [id number] Unit: [id number] AGE: 86 Location: [facility] Re07/29/16 SEX: F Status: REG REF SPEC: [id number] LORIE: 07/29/16-[address] [facility] [address]: Cindy Matamoros MD REQ: [id number] RECD: 07/29/16-1341 STATUS: COMP [facility] DR: Alka Bartlett MD Visiting Nurse Service _ SOURCE: URINE SPDESC: ORDERED: Urine Culture Procedure Result Reported Site Urine Culture Final 07/31/16- 1046 ML No growth of clinically significant organisms * ML - MAIN LAB (PSC1) . END OF REPORT * ML=Testing performed at Main Lab DEPARTMENT OF PATHOLOGY, [address] [place] [address] Luís Smith M.D. Director [facility] # [id number] 07/10 31 SEE RESULT BELOW Name: GEORGIE LEE : [address]: Alka Bartlett MD Acct: [id number] Unit: [id number] AGE: 86 Location: [facility] Re07/05/16 SEX: F Status: REG REF SPEC: [id number] LORIE: 07/05/16-57 [facility] [address]: Alka Bartlett MD REQ: [id number] RECD: 07/05/16 STATUS: BETHANY KAM DR: Cindy Matamoros MD _ SOURCE: URINE SPDESC: ORDERED: Urine Culture COMMENTS: KRISHAN 07/10 QUERIES: Urine Source: Clean Catch Procedure Result Reported Site Urine Culture Final 07/06/16- 1327 ML No growth of clinically significant organisms * ML - MAIN LAB (PSC1) . END OF REPORT * ML=Testing performed at Main Lab DEPARTMENT OF PATHOLOGY, [address] [place] [address] Luís Smith M.D. Director [facility] # [id number] 32 *Ascorbic acid is present which may interfere with detection of blood. 33 AA 07/10 34 Because ethnic data is not always readily [...] 15-29 5 Kidney failure <15 (or dialysis) 35 Acute inflammation: >10.00 36 SRC:urine 1 kemp top 37 Source of Specimen: urine 1 kemp top 38 Source of Specimen: urine 1 kemp top Escherichia coli, identified by an automated biochemical system. Greater than 100,000 colony forming units per mL 39 Source of Specimen: urine 1 kemp top S=Susceptible; I=Intermediate; R=Resistant P=Positive; N=Negative MICS are expressed in micrograms per mL Antibiotic RSLT#1 RSLT#2 RSLT#3 RSLT#4 Amoxicillin/Clavulanic Acid S Ampicillin S Cefepime S Ceftriaxone S Cefuroxime S Cephalothin S Ciprofloxacin S Ertapenem S Gentamicin S Imipenem S Levofloxacin S Nitrofurantoin S Piperacillin S Tetracycline S Tobramycin S Trimethoprim/Sulfa S 40 RESULTS VERIFIED BY REPEAT ANALYSIS 41 RESULTS VERIFIED BY REPEAT ANALYSIS 42 few acanthocytes many smudge cells platelets appear normal on smear. Procedures Date Code Description Status 07/31/2018 [id number] Mammogram Completed 07/08/2018 [id number] Mammogram Completed 11/15/2017 [id number] Mammogram Completed 10/23/2017 54535 Injection Subcutaneous Or Intramuscular Completed 09/17/2017 22319 Anoscopy Diagnostic Completed 07/08/2017 [id number] Mammogram Completed 06/13/2016 77679 Electrocardiogram Complete Completed 12/05/2015 [id number] Bone Mineral Density Test Completed 10/20/2015 [id number] Mammogram Completed 06/10/2011 [id number] Colonoscopy Completed Encounters Type Date Location Provider Dx Diagnosis Office Visit 03/03/2018 [facility] Office Rocco Gudino R0Mio Cough 8:40a MD [place] Office Visit 01/23/2018 Main Office Rocco Gudino Z02.89 Encounter for other 2:50p MD [place] administrative examinations I10 Essential (primary) hypertension Office Visit 09/17/2017 [facility] Rocco Galvez R58 Hemorrhage, not 11:00a Office Noelle Gan elsewhere classified Office Visit 06/13/2016 [facility] Cindy Matamoros Z01.818 Encounter for other 10:30a Office M.DJulia preprocedural examination M25.551 Pain in right hip 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 Yes No Are there Barriers to Adherence? Yes No Has the patient been asked about herbal supplements and therapies, and OTC meds? Yes No
--- OUTSIDE RECORDS SUMMARY | 2018-09-16 12:21 | XMS REPORT | Continuity of Care Document ---
:1930 External Reference #:[id number] Author Name Collette Sunshine Care Team Providers Name Role Phone Rocco Rios MD Primary Care Physician Unavailable Payers Date Identification Numbers Payment Provider Subscriber Effective: 1996 Policy Number: [id number] Medicare Georgie Franco PayID: [id number] [address] [place] [address] Policy Number: [id number] [facility] Georgie Franco PayID: [id number] [address] [place] [address] Advance Directives Description No Information Available Problems Date Description Provider Status Onset: 10/14/2013 Dyspnea Kaz Shelton M.D. Active Onset: 10/14/2013 Chest pain Kaz Shelton M.D. Active Onset: 12/08/2014 Degenerative joint disease of pelvis Charlie Felton M.D. Active Onset: 12/08/2014 Prosthetic arthroplasty of the hip Charlie Felton M.D. Active Onset: 06/22/2015 Trochanteric bursitis Charlie Felton M.D. Active Onset: 09/08/2015 Injury of hip region Charlie Felton M.D. Active Onset: 09/29/2015 Unspecified injury of right Charlie Felton M.D. Active quadriceps muscle, fascia and tendon, subsequent encounter Onset: 11/17/2015 Stress fracture, right femur, Charlie Felton M.D. Active subsequent encounter for fracture with routine healing Onset: 01/18/2016 Iliotibial band friction syndrome Charlie Felton M.D. Active Onset: 02/08/2016 Psoas tendinitis Charlie Felton M.D. Active Onset: 03/12/2016 Periprosthetic osteolysis Alka Dhruv, M.D. 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 Active Family History Description No Information Available Social History Type Date Description Comments Sex Unknown Lives With Occupation Retired ETOH Use Denies alcohol use Tobacco Use Start: Unknown End: Patient is a former Quit 40 years ago. Unknown smoker Pt smokes maybe one pack a week Recreational Drug Use Never Used Drugs Smoking Status Reviewed: 08/26/18 Patient is a former Quit 40 years ago. smoker Pt smokes maybe one pack a week Exercise Type/Frequency Exercises [facility], cardio, weights Allergies, Adverse Reactions, Alerts Date Description Reaction Status Severity Comments 08/12/2013 Penicillin Active hives 10/14/2013 Latex Active gloves, itchy Medications Medication Date Status Form Strength Qnty SIG Indications Ordering Provider Florastor 08/27/19 Active Capsules 250mg 1 by Boris Fernandez 19 mouth Peres, twice a DO FACC day Hydrochlorothiazi Active 25mg qd 1 po qd Unknown de 00 Preservision Active Capsules 1 by Unknown Areds 00 mouth once a day Multi Complete Active 1 by Unknown 00 mouth daily [facility] Active 1 in am 1 Unknown 00 in pm Ra [facility]-Katja Active Tablets 1 by Unknown 00 mouth daily Oxycodone-Acetami 07/04/19 Hx Tablets 5-325mg 60tab 1-2 by Alka steel 17 - s mouth Dhruv, Unknown every 4-6 M.D. hours as needed for pain. Warfarin Sodium 07/04/19 Hx Tablets 2mg 60tab take 1-5 Alka 17 - s tablets Dhruv, Unknown as M.D. directed daily. Colace 07/04/19 Hx Capsules 100mg 60cap take as Alka 17 - s needed to Dhruv, Unknown stimulate M.D. d bowel movement. Tramadol HCL 03/30/20 Hx Tablets 50mg 60tab 1 - 2 M76.31 Alka 16 - s tablet by Dhruv, Unknown mouth M.D. every 6 hours as needed pain Tylenol With 11/08/19 Hx Tablets 300-30mg 42tab one to 2 Charlie Codeine #3 16 - s tabs bid Jose Francisco, Unknown as needed M.D. Voltaren 09/29/19 Hx Gel 1% 500gm apply 2 Charlie 16 - grams to Jose Francisco, Unknown affected M.D. area twice a day as needed Clindamycin HCL 09/29/19 Hx Capsules 300mg 4caps 2 tabs by Charlie 16 - mouth 1 Jose Francisco, Unknown hour M.D. prior to dental work Mobic 09/08/19 Hx Tablets 7.5mg 60tab 1 by Charlie 16 - s mouth Jose Francisco, Unknown twice a M.D. day as needed with meals Dilaudid 07/10/19 Hx Tablets 2mg 30tab 1 tab by Charlie 15 - s mouth Jose Francisco, 01/31/20 every 4 M.D. 15 hours as needed pain Warfarin Sodium 06/25/19 Hx Tablets 2.5mg 60tab Take as Charlie 15 - s Directed Jose Francisco, 01/31/20 AT 5PM M.D. 15 Daily Tramadol HCL 06/25/19 Hx Tablets 50mg 60tab 1-2 tabs Charlie 15 - s by mouth Jose Francisco, 06/25/19 q4-6 M.D. 15 hours as needed pain Tramadol HCL 06/25/19 Hx Tablets 50mg 30tab 1-2 tabs Charlie 15 - s by mouth Jose Francisco, 01/31/20 q4-6 M.D. 15 hours as needed pain Oxycodone-Acetami 06/01/20 Hx Tablets 5-325mg 90tab one to Charlie steel 14 - s two tabs Jose Francisco, 01/31/20 by mouth M.D. 15 every 4-6 hours as needed for pain Coumadin 06/01/20 Hx Tablets 2.5mg 60tab take as Charlie 14 - s directed Jose Francisco, 06/25/19 at 5pm M.D. 15 daily Colace 06/01/20 Hx Capsules 100mg 60cap one Charlie 14 - s capsule Jose Francisco, 01/31/20 two times M.D. 15 a day as needed constipat ion Celebrex 01/30/20 Hx Capsules 200mg 90cap 1 by Charlie 14 - s mouth Jose Francisco, 08/23/20 every day M.D. 15 Mobic 11/26/19 Hx Tablets 7.5mg 60tab one tab Charlie 14 - s twice Jose Francisco, 01/30/20 daily M.D. 14 with food as needed Fish Oil Hx Capsules 1000mg 2 by Unknown 00 - mouth Unknown every day Centravites Hx Tablets One po Unknown 00 - daily Unknown Calcium 600+D3 Hx One daily Unknown 00 - Unknown Coumadin Hx 5mg Unknown - 01/31/20 15 Vancomycin HCL Hx 125mg Unknown - 01/31/20 15 Biotin Hx Capsules 5000mcg 1 tab day Unknown 00 - Unknown Estrace Hx Cream 0.1mg/GM use one Unknown 00 - applicato Unknown rful two times weekly Estrace Hx Cream 0.1mg/GM use one Unknown 00 - applicato 07/22/19 rful two 19 times weekly Florastor Hx Capsules 250mg 1 by Unknown 00 - mouth 08/27/19 daily 19 Medications Administered in Office Medication Date Status Form Strength Qnty SIG Indications Ordering Provider Depomedrol Administered Injection Alka 40MG 019 Noelle Bartlett Depomedrol Administered Injection Alka 40MG 019 Noelle Bartlett Celestone 3 mg Administered Injection Charlie and 3mg 016 Noelle Felton Depomedrol Administered Injection Anushka 80MG 015 RADHA Benitez Depomedrol Administered Injection Anushka 80MG 014 RADHA Benitez Inj, Administered Injection Kaz Sam Regadenoson, 014 Noelle Shelton 0.1 MG Technetium TC Administered Injection Kaz Sam 99M 014 Noelle Shelton Tetrofosmin, Per Unit Dose Up To 40 Millicuries Depomedrol Administered Injection Charlie 80MG 014 Noelle Felton Immunizations Description No Information Available Vital Signs Date Vital Result Comment 08/26/2018 9:41am Height 63 inches 5'3" Weight 117.00 lb with shoes Heart Rate 70 /min BP Systolic 174 mmHg rue reg cuff BP Diastolic 94 mmHg rue reg cuff BP Systolic Sitting 172 mmHg lue reg cuff BP Diastolic Sitting 82 mmHg lue reg cuff BP Systolic Standing 160 mmHg lue reg cuff BP Diastolic Standing 90 mmHg lue reg cuff Respiratory Rate 16 /min BMI (Body Mass Index) 20.7 kg/m2 Ejection Fraction 69% date 10/22/13 echo 08/08/2018 10:44am Height 62 inches 5'2" Weight 120.00 lb BP Systolic 156 mmHg BP Diastolic 88 mmHg Body Temperature 98.0 F BMI (Body Mass Index) 21.9 kg/m2 08/06/2018 8:55am Height 62 inches 5'2" Weight 120.00 lb Heart Rate 68 /min BP Systolic 120 mmHg BP Diastolic 80 mmHg Respiratory Rate 16 /min Body Temperature 97.1 F BMI (Body Mass Index) 21.9 kg/m2 07/23/2018 11:10am Height 62 inches 5'2" Weight 119.00 lb Heart Rate 64 /min BP Systolic 160 mmHg BP Diastolic 92 mmHg BMI (Body Mass Index) 21.8 kg/m2 04/24/2018 1:56pm Heart Rate 72 /min BP Systolic 150 mmHg BP Diastolic 84 mmHg Respiratory Rate 16 /min Body Temperature 99.5 F 01/27/2018 2:47pm Height 63 inches 5'3" Weight 122.00 lb Heart Rate 68 /min BP Systolic 134 mmHg BP Diastolic 70 mmHg Respiratory Rate 18 /min Body Temperature 99.0 F BMI (Body Mass Index) 21.6 kg/m2 11/19/2017 1:40pm Heart Rate 76 /min Respiratory Rate 16 /min Body Temperature 99.3 F 11/12/2017 1:28pm Height 63 inches 5'3" Weight 120.00 lb Heart Rate 84 /min BP Systolic Sitting 180 mmHg BP Diastolic Sitting 80 mmHg Respiratory Rate 18 /min Body Temperature 98.7 F BMI (Body Mass Index) 21.3 kg/m2 07/30/2016 10:59am Height 64 inches 5'4" Weight 120.00 lb Heart Rate 74 /min BP Systolic 140 mmHg BP Diastolic 73 mmHg Body Temperature 98.5 F BMI (Body Mass Index) 20.6 kg/m2 07/04/2016 9:01am Height 64 inches 5'4" Weight 120.00 lb Heart Rate 72 /min BP Systolic 150 mmHg BP Diastolic 83 mmHg Pain Level 3 BMI (Body Mass Index) 20.6 kg/m2 04/23/2016 10:53am Heart Rate 69 /min BP Systolic 172 mmHg BP Diastolic 83 mmHg Pain Level 2 03/30/2016 2:18pm Heart Rate 74 /min BP Systolic 171 mmHg BP Diastolic 78 mmHg Pain Level 6 03/12/2016 11:00am Height 64 inches 5'4" Weight 122.00 lb Heart Rate 59 /min BP Systolic 168 mmHg BP Diastolic 77 mmHg BMI (Body Mass Index) 20.9 kg/m2 02/22/2016 10:46am Height 64 inches 5'4" Weight 125.00 lb Pain Level 2 BMI (Body Mass Index) 21.5 kg/m2 02/08/2016 10:24am Height 64 inches 5'4" Weight 125.00 lb Pain Level 2 BMI (Body Mass Index) 21.5 kg/m2 01/18/2016 10:22am Height 64 inches 5'4" Weight 125.00 lb Pain Level 2 BMI (Body Mass Index) 21.5 kg/m2 01/04/2016 10:12am Height 64 inches 5'4" Weight 125.00 lb Heart Rate 60 /min Respiratory Rate 16 /min Pain Level 5 BMI (Body Mass Index) 21.5 kg/m2 12/14/2015 9:44am Height 64 inches 5'4" Weight 125.00 lb Heart Rate 60 /min Respiratory Rate 16 /min Pain Level 5 BMI (Body Mass Index) 21.5 kg/m2 11/30/2015 10:09am Height 64 inches 5'4" Weight 108.00 lb Heart Rate 72 /min Respiratory Rate 16 /min Pain Level 3 BMI (Body Mass Index) 18.5 kg/m2 11/17/2015 2:57pm Height 64 inches 5'4" Weight 108.00 lb Heart Rate 64 /min Respiratory Rate 16 /min Pain Level 6 BMI (Body Mass Index) 18.5 kg/m2 11/02/2015 8:03am Height 64 inches 5'4" Weight 108.00 lb Pain Level 3 BMI (Body Mass Index) 18.5 kg/m2 09/29/2015 9:43am Height 64 inches 5'4" Weight 108.00 lb Heart Rate 71 /min Body Temperature 98.4 F BMI (Body Mass Index) 18.5 kg/m2 09/08/2015 8:17am Height 64 inches 5'4" Weight 108.00 lb BMI (Body Mass Index) 18.5 kg/m2 06/22/2015 11:12am Height 64 inches 5'4" Weight 108.00 lb BMI (Body Mass Index) 18.5 kg/m2 03/02/2015 1:09pm Height 64 inches 5'4" Weight 108.00 lb Pain Level 1 BMI (Body Mass Index) 18.5 kg/m2 12/08/2014 2:27pm Height 64 inches 5'4" Weight 108.00 lb Pain Level 0 BMI (Body Mass Index) 18.5 kg/m2 10/08/2014 2:58pm Height 64 inches 5'4" Weight 108.00 lb Heart Rate 65 /min BP Systolic 115 mmHg BP Diastolic 80 mmHg Pain Level 2 BMI (Body Mass Index) 18.5 kg/m2 09/17/2014 11:43am Height 64 inches 5'4" Weight 108.00 lb Body Temperature 97.2 F Pain Level 0 BMI (Body Mass Index) 18.5 kg/m2 08/10/2014 1:50pm Height 64 inches 5'4" Heart Rate 72 /min BP Systolic 113 mmHg BP Diastolic 64 mmHg 06/29/2014 2:15pm Height 64 inches 5'4" Heart Rate 70 /min BP Systolic 157 mmHg BP Diastolic 80 mmHg 06/01/2014 10:29am Height 64 inches 5'4" Weight 130.00 lb Heart Rate 66 /min BP Systolic 162 mmHg BP Diastolic 89 mmHg BMI (Body Mass Index) 22.3 kg/m2 05/04/2014 8:12am Height 65 inches 5'5" Weight 129.00 lb Heart Rate 65 /min BP Systolic 173 mmHg BP Diastolic 82 mmHg BMI (Body Mass Index) 21.5 kg/m2 03/03/2014 11:26am Height 62.25 inches 5'2.25" Heart Rate 63 /min BP Systolic 160 mmHg BP Diastolic 94 mmHg 01/29/2014 11:09am Height 62.25 inches 5'2.25" Heart Rate 68 /min BP Systolic 161 mmHg BP Diastolic 96 mmHg 12/30/2013 11:39am Height 62.25 inches 5'2.25" Weight 131.00 lb Heart Rate 72 /min BP Systolic Sitting 160 mmHg LA reg cuff BP Diastolic Sitting 88 mmHg LA reg cuff BP Systolic Standing 164 mmHg LA BP Diastolic Standing 90 mmHg LA Respiratory Rate 12 /min BMI (Body Mass Index) 23.8 kg/m2 11/25/2013 11:09am Height 64 inches 5'4" Heart Rate 62 /min BP Systolic 175 mmHg BP Diastolic 80 mmHg 11/05/2013 9:14am Height 64 inches 5'4" Weight 130.00 lb no shoes Heart Rate 60 /min BP Systolic Sitting 130 mmHg LA, reg cuff BP Diastolic Sitting 88 mmHg LA, reg cuff BP Systolic Standing 132 mmHg LA BP Diastolic Standing 88 mmHg LA Respiratory Rate 16 /min BMI (Body Mass Index) 22.3 kg/m2 10/21/2013 8:28am Height 64 inches 5'4" Heart Rate 68 /min BP Systolic 159 mmHg BP Diastolic 87 mmHg 10/14/2013 11:22am Height 64 inches 5'4" Weight 130.00 lb no shoes Heart Rate 66 /min regular BP Systolic 208 mmHg Ra, sitting BP Diastolic 90 mmHg Ra, sitting BP Systolic Sitting 208 mmHg LA, sitting BP Diastolic Sitting 90 mmHg LA, sitting BP Systolic Standing 190 mmHg LA, standing BP Diastolic Standing 100 mmHg LA, standing Respiratory Rate 16 /min BMI (Body Mass Index) 22.3 kg/m2 Results Test Date Facility Test Result H/L Range Note Xray 07/23/2018 [facility] Inj/Aspir <pending> Major JT Or Bursa W/ US Poc Urinalysis 07/06/2018 [facility] Poc Glucose, Negative Negative [address] [place] [address] [phone] Poc Bilirubin, Urine Negative Negative Poc Ketone, Urine Negative Negative Poc Specific [place], Urine 1.020 N 1.010-1.030 Poc Blood, Urine 2+ Abnormal Negative Poc pH, Urine 7.0 N 5-9 Poc Protein, Urine Negative Negative Poc Urobilinogen, Urine 0.2 Negative Poc Nitrite, Urine Negative Negative Poc Leukocytes, Urine 2+ Abnormal Negative Poc Color, Urine Yellow Poc Clarity, Urine Slightly Cloudy 1 Poc Urinalysis 07/06/2018 [facility] Poc Glucose, Negative Negative [address] [place] [address] [phone] Poc Bilirubin, Urine Negative Negative 3 Poc Ketone, Urine Negative Negative 4 Poc Specific [place], Urine >=1.030 N 1.010-1.030 5 Poc Blood, Urine 2+ Negative 6 Poc pH, Urine 6.5 N 5-9 7 Poc Protein, Urine Negative Negative 8 Poc Urobilinogen, Urine 0.2 Negative 9 Poc Nitrite, Urine Negative Negative 10 Poc Leukocytes, Urine 2+ Negative 11 Poc Color, Urine Yellow 12 Poc Clarity, Urine Clear 13 Urine Culture And 07/06/2018 [facility] Urine Culture SEE RESULT 14, [address] [place] [address] [phone] Laboratory test 11/19/2017 [facility] Surgical SEE RESULT 16, [address] Pathology BELOW [place], [place] [id number] [phone] Laboratory test 11/12/2017 [facility] Cytology SEE RESULT [address] [employer] [place] [address] [phone] Surgical Pathology <pending> Urine Culture And 07/29/2016 [facility] Urine Culture SEE RESULT [address] [place] [address] [phone] Urinalysis Profile 07/29/2016 [facility] Urine Color Yellow N [address] [place] [address] [phone] Urine Appearance Clear N Urine Specific [place] 1.015 N 1.010-1.030 Urine pH 6.0 N 5-9 Urine Urobilinogen Negative N Negative Urine Ketones Negative N Negative Urine Protein Negative N Negative Urine Leukocytes Trace Abnormal Negative Urine Blood 1+ Abnormal Negative * * Abnormal Negative 20 Urine Nitrite Negative N Negative Urine Bilirubin Negative N Negative Urine Glucose Negative N Negative Urine White Blood Cell Trace(0-5/hpf) N Absent Urine Red Blood Cell Trace(0-2/hpf) N Absent Urine Bacteria Absent N Absent Urine Squamous Epithelial Cell Present Abnormal Absent Laboratory test 07/05/2016 [facility] Partial 30.7 N 26.0- 36.3 21, [address] [place] [address] Time PTT [phone] Comp Metabolic 07/05/2016 [facility] Sodium 138 mmol/L N 133- [address] [place], [place] [id number] [phone] Potassium 4.0 mmol/L N 3.5-5.0 Chloride 98 [...] 62.7 N >60 Egfr 80.7 N >60 23 CBC No Diff 07/05/2016 [facility] White Blood 19.6 10^3/uL High 3.5-10.[address] [place] [address] [phone] Red Blood Count 4.79 10^6/uL N 4.0-5.4 Hemoglobin 12.3 g/dL N 12.0-16.0 Hematocrit 38 % N 35-47 Mean Corpuscular Volume 80 fL N 80-97 Mean Corpuscular Hemoglobin 26 pg Low 27-31 Mean Corpuscular HGB Conc 32 g/dL N 31-36 Red Cell Distribution Width 17 % High 10.5-15 Platelet Count 218 10^3/uL N 150-450 Mean Platelet Volume 8 um3 N 7.4-10.4 Urinalysis Profile 07/05/2016 [facility] Urine Color Ana N [address] [place] [address] [phone] Urine Appearance Cloudy N Urine Specific [place] 1.021 N 1.010-1.030 Urine pH 5.0 N 5-9 Urine Urobilinogen Negative N Negative Urine Ketones Trace Abnormal Negative Urine Protein Negative N Negative Urine Leukocytes 3+ Abnormal Negative Urine Blood Negative N Negative * * Abnormal Negative 24 Urine Nitrite Negative N Negative Urine Bilirubin Negative N Negative Urine Glucose Negative N Negative Urine White Blood Cell 1+(6-10/hpf) Abnormal Absent Urine Red Blood Cell Absent N Absent Urine Bacteria Absent N Absent Urine Squamous Epithelial Cell Present Abnormal Absent Urine Hyaline Casts Present Abnormal Absent Urine Culture And 07/05/2016 [facility] Urine SEE RESULT [address] [place] [address] [phone] Inr/Protime 07/05/2016 [facility] Inr 0.94 N 0.89- [address] 1.11 [place] [address] [phone] Type & Screen 07/05/2016 [facility] Patient A Negative N [address] [place] [address] [phone] Antibody Screen NEGATIVE N CBC Auto 03/12/2016 [facility] White Blood 16.7 10^3/uL High 3.5-10.[address] [place] [address] [phone] Red Blood Count 4.43 10^6/uL N 4.0-5.4 Hemoglobin 11.5 g/dL Low 12.0-16.0 Hematocrit 35 % N 35-47 Mean Corpuscular Volume 80 fL N 80-97 Mean Corpuscular Hemoglobin 26 pg Low 27-31 Mean Corpuscular HGB Conc 33 g/dL N 31-36 Red Cell Distribution Width 17 % High 10.5-15 Platelet Count 219 10^3/uL N 150-450 Mean Platelet Volume 8 um3 N 7.4-10.4 Abs Neutrophils 4.2 10^3/uL N 1.5-7.7 Abs Lymphocytes 11.6 10^3/uL High 1.0-4.8 Abs Monocytes 0.6 10^3/uL N 0-0.8 Abs Eosinophils 0.1 10^3/uL N 0-0.6 Abs Basophils 0.2 10^3/uL N 0-0.2 Abs Nucleated RBC 0.03 10^3/uL N Granulocyte % 25.1 % Low 38-83 Lymphocyte % 69.5 % High 25-47 Monocyte % 3.4 % N 1-9 Eosinophil % 0.6 % N 0-6 Basophil % 1.4 % N 0-2 Nucleated Red Blood Cells % 0.2 N Laboratory test 03/12/2016 [facility] C Reactive 8.45 mg/L High < 5.[address] [place] [address] [phone] Erythrocyte Sed Rate 18 mm/Hr N 0-40 Laboratory test 01/28/2016 [facility] C Reactive 11.38 mg/L High < 5.[address] [place] [address] [phone] Erythrocyte Sed Rate 27 mm/Hr N 0-40 CBC Auto 01/28/2016 [facility] White Blood 22.6 10^3/uL High 3.5-10.[address] [place] [address] [phone] Red Blood Count 4.60 10^6/uL N 4.0-5.4 [...] Nucleated Red Blood Cells % 0.2 N Type & Screen 06/01/2014 [facility] Patient Blood Type A Negative N [address] [place] [address] [phone] Antibody Screen NEGATIVE N 1 Remelt Operator: [id number] Duplicate test, refer to [id number] for results. CORRECTED REPORT --- Corrected on 07/07/18843 --- POC Glu, Ur previously reported as: Negative 3 CORRECTED REPORT --- Corrected on 07/07/18843 --- POC Bili, Ur previously reported as: Negative 4 CORRECTED REPORT --- Corrected on 07/07/18843 --- POC Ket, Ur previously reported as: Negative 5 CORRECTED REPORT --- Corrected on 07/07/18843 --- POC SG, Ur previously reported as: >=1.030 6 CORRECTED REPORT --- Corrected on 07/07/18843 --- POC Blood, Ur previously reported as: 2+ An 7 CORRECTED REPORT --- Corrected on 07/07/18843 --- POC pH, Ur previously reported as: 6.5 8 CORRECTED REPORT --- Corrected on 07/07/18843 --- POC Protein, Ur previously reported as: Negative 9 CORRECTED REPORT --- Corrected on 07/07/18844 --- POC Urobili, Ur previously reported as: 0.2 10 CORRECTED REPORT --- Corrected on 07/07/18844 --- POC Nitrite, Ur previously reported as: Negative 11 CORRECTED REPORT --- Corrected on 07/07/18844 --- POC Leuko, Ur previously reported as: 2+ An 12 CORRECTED REPORT --- Corrected on 07/07/18844 --- POC Color, Ur previously reported as: Yellow 13 Remelt Operator: [id number] CORRECTED REPORT --- Corrected on 07/07/18844 --- POC Clarity, Ur previously reported as: Clear Remelt Operator: [id number] 15 SEE RESULT BELOW Name: GEORGIE FRANCO : [address]: Zaid Anderson MD Acct: [id number] Unit: [id number] AGE: 88 Location: [facility] Re07/06/18 SEX: F Status: DEP ER SPEC: [id number] LORIE: 07/06/18-[address] [facility] [address]: Zaid Anderson MD REQ: [id number] RECD: 07/06/18 STATUS: BETHANY KAM DR: Rocco Rios MD _ SOURCE: URINE SPDESC: ORDERED: Urine Culture COMMENTS: [id number] Procedure Result Reported Site Urine Culture Final 07/07/18- 1310 ML No growth of clinically significant organisms * - Main Lab . END OF REPORT DEPARTMENT OF PATHOLOGY, [address] [place] [address] Luís Smith M.D. Director [facility] # [id number] 16 [id number] 17 SEE RESULT BELOW Name: GEORGIE FRANCO : [address]: Brooke Diallo MD Acct: [id number] Unit: [id number] AGE: 87 Location: [facility] Re11/19/17 SEX: F Status: REG REF SPEC: [id number] LORIE: 11/19/17- [facility] DR: Brooke Diallo MD REQ: [id number] RECD: 11/19/17 STATUS: SOUT _ ORDERED: LEVEL 4 COMMENTS: [id number] FINAL DIAGNOSIS Breast, right, core biopsy: -- Benign breast tissue with atrophic features. See comment. -- No evidence of neoplasia identified. Comment: The biopsy demonstrates fragments of on remarkable breast parenchyma with atrophic features and accompanying fibroadipose tissue. No evidence of a neoplastic process is identified. Correlation with clinical and imaging findings is recommended. Additional studies as warranted. CLINICAL HISTORY No history given GROSS DESCRIPTION The specimen is received in formalin labeled, Right Breast Lump Core Biopsy, and consists of a 2.3 x 0.7 by up to 0.2 cm aggregate of yellow-white fibrofatty soft tissue cores which is filtered and entirely submitted in one cassette. Signed by and Reported on: Luís Smith MD 1331 END OF REPORT DEPARTMENT OF PATHOLOGY, [address] [place] [address] Luís Smith M.D. Director [facility] # [id number] 18 SEE RESULT BELOW Name: GEORGIE FRANCO : [address]: Brooke Diallo MD Acct: [id number] Unit: [id number] AGE: 87 Location: [facility] Re11/12/17 SEX: F Status: REG REF SPEC: [id number] LORIE: 11/12/17-[address] [facility] [address]: Brooke Diallo MD REQ: [id number] RECD: 11/12/17 STATUS: SHRUTI KAM DR: Sindhu Amaya MD _ ORDERED: [facility] COMMENTS: [id number] FINAL DIAGNOSIS Breast, right, fine needle aspiration: -- Fibroadipose tissue only. No ductal epithelium present. Correlation with clinical and imaging findings is recommended. Additional studies may be considered as warranted. A cell block was prepared in the evaluation of this specimen. Smears and cell block reveal similar findings. BREAST RIGHT - RIGHT BREAST MASS FINE NEEDLE ASPIRATION CLINICAL HISTORY Right breast mass. GROSS DESCRIPTION 2 Alcohol fixed slide(s) received from clinician and needle rinse in formalin for cell block. Signed by and Reported on: Luís Smith MD 11/25 1718 END OF REPORT DEPARTMENT OF PATHOLOGY, [address] [place] [address] Luís Smith M.D. Director [facility] # [id number] 19 SEE RESULT BELOW Name: SALVADORGEORGIE G : [address]: Cindy Matamoros MD Acct: [id number] Unit: [id number] AGE: 86 Location: [facility] Re07/29/16 SEX: F Status: REG REF SPEC: [id number] LORIE: 07/29/16-[address]: Cindy Matamoros MD REQ: [id number] RECD: 07/29/16-134 STATUS: COMP OTHR DR: Alka Bartlett MD Visiting Nurse Service _ SOURCE: URINE SPDESC: ORDERED: Urine Culture Procedure Result Reported Site Urine Culture Final 07/31/16- 1046 ML No growth of clinically significant organisms * ML - MAIN LAB ([facility]) . END OF REPORT * ML=Testing performed at Main Lab DEPARTMENT OF PATHOLOGY, [address], [place], [place] [address] uLís Smith M.D. Director [facility] # [id number] 20 *Ascorbic acid is present which may interfere with detection of blood. 21 AA 07/10 22 AA 07/10 23 Because ethnic data is not always readily [...] 15-29 5 Kidney failure <15 (or dialysis) 24 *Ascorbic acid is present which may interfere with detection of blood. 25 SEE RESULT BELOW Name: GEORGIE FRANCO : [address]: Alka Bartlett MD Acct: [id number] Unit: [id number] AGE: 86 Location: [facility] Re07/05/16 SEX: F Status: REG REF SPEC: [id number] LORIE: 07/05/[address] [facility] [address]: Alka Bartlett MD REQ: [id number] RECD: 07/05/16 STATUS: BETHANY KAM DR: Cindy Matamoros MD _ SOURCE: URINE SPDESC: ORDERED: Urine Culture COMMENTS: AA 07/10 QUERIES: Urine Source: Clean Catch Procedure Result Reported Site Urine Culture Final 07/06/16- 1327 ML No growth of clinically significant organisms * ML - MAIN LAB ([facility]) . END OF REPORT * ML=Testing performed at Main Lab DEPARTMENT OF PATHOLOGY, [address] [place] [address] Luís Smith M.D. Director [facility] # [id number] 26 Acute inflammation: >10.00 27 Acute inflammation: >10.00 28 OSTEOARTHROSIS UNSPECIFIED GENERALIZED OR LOCALIZE Procedures Date Code Description Status 08/26/2018 71275 EKG Tracing & Interpretation Completed 07/31/2018 78812397 Mammogram Completed 07/23/2018 40101 Inj/Aspir Major JT Or Bursa W/ US Completed 07/23/2018 64510 Inject/Drain Joint/Bursa Major W/O US Completed 11/19/2017 08174 Biopsy Breast Needle Core Completed 11/15/2017 [id number] Mammogram Completed 11/12/2017 27659 Fine Needle Aspiration; W/O Imaging Guidance Completed 07/08/2017 [id number] Mammogram Completed 07/10/2016 21792 Revise Total Hip Arthroplasty Femoral Component Only Completed 07/10/201620989 Revise Total Hip Arthroplasty Femoral Component Only Completed 12/05/2015 473445138 Bone Mineral Density Test Completed 11/02/2015 11803 Inject Tendon Sheath Or Ligament Aponeurosis Eg Completed Plantar Fascia 03/02/201549176 Inject/Drain Joint/Bursa Major W/O US Completed 07/05/201492707 Revise Total Hip Arthroplasty Femoral Component Only Completed 07/05/201419714 Revise Total Hip Arthroplasty Femoral Component Only Completed 07/05/2014 85807 FX TX Inter/Ele Or Sub Chanteric Femoral FX Completed W/Implant 07/05/2014 95823 FX TX Inter/Ele Or Sub Chanteric Femoral FX Completed W/Implant 07/05/2014 89561 FX TX Inter/Ele Or Sub Chanteric Femoral FX Completed W/Implant 07/05/2014 30934 FX TX Inter/Ele Or Sub Chanteric Femoral FX Completed W/Implant 07/05/201497144 Revise Total Hip Arthroplasty Femoral Component Only Completed 07/05/2014 79707 Revise Total Hip Arthroplasty Femoral Component Only Completed 06/29/2014 39483 Rad Exam; Hip Unilat Completed 06/29/2014 03491 Rad Exam; Hip Unilat Completed 06/29/2014 52739 Rad Exam; Hip Unilat Completed 06/29/2014 05950 Rad Exam; Pelvis Completed 06/29/2014 66902 Rad Exam; Pelvis Completed 06/29/2014 29515 Rad Exam; Pelvis Completed 06/14/2014 02797 THR Total Hip Replacement Completed 06/14/2014 72138 THR Total Hip Replacement Completed 05/04/2014 45736 Xray Knee 3 Views Completed 05/04/2014 50514 Xray Knee 3 Views Completed 05/04/201408001 Inject/Drain Joint/Bursa Major W/O US Completed 05/04/2014 73018 Rad Exam; Knee, Ap&L Completed 05/04/2014 85939 Rad Exam; Knee, Ap&L Completed 01/29/2014 06651 Rad Exam; Pelvis Completed 01/29/2014 23758 Rad Exam; Hip Unilat Completed 10/28/2013 79888 Stress Test Completed 10/28/2013 25455 Myocardial Perfusion Imaging Tomographic (Spect) Completed Multiple Studies 10/22/2013 85587 ECHO Transthoracic, Real-Time 2D With Doppler And Completed Color Flow 08/12/201320977 Inject/Drain Joint/Bursa Major W/O US Completed 08/12/2013 57197 Injection Single Tendon Origin/Insertion Completed 04/23/2013 16774 Rad Shoulder Comp, Min. 2 Views Completed 10/29/2012 41698 Rad Exam; Hip Unilat Completed 10/29/2012 36018 Rad Exam; Pelvis Completed Encounters Type Date Location Provider Dx Diagnosis Office Visit 08/08/2018 Orthopedic Alka Bartlett, M25.552 Pain in left hip 10:45a [facility] M.[facility]. M16.12 Unilateral primary osteoarthritis, left hip Office Visit 07/23/2018 11:00a Orthopedic Alka Bartlett, Z96.641 Presence of right Services [facility] M.D. artificial hip [facility] joint M25.562 Pain in left knee M25.462 Effusion, left knee M17.12 Unilateral primary osteoarthritis, left knee M25.552 Pain in left hip M16.12 Unilateral primary osteoarthritis, left hip M79.651 Pain in right thigh Office Visit 04/24/2018 Surgical Brooke Cross N64.59 Other signs and 2:15p [facility] Alis Diallo MD symptoms in breast Office Visit 11/12/2017 Sowmya Cross N64.59 Other signs and 1:00p [facility] Al[facility] Diallo MD symptoms in breast Office Visit 07/13/2016 [facility] Z96.649 Presence of 12:47p Assoc,pc [facility] unspecified Hospitalists [place] artificial hip joint I10 Essential (primary) hypertension Z86.718 Personal history of other venous thrombosis and embolism Z86.19 Personal history of other infectious and parasitic diseases Office 07/12/2016 [facility] I10 Essential Visit 12:46p Assoc,[facility] [place] (primary) Hospitalists hypertension Z96.649 Presence of unspecified artificial hip joint Z86.718 Personal history of other venous thrombosis and embolism Z86.19 Personal history of other infectious and parasitic diseases Office 07/11/2016 [facility] I10 Essential Visit 12:45p Assoc,[facility] [place] (primary) Hospitalists hypertension Z96.649 Presence of unspecified artificial hip joint Z86.718 Personal history of other venous thrombosis and embolism Z86.19 Personal history of other infectious and parasitic diseases Office 07/10/2016 [facility] Z96.649 Presence of Visit 12:44p Assoc,[facility] [place] unspecified Hospitalists artificial hip joint I10 Essential (primary) hypertension Z86.718 Personal history of other venous thrombosis and embolism Z86.19 Personal history of other infectious and parasitic diseases Office Visit 04/23/2016 11:00a Orthopedic Alka Bartlett, Z96.641 Presence of right Services [facility] M.D. artificial hip [facility] 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 syndrome, right [facility] 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 syndrome, right [facility] leg M84.351S Stress fracture, right femur, sequela Z96.641 Presence of right artificial hip joint T84.050A Periprosth osteolysis of internal prosthetic r hip jt, init Office Visit 02/22/2016 10:30a Orthopedic Suzy Grant76.31 Iliotibial band [facility] M.D. syndrome, right [facility] leg Office Visit 02/08/2016 10:15a Orthopedic Charlie Felton, M76.11 Psoas Services [facility] M.D. tendinitis, [facility] right hip M76.31 Iliotibial band syndrome, right leg Office Visit 01/18/2016 10:15a [facility] Charlie Felton, M76.31 Iliotibial band Services [facility] M.D. syndrome, right [facility] leg M84.351D Stress fracture, right femur, subs for fx w routn heal Office Visit 01/04/2016 10:15a Orthopedic Charlie M84.351D Stress [facility] Noelle Felton fracture, right C.M.A. femur, subs for fx w routn heal M76.31 Iliotibial band syndrome, right leg Office Visit 12/14/2015 9:45a Orthopedic Charlie M84.351D Stress fracture, [facility] Noelle Felton right femur, C.M.A. subs for fx w routn heal Office Visit 11/30/2015 10:15a Orthopedic Charlie Suzy84.351D Stress fracture, [facility] No[facility] Fel[facility] right femur, C.M.A. subs for fx w routn heal Office Visit 11/17/2015 3:00p Oscar Guerra M84.351D Stress fracture, [facility] right femur, [facility]. subs for fx w routn heal Office Visit 11/02/2015 8:00a Oscar Guerra S76.101D Unsp injury of [facility] Noelle Felton right quadriceps [facility]. musc/fasc/tend, subs M61.451 Other calcification of muscle, right thigh Office Visit 09/29/2015 Orthopedic Charlie S76.101D Unsp injury of right 9:45a [facility] Noelle Felton quadriceps [facility]. musc/fasc/tend, subs M61.451 Other calcification of muscle, right thigh Office Visit 09/08/2015 Orthopedic Charlie S76.101A Unsp injury of right 8:15a [facility] Noelle Felton quadriceps C.M.A. musc/fasc/tend, init M61.451 Other calcification of muscle, right thigh Z96.641 Presence of right artificial hip joint Office Visit 06/22/2015 11:15a Orthopedic Charlie M70.62 Trochanteric [facility] Noelle Felton bursitis, left hip [facility] M11.261 Other chondrocalcinosis, right knee M11.262 Other chondrocalcinosis, left knee Z96.641 Presence of right artificial hip joint Office Visit 12/08/2014 Orthopedic Charlie 715.95 Osteoarthrosis 2:30p [facility] Noelle Felton Unspec Genlzd Or [facility]. Localized Pelvic & Thigh V43.64 Hip Replacement By Other Means Office Visit 10/08/2014 3:00p Orthopedic Ry 838.00 Dislocation Foot Services Of Noelle Rae Closed Unspec C.M.A. 453.6 Venous Embolism&Thrombosis,Superficial Vessels Lower Extremi V58.61 Anticoagulants Correction (Current) Use Encounter Office Visit 08/20/2014 [facility] 453.40 Acute Venous Embolism 9:51a marguerite Burris M.D. 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 Localized Pelvic & Thigh 715.36 Osteoarthrosis Localzd Not Spec Prime Or 2Ndy Lower Leg Office Visit 03/03/2014 Orthopedic Charlie 715.95 Osteoarthrosis 11:45a [facility] Noelle Felton Unspec Genlzd Or C.M.A. Localized Pelvic & Thigh Office Visit 01/29/2014 Orthopedic Charlie 715.95 Osteoarthrosis 11:30a [facility] Noelle Felton Unspec Genlzd Or C.M.A. Localized Pelvic & Thigh Office Visit 12/30/2013 Eulogio Sam 786.05 Shortness Of Breath 11:30a Cardiology Of Noelle Shelton Cma Office Visit 11/25/2013 Orthopedic Charlie 715.95 Osteoarthrosis 11:30a [facility] Of Noelle Felton Unspec Genlzd Or C.M.A. Localized Pelvic & Thigh Office Visit 11/05/2013 Eulogio Sam 786.05 Shortness Of Breath 9:15a [facility] Noelle Shelton [place] 786.50 Pain Chest Unspec Office Visit 10/21/2013 8:30a Orthopedic Charlie 726.5 Enthesopathy Of Services Of Noelle Felton Hip Region C.M.A. Office Visit 10/14/2013 11:00a Eulogio Sam 786.05 Shortness Of Cardiology Of Noelle Shelton Breath [place] 786.50 Pain Chest Unspec Office Visit 08/12/2013 Orthopedic Charlie 726.12 Tenosynovitis 11:45a Services Of Noelle Felton Bicipital C.M.A. 726.5 Enthesopathy Of Hip Region Office Visit 04/23/2013 Orthopedic Cahrlie 726.12 Tenosynovitis 3:45p Services Of Noelle Felton Bicipital C.M.A. Office Visit 10/29/2012 Orthopedic Charlie 726.5 Enthesopathy Of Hip 2:00p Services Of Noelle Felton [facility]A. Plan of Treatment Future Appointment(s):09/16/2018 9:30 am - Alka Bartlett M.D. at [facility]09/08/2018 9:00 am - Alka Bartlett M.D. at [facility]08/06/2018 - JESSICA Kaminski64.59 Other signs and symptoms in breastFollow up:6 months
--- OUTSIDE RECORDS SUMMARY | 2018-09-16 12:21 | XMS REPORT | Continuity of Care Document ---
:1930 External Reference #:[id number] Author Name Elin Johnson Care Team Providers Name Role Phone Rocco Rios MD Primary Care Physician Unavailable Payers Date Identification Numbers Payment Provider Subscriber Effective: 1996 Policy Number: [id number] Medicare Georgie Franco PayID: [id number] [address] [place] [address] Policy Number: [id number] [facility] Georgie Franco PayID: [id number] [address] [place] [address] Advance Directives Description No Information Available Problems [...] Use Never Used Drugs Smoking Status Reviewed: 09/08/18 Patient is a former Quit 40 years [...] 6 hours as needed pain Tylenol With 05/31/20 Hx Tablets 300-30mg 42tab one to 2 [...] Charlie 14 - s mouth Jose Francisco, 01/31/20 every day M.D. 15 Mobic 11/26/19 Hx [...] Available Vital Signs Date Vital Result Comment 09/08/2018 8:56am Height 62 inches 5'2" Weight 121.00 lb Heart Rate 64 /min BP Systolic 164 mmHg BP Diastolic 84 mmHg Pain Level 5 BMI (Body Mass Index) 22.1 kg/m2 08/26/2018 9:41am Height 63 inches 5'3" Weight [...] Test Result H/L Range Note Xray 07/23/2018 [facility] In House Inj/Aspir <pending> Major JT Or Bursa W/ US Poc Urinalysis 07/06/2018 [facility] Poc Glucose, Negative Negative [address] [place] [address] [phone] Poc Bilirubin, Urine Negative Negative Poc Ketone, Urine Negative Negative Poc Specific [place], Urine 1.020 N 1.010-1.030 Poc Blood, Urine 2+ Abnormal Negative Poc pH, Urine 7.0 N 5-9 Poc Protein, Urine Negative Negative Poc Urobilinogen, Urine 0.2 Negative Poc Nitrite, Urine Negative Negative Poc Leukocytes, Urine 2+ Abnormal Negative Poc Color, Urine Yellow Poc Clarity, Urine Slightly Cloudy 1 Poc Urinalysis 07/06/2018 [facility] Poc Glucose, Negative Negative [address] Urine [place], [place] [id number] [phone] Poc Bilirubin, Urine Negative Negative 3 Poc Ketone, Urine Negative Negative 4 Poc Specific [place], Urine >=1.030 N 1.010-1.030 5 Poc Blood, Urine 2+ Negative 6 Poc pH, Urine 6.5 N 5-9 7 Poc Protein, Urine Negative Negative 8 Poc Urobilinogen, Urine 0.2 Negative 9 Poc Nitrite, Urine Negative Negative 10 Poc Leukocytes, Urine 2+ Negative 11 Poc Color, Urine Yellow 12 Poc Clarity, Urine Clear 13 Urine Culture And 07/06/2018 [facility] Urine Culture SEE RESULT 14, [address] [place] [address] [phone] Laboratory test 11/19/2017 [facility] Surgical SEE RESULT 16, [address] [place] [address] [phone] Laboratory test 11/12/2017 [facility] Cytology SEE RESULT [address] Non-Assistive Technology Trainer BELOW [place], [place] [id number] [phone] Surgical Pathology <pending> Urine Culture And 07/29/2016 [facility] Urine Culture SEE RESULT [address] BEL[place], [place] [address] [phone] Urinalysis Profile 07/29/2016 [facility] Urine Color Yellow N [address] [place], [place] [address] [phone] Urine Appearance Clear N Urine Specific [place] 1.015 N 1.010-1.030 Urine pH 6.0 N [...] Cell Present Abnormal Absent Laboratory test 07/05/2016 [facility] Partial 30.7 N 26.0- 36.3 21, [address] [address] Time PTT [phone] Comp Metabolic 07/05/2016 [facility] Sodium 138 mmol/L N 133- [address] [place] [address] [phone] Potassium 4.0 mmol/L N 3.5-5.0 Chloride 98 [...] N >60 23 CBC No Diff 07/05/2016 [facility] White Blood 19.6 10^3/uL High 3.5-10.[address] [place] [address] [phone] Red Blood Count 4.79 10^6/uL N 4.0-5.4 Hemoglobin 12.3 g/dL N 12.0-16.0 Hematocrit 38 % N 35-47 Mean Corpuscular Volume 80 fL N 80-97 Mean Corpuscular Hemoglobin 26 pg Low 27-31 Mean Corpuscular HGB Conc 32 g/dL N 31-36 Red Cell Distribution Width 17 % High 10.5-15 Platelet Count 218 10^3/uL N 150-450 Mean Platelet Volume 8 um3 N 7.4-10.4 Urinalysis Profile 07/05/2016 [facility] Urine Color Ana N [address] [place] [address] [phone] Urine Appearance Cloudy N Urine Specific [place] 1.021 N 1.010-1.030 Urine pH 5.0 N [...] Present Abnormal Absent Urine Culture And 07/05/2016 [facility] Urine SEE RESULT [address] [place] [address] [phone] Inr/Protime 07/05/2016 [facility] Inr 0.94 N 0.89- [address] 1.11 [place] [address] [phone] Type & Screen 07/05/2016 [facility] Patient A Negative N [address] [place] [address] [phone] Antibody Screen NEGATIVE N CBC Auto 03/12/2016 [facility] White Blood 16.7 10^3/uL High 3.5-10.[address] [place] [address] [phone] Red Blood Count 4.43 10^6/uL N 4.0-5.4 [...] Cells % 0.2 N Laboratory test 03/12/2016 [facility] C Reactive 8.45 mg/L High < 5.[address] [place] [address] [phone] Erythrocyte Sed Rate 18 mm/Hr N 0-40 Laboratory test 01/28/2016 [facility] C Reactive 11.38 mg/L High < 5.[address] [place] [address] [phone] Erythrocyte Sed Rate 27 mm/Hr N 0-40 CBC Auto 01/28/2016 [facility] White Blood 22.6 10^3/uL High 3.5-10.[address] [place] [address] [phone] Red Blood Count 4.60 10^6/uL N 4.0-5.4 [...] % 0.2 N Type & Screen 06/01/2014 [facility] Patient Blood Type A Negative N [address] [place] [address] [phone] Antibody Screen NEGATIVE N 1 Permastone Mechanic: [id number] Duplicate test, refer to 0127:PC36 for [...] Color, Ur previously reported as: Yellow 13 Permastone Mechanic: [id number] CORRECTED REPORT --- Corrected on 07/07/18844 --- POC Clarity, Ur previously reported as: Clear Permastone Mechanic: [id number] 15 SEE RESULT BELOW Name: GEORGIE FRANCO : [address]: Zaid Anderson MD Acct: [id number] Unit: [id number] AGE: 88 Location: [facility] [place] Re07/06/18 SEX: F Status: DEP ER SPEC: [id number] LORIE: 07/06/[address]: Zaid Anderson MD REQ: [id number] RECD: 07/06/183019 STATUS: BETHANY KAM DR: Rocco Rios MD _ SOURCE: URINE SPDESC: ORDERED: Urine Culture COMMENTS: [id number] Procedure Result Reported Site Urine Culture Final 07/07/18- 1310 ML No growth of clinically significant organisms * ML - Main Lab . END OF REPORT DEPARTMENT OF PATHOLOGY, [address] [place] [address] Luís Smith M.D. Director [facility] # [id number] 16 [id number] 17 SEE RESULT BELOW Name: GEORGIE FRANCO Niya : [address]: Brooke Diallo MD Acct: [id number] Unit: [id number] AGE: 87 Location: [facility] Re11/19/17 SEX: F Status: REG REF SPEC: [id number] LORIE: 11/19/17- SUBM DR: Brooke Diallo MD REQ: [id number] RECD: 11/19/17 STATUS: SOUT _ ORDERED: LEVEL 4 COMMENTS: [id number] FINAL DIAGNOSIS Breast, right, core biopsy: -- [...] 1331 END OF REPORT DEPARTMENT OF PATHOLOGY, [address] [place] [address] Luís Smith M.D. Director [facility] # [id number] 18 SEE RESULT BELOW Name: GEORGIE FRANCO : [address]: Brooke Diallo MD Acct: [id number] Unit: [id number] AGE: 87 Location: [facility] Re11/12/17 SEX: F Status: REG REF SPEC: [id number] LORIE: 11/12/17-[address] [facility] [address]: Brooke Diallo MD REQ: [id number] RECD: 11/12/17 STATUS: SHRUTI KAM DR: Sindhu Amaya MD _ ORDERED: FNA INTERP [facility] COMMENTS: [id number] FINAL DIAGNOSIS Breast, right, fine needle aspiration: [...] and Reported on: Luís Smith MD 11/25 1712 END OF REPORT DEPARTMENT OF PATHOLOGY, [address] [place] [address] Luís Smith M.D. Director [facility] # [id number] 19 SEE RESULT BELOW Name: GEORGIE FRANCO : [address]: Cindy Matamoros MD Acct: [id number] Unit: [id number] AGE: 86 Location: [facility] Re07/29/16 SEX: F Status: REG REF SPEC: [id number] LORIE: 07/29/16-[address] [facility] [address]: Cindy Matamoros MD REQ: [id number] RECD: 07/29/16-134 STATUS: BETHANY KAM DR: Alka Bartlett MD Visiting Nurse Service _ SOURCE: URINE SPDESC: ORDERED: Urine Culture Procedure Result Reported Site Urine Culture Final 07/31/16- 1046 ML No growth of clinically significant organisms * ML - MAIN LAB ([facility]) . END OF REPORT * ML=Testing performed at Main Lab DEPARTMENT OF PATHOLOGY, [address] [place] [address] Luís Smith M.D. Director [facility] # [id number] 20 *Ascorbic acid is present which may [...] [address]: Alka Bartlett MD Acct: [id number] Unit: [id number] AGE: 86 Location: [facility] Re07/05/16 SEX: F Status: REG REF SPEC: [id number] LORIE: 07/05/[address] [facility] [address]: Alka Bartlett MD REQ: [id number] RECD: 07/05/16 STATUS: COMP OTHR DR: Cindy Matamoros MD _ SOURCE: URINE SPDESC: ORDERED: Urine Culture COMMENTS: AA 07/10 QUERIES: Urine Source: Clean Catch Procedure Result Reported Site Urine Culture Final 07/06/16- 1327 ML No growth of clinically significant organisms * ML - MAIN LAB ([facility]) . END OF REPORT * ML=Testing performed at Main Lab DEPARTMENT OF PATHOLOGY, [address] [place] [address] Luís Smith M.D. Director [facility] # [id number] 26 Acute inflammation: >10.00 27 Acute inflammation: >10.00 28 OSTEOARTHROSIS UNSPECIFIED GENERALIZED OR LOCALIZE Procedures Date Code Description Status 08/26/2018 93899 EKG Tracing & Interpretation Completed 07/31/2018 81124090 Mammogram Completed 07/23/2018 89621 Inj/Aspir Major JT Or Bursa W/ US Completed 07/23/201877220 Inject/Drain Joint/Bursa Major W/O US Completed 11/19/2017 16709 Biopsy Breast Needle Core Completed 11/15/2017 44908706 Mammogram Completed 11/12/2017 17474 Fine Needle Aspiration; W/O Imaging Guidance Completed 07/08/2017 66712673 Mammogram Completed 07/10/201643748 Revise Total Hip Arthroplasty Femoral Component Only Completed 07/10/201660992 Revise Total Hip Arthroplasty Femoral Component Only Completed 12/05/2015 568631376 Bone Mineral Density Test Completed 11/02/2015 33682 Inject Tendon Sheath Or Ligament Aponeurosis Eg Completed Plantar Fascia 03/02/201528665 Inject/Drain Joint/Bursa Major W/O US Completed 07/05/201471833 Revise Total Hip Arthroplasty Femoral Component Only Completed 07/05/201457679 Revise Total Hip Arthroplasty Femoral Component Only Completed 07/05/2014 74365 FX TX Inter/Ele Or Sub Chanteric Femoral FX Completed W/Implant 07/05/2014 96514 FX TX Inter/Ele Or Sub Chanteric Femoral FX Completed W/Implant 07/05/2014 85229 FX TX Inter/Ele Or Sub Chanteric Femoral FX Completed W/Implant 07/05/2014 00780 FX TX Inter/Ele Or Sub Chanteric Femoral FX Completed W/Implant 07/05/201451640 Revise Total Hip Arthroplasty Femoral Component Only Completed 07/05/2014 59649 Revise Total Hip Arthroplasty Femoral Component Only Completed 06/29/2014 72610 Rad Exam; Hip Unilat Completed 06/29/2014 11895 Rad Exam; Hip Unilat Completed 06/29/2014 00205 Rad Exam; Hip Unilat Completed 06/29/2014 83659 Rad Exam; Pelvis Completed 06/29/2014 42448 Rad Exam; Pelvis Completed 06/29/2014 45489 Rad Exam; Pelvis Completed 06/14/2014 27010 THR Total Hip Replacement Completed 06/14/2014 27325 THR Total Hip Replacement Completed 05/04/2014 42255 Xray Knee 3 Views Completed 05/04/2014 34119 Xray Knee 3 Views Completed 05/04/201488971 Inject/Drain Joint/Bursa Major W/O US Completed 05/04/2014 47589 Rad Exam; Knee, Ap&L Completed 05/04/2014 26559 Rad Exam; Knee, Ap&L Completed 01/29/2014 00080 Rad Exam; Pelvis Completed 01/29/2014 36381 Rad Exam; Hip Unilat Completed 10/28/2013 48231 Stress Test Completed 10/28/2013 15344 Myocardial Perfusion Imaging Tomographic (Spect) Completed Multiple Studies 10/22/2013 44032 ECHO Transthoracic, Real-Time 2D With Doppler And Completed Color Flow 08/12/201351682 Inject/Drain Joint/Bursa Major W/O US Completed 08/12/201388165 Injection Single Tendon Origin/Insertion Completed 04/23/2013 96196 Rad Shoulder Comp, Min. 2 Views Completed 10/29/2012 46113 Rad Exam; Hip Unilat Completed 10/29/2012 74011 Rad Exam; Pelvis Completed Encounters Type Date Location Provider Dx Diagnosis Office Visit 08/26/2018 [facility] Boris Fernandez Z01.810 Encounter for 10:15a Of Alis Peres DO [facility] preprocedural cardiovascular examination Z86.718 Personal history of other venous thrombosis and embolism I10 Essential (primary) hypertension M17.12 Unilateral primary osteoarthritis, left knee Office Visit 08/08/2018 10:45a Orthopedic Services Alka Bartlett M25.552 Pain in left Of C.M.A. M.D. hip M16.12 Unilateral primary osteoarthritis, left hip Office Visit 08/06/2018 9:15a Surgical Brooke Aty N64.59 Other signs and Associates Of Alis Diallo MD symptoms in breast Office Visit 07/23/2018 11:00a Orthopedic Alka Bartlett, Z96.641 Presence of Services Of M.D. right artificial C.M.A. hip joint M25.562 Pain in left knee M25.462 Effusion, left knee M17.12 Unilateral primary osteoarthritis, left knee M25.552 Pain in left hip M16.12 Unilateral primary osteoarthritis, left hip M79.651 Pain in right thigh Office Visit 04/24/2018 [facility] [place] N64.59 Other signs and 2:15p Associates Of Alis Diallo MD symptoms in breast Office Visit 11/12/2017 Surgical [facility] Cross N64.59 Other signs and 1:00p Associates Of Alis Diallo MD symptoms in breast Office Visit 07/13/2016 [facility] Z96.649 Presence of 12:47p Assoc,marguerite Iqbal unspecified Hospitalists [place], [place] artificial hip joint I10 Essential (primary) hypertension Z86.718 Personal history of other venous thrombosis and embolism Z86.19 Personal history of other infectious and parasitic diseases Office 07/12/2016 [facility] I10 Essential Visit 12:46p Assoc,marguerite [place], [place] (primary) Hospitalists hypertension Z96.649 Presence of unspecified artificial hip joint Z86.718 Personal history of other venous thrombosis and embolism Z86.19 Personal history of other infectious and parasitic diseases Office 07/11/2016 [place] 932210 Essential Visit 12:45p Assoc,marguerite [place], [place] (primary) Hospitalists hypertension Z96.649 Presence of unspecified artificial hip joint Z86.718 Personal history of other venous thrombosis and embolism Z86.19 Personal history of other infectious and parasitic diseases Office 07/10/2016 [facility] Z96.649 Presence of Visit 12:44p Assoc,marguerite [place], [place] unspecified Hospitalists artificial hip joint I10 Essential [...] in right hip Office Visit 03/30/2016 2:30p Orthopedic Alka Bartlett, M76.31 Iliotibial band Services Of M.D. syndrome, right C.M.A. 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 syndrome, right C.M.A. leg M84.351S Stress fracture, right femur, sequela Z96.641 Presence of right artificial hip joint T84.050A Periprosth osteolysis of internal prosthetic r hip jt, init Office Visit 02/22/2016 10:30a Orthopedic Suzy Grant76.31 Iliotibial band Services Of M.D. syndrome, right C.M.A. leg Office Visit 02/08/2016 10:15a Orthopedic Inocencio Grant.11 Psoas Services Of M.D. tendinitis, C.M.A. right hip M76.31 Iliotibial band syndrome, right leg Office Visit 01/18/2016 10:15a Orthopedic Inocencio Grant.31 Iliotibial band Services Of M.D. syndrome, right C.M.A. leg M84.351D Stress fracture, right femur, subs for fx w routn heal Office Visit 01/04/2016 10:15a Oscar Guerra M84.351D Stress Services Of Noelle Felton fracture, right C.M.A. femur, subs for fx w routn heal M76.31 Iliotibial band syndrome, right leg Office Visit 12/14/2015 9:45a Oscar Guerra M84.351D Stress fracture, Services Of Noelle Felton right femur, C.M.A. subs for fx w routn heal Office Visit 11/30/2015 10:15a Oscar Guerra M84.351D Stress fracture, Services Of Noelle Felton right femur, C.M.A. subs for fx w routn heal Office Visit 11/17/2015 3:00p Oscar Guerra M84.351D Stress fracture, Services Of Noelle Felton right femur, C.M.A. subs for fx w routn heal Office Visit 11/02/2015 8:00a Orthopedic Charlie S76.101D Unsp injury of Services Of Noelle [...] Venous Embolism&Thrombosis,Superficial Vessels Lower Extremi V58.61 Anticoagulants Long-Term (Current) Use [facility]ous Embolism 9:51a marguerite Burris M.D. 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 Localized Pelvic & Thigh 715.36 Osteoarthrosis Localzd Not Spec Prime Or 2Ndy Lower Leg Office Visit 03/03/2014 Oscar Guerra 715.95 Osteoarthrosis 11:45a Services Of Noelle Felton Unspec Genlzd Or C.M.A. Localized Pelvic & Thigh Office Visit 01/29/2014 Orthopedic Charlie 715.95 Osteoarthrosis 11:30a Services Of Noelle Felton Unspec Genlzd Or C.M.A. Localized Pelvic & Thigh Office Visit 12/30/2013 [facility] Sam 786.05 Shortness Of Breath 11:30a Cardiology Of Noelle Shelton Occupational Health And Safety Adviser Office Visit 11/25/2013 [facility] Charlie 715.95 Osteoarthrosis 11:30a Services Of Noelle Felton Unspec Genlzd Or C.M.A. Localized Pelvic & Thigh Office Visit 11/05/2013 [place] Kaz D. 786.05 Shortness Of Breath 9:15a Cardiology Of Noelle Shelton Occupational Health And Safety Adviser 786.50 Pain Chest Unspec Office Visit 10/21/2013 8:30a Orthopedic Charlie 726.5 Enthesopathy Of Services Of Noelle Felton Hip Region C.M.A. Office Visit 10/14/2013 11:00a Eulogio Sam 786.05 Shortness Of Cardiology Of Noelle Shelton Breath Occupational Health And Safety Adviser 786.50 Pain Chest Unspec Office Visit 08/12/2013 Orthopedic Charlie 726.12 Tenosynovitis 11:45a Services Of Noelle Felton Bicipital C.M.A. 726.5 Enthesopathy Of Hip Region Office Visit 04/23/2013 Orthopedic Charlie 726.12 Tenosynovitis 3:45p Services Of Noelle Felton Bicipital C.M.A. Office Visit 10/29/2012 Orthopedic Charlie 726.5 Enthesopathy Of Hip 2:00p Services Of Noelle Felton Region C.M.A. Plan of Treatment Future Appointment(s):09/26/2018 1:30 pm - Alka Bartlett M.D. at [facility]09/16/2018 2:30 pm - MAURO Summers at [facility]09/16/2018 2:30 pm - GRZEGOZR Barnes at [facility]09/16/2018 2:30 pm - Alka Bartlett M.D. at [facility]09/08/2018 - Alka Bartlett M.D.M25.552 Pain in left hipFollow up:Follow up: 2 weeks after phuejqjB67.12 Unilateral primary osteoarthritis, left hip
[2018-09-16] MEDS ORDERED: Clindamycin 900 MG IVPREMIX(* 900 MG/50 ML SDV IV ONE (12:45)
[2018-09-16] MEDS ORDERED: fentaNYL* 50 MCG/ML 2 ML VIAL (100 MCG VIAL) ONE (14:11)
[2018-09-16] MEDS ORDERED: Midazolam* 1 MG/ML 2 ML VIAL (2 MG) ONE (14:11)
[2018-09-16] MEDS ORDERED: ROPIVACAINE 5 MG/ML 30 ML BTL (0.5%) ONE (14:54)
[2018-09-16] MEDS ORDERED: Bupivacaine 0.5%* 50 ML VIAL ONE (14:56)
[2018-09-16] MEDS ORDERED: Propofol* 10 MG/ML 20 ML BTL ONE ×3 (15:52→18:08)
[2018-09-16] MEDS ORDERED: Naloxone* 0.4 MG/ML 1 ML VIAL IV PRN (16:07)
[2018-09-16] MEDS ORDERED: Acetaminophen TAB* 325 MG PO PRN (16:07)
[2018-09-16] MEDS ORDERED: HYDROmorphone INJ1* 1 MG/ML SYRINGE IV PRN (16:07)
[2018-09-16] MEDS ORDERED: Bupivacaine 0.5% SDV PF* 30ML VIAL ONE (16:42)
[2018-09-16] MEDS ORDERED: EPHEDrine (Pressors)* 50 MG/ML VIAL ONE (16:47)
[2018-09-16] MEDS ORDERED: Polyethylene Glycol 3350* 17 GM PACKET PO PRN (18:24)
[2018-09-16] MEDS ORDERED: diPHENhydraMINE PO* 25 MG PO PRN (18:24)
[2018-09-16] MEDS ORDERED: oxyCODONE TAB* 5 MG TAB PO PRN (18:24)
[2018-09-16] MEDS ORDERED: Ondansetron INJ* 2 MG/ML VIAL IV PRN (18:24)
[2018-09-16] MEDS ORDERED: Magnesium Hydroxide LIQ* 30 ML UDC PO PRN (18:24)
[2018-09-16] MEDS ORDERED: Cyclobenzaprine TAB* 10 MG PO PRN (18:24)
[2018-09-16] MEDS ORDERED: diPHENhydraMINE IV* 50 MG/ML 1 ml VIAL (BENADRYL) IV PRN (18:24)
[2018-09-16] MEDS ORDERED: Morphine INJ* 2 MG/ML 1 ML SYRINGE (TWO MG - NEW SYRINGE VERSION) IV PRN (18:24)
[2018-09-16] MEDS ORDERED: Bisacodyl SUPP* 10 MG SUPP PR PRN (18:24)
[2018-09-16] MEDS ORDERED: GENTEAL TEARS BOTH EYES PRN (18:32)
--- NOTE | 2018-09-16 19:51 | OP ---
Operative Report - Blank - Operative Report Date of Operation: 09/16/18 Note: GEORGIE FRANCO 1930 Date Of Surgery: 09/16/18 Alka Bartlett MD Financial Services Professional: Marley LANTIGUA did help throughout the procedure with preparation of the hip, wound retraction, manipulation of the hip, and wound closure. Anesthesiologist: Dr. Smith Anesthesia Type: Spinal Preoperative Diagnosis: Left severe degenerative osteoarthritis of the hip Postoperative Diagnosis: As above Procedure Performed: Left Total Hip Arthroplasty Complications: None Specimen: Femoral head and acetabular reamings sent to pathology. Hardware used: This is uncemented [place] total hip arthroplasty hardware for the femur a size 5 accolade C 127 degree cemented femoral component with simplex bone cement. For the acetabulum a size 50 D trident II tritanium cluster hole shell with a single 15 mm screw, for the insert a size 36D trident x3 zero degree polyethylene insert, and for the femoral head a size 36 - 5 ceramic biolox V40 femoral head. Brief history/Indication: GEORGIE FRANCO was known in clinic and had a history of severe left hip pain. She failed conservative treatment with anti- inflammatories, pain pills, intra-articular injections and physical therapy. She elected to undergo left total hip arthroplasty due to continued pain and decreased quality of life. Radiographs showed severe end stage osteoarthritis of the hip with bone on bone contact. Informed consent was obtained from the patient. She understood the risks of surgery included but were not limited to: bleeding, infection, damage to nearby structures, intraoperative fracture, nerve palsy, failure of the hardware, early loosening, stiffness or loss of motion, dislocation, leg length discrepancy, anesthesia complications, stroke, heart attack, blood clot and . She wished to proceed. Due to her known osteoporosis and prior bone fracture, the decision was to cement the femoral stem. The patient agreed. Intra-Operative findings: Intraoperatively the patient was noted to have severe loss of cartilage of the acetabulum and femoral head. Description of the Procedure: GEORGIE FRANCO was identified in the preanesthesia unit. Her left hip was marked as the correct operative side. Informed consent was signed and placed in the chart. The patient was taken to the operating room and placed under anesthesia without complication. A arriaga catheter was placed. The patient was placed on the peg board with all bony prominences well padded. The left lower extremity was prepped and draped in the usual sterile fashion. Preoperative time-out was made to correctly identify the patient, side and site. Appropriate intraoperative antibiotics were given within one hour of incision. A standard posterior incision was made and carried sharply down to the lateral fascia. A new 10 blade was used to make an incision in the fascia in line with the skin incision. A charnley retractor was placed. The piriformis and conjoined tendons were identified and elevated off the posterolateral femur using electrocautery. These were tagged with number 5 Ethibond. Next electrocautery was used to make a posterolateral capsular flap and this was tagged with number 5 Ethibonds. The hip was carefully dislocated. Lesser trochanter to the center of the femoral head was measured at 55 mm. The oscillating saw was used to make the femoral neck cut. The femoral head was carefully removed. The femur was retracted anteriorly and the acetabular retractors were placed. Long-handled knife was used to sharply remove any remaining labrum from the acetabular rim. The acetabulum was sequentially reamed up to a size 49. A bleeding subchondral bone bed was obtained. A trial liner was placed and had excellent fit and stability. A 50D trident II tritanium cluster hole shell was placed and had excellent stability with appropriate anteversion and abduction angle. A single 15 mm screw was placed for extra stability. A size 36 D liner was impacted into the acetabular shell. The liner was checked for stability and was stable. Next attention was turned to preparation of the femoral canal. A canal finder was used to enter the proximal femur. The femoral canal was sequentially broached up to a size 5 femoral broach trial. A trial neck and 36-5 trial femoral head was chosen. Lesser trochanter to center of the femoral head measurement was satisfactory. The hip was reduced and taken through a range of motion. The hip was stable in all positions with good soft tissue tension and appropriate leg lengths. The hip was dislocated and all trials were removed. The final implant chosen was a 5 accolade C 127 degree cemented hip stem. This canal was thoroughly washed with sterile saline and a cement plug was placed. The simplex bone cement was placed in the canal and pressurized. The stem was placed and cement was allowed to fully cure. The stem was stable with appropriate anteversion. The femoral head chosen was a 36 - 5 biolox delta ceramic V40 femoral head. The head was impacted onto the femoral neck without difficulty. The final lesser trochanter to center of the femoral head measurement was satisfactory. The hip was reduced and taken through a range of motion. The hip was stable in all positions with good soft tissue tension and appropriate leg lengths. The hip was copiously irrigated with sterile saline. The previously tagged capsule and tendons were repaired to the posterolateral femur through two trochanteric drill holes. The lateral fascia layer was closed using number 1 vicryls. The rest of the incision was closed in a layered fashion using 0 and 2-0 vicryls. The skin was closed using 3-0 monocryl suture and Dermabond. Sterile adaptic, 4x4s and paper tape was used to cover the incision. The patients anesthesia was reversed without difficulty. She was taken to the PACU in stable condition. Intended weight-bearing will be as tolerated with posterior hip precautions.
[2018-09-16] MEDS: Docusate CAP* 100 MG PO SCH (21:13)
[2018-09-16] MEDS: Magnesium Hydroxide LIQ* 30 ML UDC PO SCH (21:13)
--- NOTE | 2018-09-16 21:17 | CONS ---
CONSULTATION REPORT: DATE OF CONSULT: 09/16/18 PROVIDER: GRZEGORZ Dill. REQUESTING PROVIDER: Alka Bartlett MD. REASON FOR CONSULT: Concern for yeast infection versus UTI, management of chronic comorbidities. HISTORY OF PRESENT ILLNESS: Meena Lee is an 88-year-old white female with past medical history significant for hypertension, frequent UTIs, and CLL who is status post left total hip arthroplasty, postop day 0. She failed outpatient medical conservative management of left hip osteoarthritis and elected to have surgery today. The patient had a positive UTI on 09/08/18 and completed a 3-day course of ciprofloxacin, which she completed on 09/12/18. She has a previous history of having frequent UTIs, specifically 3 in the last 4 months. Previously urine culture positive for Klebsiella ornithinolytica on 09/08/18, 07/21/18 and . Patient was found to have a "horrible" yeast infection in July which she was treated for and has since resolved. At the time of evaluation, the patient reports that she had finished her course of 3 days of ciprofloxacin for antibiotic treatment and was feeling irritated in her vaginal area before arriving for surgery today. She reports that she had nursing staff in the OR evaluate her perineal area and the staff told her they did not believe she had signs of a yeast infection. She does not report a vaginal itch at this time, though she was feeling like she had one in the past few days. She declines a physical exam at this time. She denies dysuria, hematuria, flank pain, abdominal pain, lower back pain, fevers, or chills. Additionally, denies chest pain, shortness of breath, visual changes, headache, and dizziness. PAST MEDICAL HISTORY: History of hypertension, CLL, and frequent UTIs. PAST SURGICAL HISTORY: 1. Right total hip arthroplasty. 2. ORIF of the hip x2. 3. Tonsillectomy. 4. Adenoidectomy. HOME MEDICATIONS: 1. Hydrochlorothiazide 25 mg daily. 2. PreserVision AREDS 2 tabs once a day. 3. Multivitamin. 4. MacuHealth. ALLERGIES: To PENICILLIN. FAMILY HISTORY: She reports family history of stroke and cancer. SOCIAL HISTORY: The patient lives with her . Denies tobacco use, drug use, and alcohol use. REVIEW OF SYSTEMS: An 11-system review of systems was completed and all pertinent positives and negatives are above in the HPI. All others are negative. PHYSICAL EXAM: General: Thin elderly female, appears stated age, lying comfortably upright in hospital bed, appearing in no acute distress, at bedside. Head: Normocephalic and atraumatic. Eyes: PERRL. Sclerae are anicteric. ENT: Mucous membranes are moist. Neck is without JVP. Cardio: The patient declines auscultation Respiratory: Chest expansions are symmetrical and the patient declined auscultation. Abdomen: Abdomen is not obese, appears nondistended. Extremities: No clubbing. : The patient declines exam. Neuro: The patient is alert and oriented x3. Cranial nerves II through XII are grossly intact. DIAGNOSTIC STUDIES/LAB DATA: Urine cultures: 06/18/18- Klebsiella ornithinolytica 07/21/18- Klebsiella ornithinolytica 09/08/18- Klebsiella ornithinolytica See medical record for sensitivities. ASSESSMENT AND PLAN: Meena Lee is an 88-year-old white female with past medical history of hypertension and CLL, who is status left total hip arthroplasty. Hospital Medicine is being consulted for co-management for her chronic conditions as well as vaginal complaints and recent history of yeast infection. 1. Hypertension. The patient is on hydrochlorothiazide at home. Her blood pressure has been within normal limits and we will continue to monitor. 2. Yeast infection versus urinary tract infection. The patient declines exam today and reports that her vaginal itch has not been as persistent today. She has a lower suspicion given that she had OR staff evaluate her perineal area and there did not appear to have evidence of yeast infection. She is not symptomatic for urinary tract infection, but a urinalysis will be ordered. She is afebrile. We will consider antibiotics depending on sensitivities of her most recent urinary tract infection if urinalysis is positive. The patient is currently receiving clindamycin as part of postoperative management. 3. Status post left total hip arthroplasty. Management per orthopedic surgery. 4. DVT prophylaxis per Orthopedic Surgery. 5. Disposition per orthopedic surgeon. Thank you for allowing us to participate in the care of this patient. We will follow along during this admission. GRZEGORZ DILL [id number]/[facility] #: [id number]/CPS #: [id number] ALFREDITO
[2018-09-16] MEDS: traMADol TAB* 50 MG PO PRN (21:19)
[2018-09-16] MEDS: Acetaminophen TAB* 325 MG PO SCH (21:20)
[2018-09-16] MEDS: Lactated Ringers 1000 ML Bag* 1,000 ML IV SCH (21:27)
[2018-09-16] MEDS: Clindamycin 600 MG IVPREMIX(* 600 MG/50 ML SDV IV SCH ×2 (21:45→23:32)
--- NOTE | 2018-09-16 22:23 | CONS ---
CONSULTATION REPORT: ADDENDUM: HISTORY OF PRESENT ILLNESS: At the time of evaluation, the patient reports that she had finished her course of 3 days of ciprofloxacin for antibiotic treatment and was feeling irritated in her vaginal area. She reports that she had nursing staff in the OR evaluate her perineal area and she felt comfortable with their response she had a yeast infection. She denies flank pain, abdominal pain, lower back pain, fevers, or chills. She also denies dysuria and hematuria. She does not report a vaginal itch at this time, though she was feeling like she had one in the past few days. Additionally, denies chest pain , shortness of breath, visual changes, headache, and dizziness. PAST MEDICAL HISTORY: History of hypertension, CLL, and frequent UTIs. PAST SURGICAL HISTORY: 1. Right total hip arthroplasty. 2. ORIF of the hip x2. 3. Tonsillectomy. 4. Adenoidectomy. HOME MEDICATIONS: 1. Hydrochlorothiazide 25 mg daily. 2. PreserVision AREDS 2 tabs once a day. 3. Multivitamin. 4. [employer]uHealth. ALLERGIES: To PENICILLIN. FAMILY HISTORY: She reports family history of stroke and cancer. SOCIAL HISTORY: The patient lives with her . Denies tobacco use, drug use, and alcohol use. REVIEW OF SYSTEMS: An 11-system review of systems was completed and all pertinent positives and negatives are above in the HPI. All others are negative. PHYSICAL EXAM: General: Thin elderly female, appears stated age, lying comfortably upright in hospital bed, appearing in no acute distress, at bedside. Head: Normocephalic and atraumatic. Eyes: PERRL. Sclerae are anicteric. ENT: Mucous membranes are moist. Neck is supple without JVP. Cardio: The patient declines exam. Respiratory: Chest expansions are symmetrical and the patient declined auscultation. Abdomen is not obese, appears nondistended. Extremities: No clubbing or edema. : The patient declines exam. Neuro: The patient is alert and oriented x3. Cranial nerves II through XII are grossly intact. DIAGNOSTIC STUDIES/LAB DATA: No laboratory data. ASSESSMENT AND PLAN: Meena Lee is an 88-year-old white female with past medical history of hypertension and CLL, who is status post right, left total hip arthroplasty. Hospital Medicine is being consulted for co-management for her chronic conditions as well as vaginal complaints and recent history of yeast infection. 1. Hypertension. The patient is on hydrochlorothiazide at home. Her blood pressure has been within normal limits and we will continue to monitor. 2. Yeast infection versus urinary tract infection. The patient declines exam today and reports that her vaginal itch has not been as persistent today. She has a lower suspicion given that she had OR staff evaluate her perineal area and there did not appear to have evidence of yeast infection. She is not symptomatic for urinary tract infection, but a urinalysis will be ordered. She is afebrile. We will consider antibiotics depending on sensitivities of her most recent urinary tract infection if urinalysis is positive. The patient is currently receiving clindamycin as part of postoperative management. 3. DVT prophylaxis per Orthopedic Surgery. 4. Disposition per orthopedic surgeon. Thank you for allowing us to participate in the care of this patient. We will follow along during this admission. GRZEGORZ CALLOWAY [id number]/[facility] #: [id number] MTDDorothea
[2018-09-17 02:08] LABS: Urine Appearance Clear; Urine Bacteria Absent (Absent); Urine Bilirubin Negative (Negative); Urine Blood 1+ (Negative); Urine Color Yellow; Urine Glucose Negative (Negative); Urine Ketones 1+ (Negative); Urine Nitrite Negative (Negative); Urine Protein Negative (Negative); Urine Red Blood Cell Trace(0-2/hpf) (Absent); Urine Specific Gravity 1.013 (1.010-1.030); Urine Urobilinogen Negative (Negative); Urine White Blood Cell Trace(0-5/hpf) (Absent)
[2018-09-17 05:02] LABS: Hematocrit 28 % (33-41); Hemoglobin 9.1 g/dL (12.0-16.0); Mean Platelet Volume 6.9 fL (7.4-10.4); Platelet Count 186 10^3/uL (150-450)
[2018-09-17 05:20] LABS: BUN/Creatinine Ratio 35.6 (8-20); Calcium 8.5 mg/dL (8.6-10.3); EGFR African American 159.5 (>60); EGFR Non-African American 131.8 (>60); Potassium 3.6 mmol/L (3.5-5.0)
[2018-09-17] MEDS: oxyCODONE/Acetamin 5/325 MG* TAB PO PRN ×3 (05:38→19:09)
[2018-09-17] MEDS: Acetaminophen TAB* 325 MG PO SCH ×3 (05:43→22:50)
--- NOTE | 2018-09-17 07:02 | PN ---
Progress Note - Progress Note Date of Service: 09/17/18 SOAP: Subjective: Pt. is alert, reports pain is under control. Objective: Vital Signs: Temp Pulse Resp BP Pulse Ox 98.3 F 67 17 120/75 96 09/17/18 04:28 09/17/18 04:28 09/17/18 05:38 09/17/18 04:28 09/17/18 04:28 Laboratory Results - last 24 hr 09/17/18 09/17/18 09/17/18 01:40 04:42 04:42 Hgb 9.1 L Hct 28 L Plt Count 186 MPV 6.9 L Sodium 128 L Potassium 3.6 Chloride 95 L Carbon Dioxide 27 Anion Gap 6 BUN 16 Creatinine 0.45 L Est GFR ( Amer) 159.5 Est GFR (Non-Af Amer) 131.8 BUN/Creatinine Ratio 35.6 H Glucose 132 H Calcium 8.5 L Urine Color Yellow Urine Appearance Clear Urine pH 7.0 Ur Specific [place] 1.013 Urine Protein Negative Urine Ketones 1+ A Urine Blood 1+ A Urine Nitrate Negative Urine Bilirubin Negative Urine Urobilinogen Negative Ur Leukocyte Esterase Negative Urine WBC (Auto) Trace(0-5/hpf) Urine RBC (Auto) Trace(0-2/hpf) Urine Bacteria Absent Urine Glucose Negative LLE - thigh soft, distally nvi. +df/pf, +ehl, 2+ dp pulse. Assessment: 88 yo F pod 1 s/p LTHA Plan: wbat post hip precautions pmru consult
[2018-09-17] MEDS: Clindamycin 600 MG IVPREMIX(* 600 MG/50 ML SDV IV SCH ×2 (09:23→16:22)
[2018-09-17] MEDS: Apixaban* 2.5 MG TAB PO SCH ×2 (09:24→20:40)
[2018-09-17] MEDS: Docusate CAP* 100 MG PO SCH ×2 (09:24→20:41)
[2018-09-17] MEDS: Hydrochlorothiazide TAB* 25 MG PO SCH (09:24)
[2018-09-17] MEDS: Magnesium Hydroxide LIQ* 30 ML UDC PO SCH ×2 (09:24→20:41)
[2018-09-17] MEDS: Vitamin THERAPEUTIC TAB PO SCH (09:24)
--- NOTE | 2018-09-17 10:28 | PN ---
Subjective Date of Service: 09/17/18 Interval History: Ms. Lee is feeling well this morning and offers no complaints. She had some hip pain this morning, about 2/10, but resolved with pain medication. She is now sitting in the chair comfortably. No dysuria, hesitancy, or feelings of incomplete emptying. No further vaginal irritation. She is using A&D ointment which she uses on occasion when she has irritation. Denies CP, SOB, N/V. No concerns from nursing. Family History: Unchanged from Admission Social History: Unchanged from Admission Past Medical History: Unchanged from Admission Objective Active Medications: Acetaminophen (Tylenol Tab*) 975 mg PO Q8H KEN Apixaban (Eliquis*) 2.5 mg PO BID KEN Bisacodyl (Dulcolax Supp*) 10 mg TX DAILY PRN constipation Cyclobenzaprine HCl (Flexeril Tab*) 10 mg PO TID PRN SPASMS Diphenhydramine HCl (Benadryl Iv*) 25 mg IV Q6H PRN itching Diphenhydramine HCl (Benadryl Po*) 25 mg PO Q6H PRN INSOMNIA Docusate Sodium (Colace Cap*) 100 mg PO BID KEN Estradiol (Estrace Vag Cm (Nf)) 1 applic VAGINAL SUWE KEN Hydrochlorothiazide (Hydrodiuril Tab*) 25 mg PO QAM KEN Lactated Ringer's (Lactated Ringers 1000 Ml Bag*) 1,000 mls @ 100 mls/hr IV PER RATE KEN Clindamycin HCl/Dextrose (Cleocin 600 Mg Ivpremix(*) Sdv) 600 mg in 50 mls @ 100 mls/hr IV 0000,0800,1600 KEN Lactulose (Lactulose*) 30 ml PO Q6H PRN constipation Magnesium Hydroxide (Milk Of Magnesia Liq*) 30 ml PO BID KEN Magnesium Hydroxide (Milk Of Magnesia Liq*) 30 ml PO Q6H PRN constipation Morphine Sulfate (Morphine Inj (Syringe))*) 2 mg IV Q2H PRN PAIN Multivitamins (Theragran Tab*) 1 tab PO DAILY KEN Nft: Genteal Tears 1 (Drop) 1 drop BOTH EYES Q6H PRN DRY EYE Pto: Saccharomyces Boulardii(Nf) [ Florastor(Nf)] 250 Mg 250 mg PO QAM KEN Ondansetron HCl (Zofran Inj*) 4 mg IV Q6H PRN nausea Oxycodone HCl (Roxycodone Tab*) 10 mg PO Q4H PRN breakthru pain Oxycodone/Acetaminophen (Percocet 5/325 Tab*) 2 tab PO Q3H PRN PAIN - MODERATE Oxycodone/Acetaminophen (Percocet 5/325 Tab*) 1 tab PO Q3H PRN PAIN - MODERATE Polyethylene Glycol/Electrolytes (Miralax*) 17 gm PO DAILY PRN Constipation Tramadol HCl (Ultram*) 50 mg PO Q6H PRN PAIN Vital Signs - 8 hr 09/17/18 09/17/18 09/17/18 04:28 05:38 07:22 Temperature 98.3 F 98.5 F Pulse Rate 67 57 Respiratory 16 17 16 Rate Blood Pressure 120/75 105/46 (mmHg) O2 Sat by Pulse 96 95 Oximetry 09/17/18 09/17/18 08:00 09:24 Temperature Pulse Rate Respiratory 16 Rate Blood Pressure (mmHg) O2 Sat by Pulse 95 Oximetry Oxygen Devices in Use Now: None Appearance: Elderly female sitting in chair in NAD Eyes: No Scleral Icterus Ears/Nose/Mouth/Throat: Mucous Membranes Moist Neck: NL Appearance and Movements; NL JVP, Trachea Midline Respiratory: Symmetrical Chest Expansion and Respiratory Effort, Clear to Auscultation Cardiovascular: NL Sounds; No Murmurs; No JVD, RRR Abdominal: NL Sounds; No Tenderness; No Distention Extremities: No Edema Neurological: Alert and Oriented x 3 Lines/Tubes/Other Access: Clean, Dry and Intact Peripheral IV Nutrition: Taking PO's Result Diagrams: 09/17/18 04:42 09/17/18 04:42 Assess/Plan/Problems-Billing Assessment: Ms. Lee is an 88 yo F with PMH of HTN and CLL who presented to [facility] for an elective L ALY with Dr. Bartlett and is recovering well. - Patient Problems (1) Status post left hip replacement Code(s): Z96.642 - PRESENCE OF LEFT ARTIFICIAL HIP JOINT Comment: - POD #1 L ALY - Management per Ortho - PT/OT, bowel regimen (2) Hyponatremia Code(s): E87.1 - HYPO-OSMOLALITY AND HYPONATREMIA Comment: - Suspect secondary to IVF - Agree with stopping IVF and rechecking BMP in the AM (3) Vaginal irritation Code(s): N89.8 - OTHER SPECIFIED NONINFLAMMATORY DISORDERS OF VAGINA Comment: - Resolved - No evidence of UTI or gerardo infection - Continue barrier cream for comfort (4) Hypertension Code(s): I10 - ESSENTIAL (PRIMARY) HYPERTENSION Comment: - Normotensive, SBP 100-120s - Continue HCTZ (5) Personal history of CLL (chronic lymphocytic leukemia) Code(s): Z85.6 - PERSONAL HISTORY OF LEUKEMIA Comment: - In remission - Followed by Dr. Howard (6) DVT prophylaxis Comment: - Eliquis per Ortho (7) Full code status Code(s): Z78.9 - OTHER SPECIFIED HEALTH STATUS Comment: Status and Disposition: Dispo per Ortho. Thank you for this consultation. We will continue to follow distantly. Do not hesitate to call with any questions or concerns. Attending: Bertha Souza
[2018-09-17] MEDS: Lactated Ringers 1000 ML Bag* 1,000 ML IV SCH (10:37)
[2018-09-17] MEDS: SACCHAROMYCES BOULARDII 250 MG PO SCH (10:54)
--- NOTE | 2018-09-17 11:46 | PN ---
Progress Note - Progress Note Date of Service: 09/17/18 SOAP: Subjective: []Patient was seen and examined at bedside. She is feeling well without CP, SOB , feeling of irregular beats, dizziness or nausea. Nursing reports when she got up today she felt as though she needed to gasp for breath, which resolved spontaneously within moments. Patient reports she has this occur at home as well though she is unsure why. She had no change in O2 sat or HR surrounding this event. Objective: []General: Well appearing, NAD LLE: Left hip dressing CDI, thigh soft, DF/PF intact, DP2+, sensation intact to light touch distally Calves supple and nontender without erythema, edema or palpable cords Assessment: []POD 1 sp LTH Plan: []WBAT PT/OT eliquis 2.5 mg po BID PMRU referral in Nursing alert hospitalist of gasping, lung sounds are CTA bl and patient is asymptomatic at this time Vital Signs Temp 98.5 F 09/17/18 07:22 Pulse 57 09/17/18 07:22 Resp 16 09/17/18 09:24 BP 105/46 09/17/18 07:22 Pulse Ox 100 09/17/18 10:30 Intake & Output 09/16/18 09/17/18 09/17/18 18:59 06:59 18:59 Intake Total 2150 730 1095 Output Total 200 675 Balance 1950 55 1095 Weight 120 lb Intake: IV Fluids 2150 1040 CLINDAMYCIN 900MG 50 LR 2100 1040 IVPB 50 55 ABX - CLINDAMYCIN 50 55 Oral 680 Output: Fung 200 675 Laboratory Last Values Hgb 9.1 g/dL (12.0-16.0) L 09/17/18 04:42 Hct 28 % (33-41) L 09/17/18 04:42 Plt Count 186 10^3/uL (150-450) 09/17/18 04:42 MPV 6.9 fL (7.4-10.4) L 09/17/18 04:42 Sodium 128 mmol/L (135-145) L 09/17/18 04:42 Potassium 3.6 mmol/L (3.5-5.0) 09/17/18 04:42 Chloride 95 mmol/L (101-111) L 09/17/18 04:42 Carbon Dioxide 27 mmol/L (22-32) 09/17/18 04:42 Anion Gap 6 mmol/L (2-11) 09/17/18 04:42 BUN 16 mg/dL (6-24) 09/17/18 04:42 Creatinine 0.45 mg/dL (0.51-0.95) L 09/17/18 04:42 Est GFR ( Amer) 159.5 (>60) 09/17/18 04:42 Est GFR (Non-Af Amer) 131.8 (>60) 09/17/18 04:42 BUN/Creatinine Ratio 35.6 (8-20) H 09/17/18 04:42 Glucose 132 mg/dL (70-100) H 09/17/18 04:42 Calcium 8.5 mg/dL (8.6-10.3) L 09/17/18 04:42 Urine Color Yellow 09/17/18 01:40 Urine Appearance Clear 09/17/18 01:40 Urine pH 7.0 (5-9) 09/17/18 01:40 Ur Specific [place] 1.013 (1.010-1.030) 09/17/18 01:40 Urine Protein Negative (Negative) 09/17/18 01:40 Urine Ketones 1+ (Negative) A 09/17/18 01:40 Urine Blood 1+ (Negative) A 09/17/18 01:40 Urine Nitrate Negative (Negative) 09/17/18 01:40 Urine Bilirubin Negative (Negative) 09/17/18 01:40 Urine Urobilinogen Negative (Negative) 09/17/18 01:40 Ur Leukocyte Esterase Negative (Negative) 09/17/18 01:40 Urine WBC (Auto) Trace(0-5/hpf) (Absent) 09/17/18 01:40 Urine RBC (Auto) Trace(0-2/hpf) (Absent) 09/17/18 01:40 Urine Bacteria Absent (Absent) 09/17/18 01:40 Urine Glucose Negative (Negative) 09/17/18 01:40
[2018-09-17] MEDS: Multivitamins/Mins (NF) AREDS2 1 CAP CAP PO SCH (11:49)
[2018-09-17] MEDS ORDERED: NFT: Estradiol VAG CM (NF) 1 APPLIC TUBE VAGINAL SCH (18:32)
[2018-09-17] MEDS: traMADol TAB* 50 MG PO PRN (20:46)
[2018-09-18] MEDS: oxyCODONE/Acetamin 5/325 MG* TAB PO PRN ×2 (03:44→09:23)
[2018-09-18 05:38] LABS: Hematocrit 27 % (33-41); Hemoglobin 9.1 g/dL (12.0-16.0); Mean Platelet Volume 7.2 fL (7.4-10.4); Platelet Count 191 10^3/uL (150-450)
[2018-09-18 05:58] LABS: BUN/Creatinine Ratio 26.7 (8-20); Calcium 8.7 mg/dL (8.6-10.3); EGFR African American 114.4 (>60); EGFR Non-African American 94.6 (>60)
[2018-09-18] MEDS: Acetaminophen TAB* 325 MG PO SCH (06:00)
[2018-09-18 07:38] VITALS: BP 129/59
[2018-09-18] MEDS: Hydrochlorothiazide TAB* 25 MG PO SCH (09:23)
[2018-09-18] MEDS: Apixaban* 2.5 MG TAB PO SCH (09:23)
[2018-09-18] MEDS: Vitamin THERAPEUTIC TAB PO SCH (09:23)
[2018-09-18] MEDS: SACCHAROMYCES BOULARDII 250 MG PO SCH (09:24)
[2018-09-18] MEDS: Multivitamins/Mins (NF) AREDS2 1 CAP CAP PO SCH (09:24)
[2018-09-18] MEDS: Magnesium Hydroxide LIQ* 30 ML UDC PO SCH (09:26)
[2018-09-18] MEDS: Docusate CAP* 100 MG PO SCH (09:26)
--- NOTE | 2018-09-18 14:19 | PN ---
Progress Note - Progress Note Date of Service: 09/18/18 SOAP: Subjective: []Pt seen at bedside. She feels well without CP, SOB, dizziness, nausea, confusion, LE numbness. SHe desires DC to [facility] today Objective: []General: Well appearing, NAD LLE: Left hip dressing changed, incision CDI, thigh soft, DF/PF intact, DP2+, sensation intact to light touch distally Calves supple and nontender without erythema, edema or palpable cords Assessment: []POD 2 sp LTH Plan: []WBAT PT/OT eliquis 2.5 mg po BID PMRU today Hyponatremia discussed with hospitalist. fluid restrict to 1200 ml and repeat tomorrow Vital Signs Temp 98.7 F 09/18/18 07:27 Pulse 74 09/18/18 07:27 Resp 18 09/18/18 09:23 BP 129/59 09/18/18 07:27 Pulse Ox 95 09/18/18 07:39 Intake & Output 09/17/18 09/18/18 09/18/18 18:59 06:59 18:59 Intake Total 1689 540 Output Total 300 410 Balance 1389 130 Intake: IV Fluids 1459 LR 1459 IVPB 110 ABX - CLINDAMYCIN 110 Oral 120 540 Output: Urine 300 410 Other: # Bowel Movements 0 Laboratory Last Values Hgb 9.1 g/dL (12.0-16.0) L 09/18/18 05:14 Hct 27 % (33-41) L 09/18/18 05:14 Plt Count 191 10^3/uL (150-450) 09/18/18 05:14 MPV 7.2 fL (7.4-10.4) L 09/18/18 05:14 Sodium 126 mmol/L (135-145) L 09/18/18 05:14 Potassium 4.0 mmol/L (3.5-5.0) 09/18/18 05:14 Chloride 91 mmol/L (101-111) L 09/18/18 05:14 Carbon Dioxide 32 mmol/L (22-32) 09/18/18 05:14 Anion Gap 3 mmol/L (2-11) 09/18/18 05:14 BUN 16 mg/dL (6-24) 09/18/18 05:14 Creatinine 0.60 mg/dL (0.51-0.95) 09/18/18 05:14 Est GFR ( Amer) 114.4 (>60) 09/18/18 05:14 Est GFR (Non-Af Amer) 94.6 (>60) 09/18/18 05:14 BUN/Creatinine Ratio 26.7 (8-20) H 09/18/18 05:14 Glucose 105 mg/dL (70-100) H 09/18/18 05:14 Calcium 8.7 mg/dL (8.6-10.3) 09/18/18 05:14 Urine Color Yellow 09/17/18 01:40 Urine Appearance Clear 09/17/18 01:40 Urine pH 7.0 (5-9) 09/17/18 01:40 Ur Specific [place] 1.013 (1.010-1.030) 09/17/18 01:40 Urine Protein Negative (Negative) 09/17/18 01:40 Urine Ketones 1+ (Negative) A 09/17/18 01:40 Urine Blood 1+ (Negative) A 09/17/18 01:40 Urine Nitrate Negative (Negative) 09/17/18 01:40 Urine Bilirubin Negative (Negative) 09/17/18 01:40 Urine Urobilinogen Negative (Negative) 09/17/18 01:40 Ur Leukocyte Esterase Negative (Negative) 09/17/18 01:40 Urine WBC (Auto) Trace(0-5/hpf) (Absent) 09/17/18 01:40 Urine RBC (Auto) Trace(0-2/hpf) (Absent) 09/17/18 01:40 Urine Bacteria Absent (Absent) 09/17/18 01:40 Urine Glucose Negative (Negative) 09/17/18 01:40
== END 2018-09-18 10:00 | DRG 470 ==
LOC: AA 12:16 → SSU 19:40
PROVIDERS: ADMIT Orthopaedic Surgery Adult Reconstructive Orthopaedic Surgery; ATTEND Orthopaedic Surgery Adult Reconstructive Orthopaedic Surgery
PROC: 0SRB049 Replacement of Left Hip Joint with Ceramic on Polyethylene Synthetic Substitute, Cemented, Open Approach (ICD-10-PCS; principal; 2018-09-16 15:30)
DX: M16.12 Unilateral primary osteoarthritis, left hip (principal); E87.1 Hypo-osmolality and hyponatremia; C91.11 Chronic lymphocytic leukemia of B-cell type in remission; I10 Essential (primary) hypertension; N89.8 Other specified noninflammatory disorders of vagina; I08.3 Combined rheumatic disorders of mitral, aortic and tricuspid valves; Z96.641 Presence of right artificial hip joint; Z88.0 Allergy status to penicillin; Z82.3 Family history of stroke; Z91.040 Latex allergy status; Z98.49 Cataract extraction status, unspecified eye; Z86.718 Personal history of other venous thrombosis and embolism; Z87.891 Personal history of nicotine dependence
CPT/HCPCS: 36415; 72170; 80048; 81003; 81015; 85014; 85018; 85049; 87086; 88304; 88311; A9270-GY; G8978-GP-CK; G8979-GP-CI; G8987-GO-CJ; G8988-GO-CI; J2250; J2704; J2795; J3010

== ENCOUNTER 2018-09-18 07:24 | Inpatient (IN) | payer MEDICARE, OTHER ==
[2018-09-18] MEDS ORDERED: Acetaminophen TAB* 325 MG PO PRN (12:15)
[2018-09-18] MEDS ORDERED: Magnesium Hydroxide LIQ* 30 ML UDC PO PRN (12:15)
[2018-09-18] MEDS ORDERED: oxyCODONE/Acetamin 5/325 MG* TAB PO PRN (12:26)
[2018-09-18] MEDS: Acetaminophen TAB* 325 MG PO SCH ×2 (13:11→21:07)
[2018-09-18] MEDS ORDERED: Simethicone TAB* 80 MG TAB.CHEW PO PRN (18:33)
--- NOTE | 2018-09-18 20:17 | HP ---
ADMISSION HISTORY AND PHYSICAL: DATE OF ADMISSION: 09/18/18 REASON FOR ADMISSION: Left total hip replacement. HISTORY OF PRESENT ILLNESS: Meena Lee is an 88-year-old female. The patient had a right total hip replacement originally put in, in 2014. She had sustained a periprosthetic fracture and loosening of the femoral stem. She had a revision of the right replacement and then later had a revision ORIF of the periprosthetic fracture in [place]. The patient has had ongoing difficulty with left hip pain. She had seen Dr. Alka Bartlett about it. It was decided the best course of action would be for her to have a left total hip replacement. She was admitted to [facility] on 09/16/18. She went to the operating room with Dr. Bartlett that day and underwent a left total hip replacement. Post-operatively, her course has been benign. She did have some hyponatremia and was put on a fluids restriction. She is now being admitted for inpatient rehab so she might return to independent living. PAST MEDICAL HISTORY: Includes CLL. She also has a history of a cystocele. She has had a DVT in the past as well as hypertension and right total hip replacement. MEDICATIONS: Current medications include: 1. Eliquis for DVT prophylaxis. 2. She is on hydrochlorothiazide. 3. Percocet for pain control. 4. Tylenol. ALLERGIES: Include LATEX and PENICILLIN. SOCIAL HISTORY: She is a nonsmoker, nondrinker. She lives with her , Dung, in a two-story house. Their bedroom is on the first floor. There are 2 steps to enter. Her is her healthcare proxy. REVIEW OF SYSTEMS: No current shortness of breath or chest pain. PHYSICAL EXAMINATION VITAL SIGNS: The patient's temperature is 98.0, blood pressure is 100/58, pulse is 63, respirations 16. HEENT: Her extraocular movements are intact. Tongue is midline. NECK: Supple. LUNGS: Clear to auscultation bilaterally. HEART: Heart sounds are regular. S1, S2 are audible. ABDOMEN: Soft and nontender. EXTREMITIES: Her left hip has a wound which is clean and dry. Peripheral pulses are intact. Trace edema in the left leg. NEUROLOGIC: Sensation was intact. Muscle strength appeared to be 5/5, except the left leg which was 3/5 secondary to pain. FUNCTIONAL EXAM: She transfers with min assist. ASSESSMENT: Left total hip replacement. PLAN: Integrate her into a comprehensive and therapeutic rehab program with the following goals: 1. Physical therapy will work with the patient. They are going to work on functional transfer training, ambulation training with a walker. 2. Occupational therapy will see the patient and work on her activities of daily living including toileting and toilet transfers. 3. Eliquis for DVT prophylaxis. 4. Adequate analgesia. 5. Her bowels will be regulated. 6. Foreign Exchange Trader will be closely involved to make sure that any services and equipment the patient requires are in place prior to discharge. 7. We will follow her sodium level and fluid resuscitation. 8. Family training as appropriate. 9. Home with appropriate services. ESTIMATED LENGTH OF STAY: 10 days. [id number]/CPS #: [id number] [id number]
[2018-09-18] MEDS: Senna TAB PO SCH (21:06)
[2018-09-18] MEDS: Docusate CAP* 100 MG PO SCH (21:07)
[2018-09-18] MEDS: Apixaban* 2.5 MG TAB PO SCH (21:12)
[2018-09-19] MEDS: traMADol TAB* 50 MG PO PRN ×2 (00:25→21:28)
[2018-09-19] MEDS: Acetaminophen TAB* 325 MG PO SCH ×3 (05:26→20:16)
[2018-09-19 05:27] LABS: Hematocrit 27 % (33-41); Hemoglobin 8.7 g/dL (12.0-16.0); Mean Corpuscular HGB Conc 33 g/dL (31-36); Mean Corpuscular Hemoglobin 26 pg (27-31); Mean Corpuscular Volume 81 fL (80-97); Platelet Count 185 10^3/uL (150-450); Red Cell Distribution Width 18 % (10.5-15)
[2018-09-19 05:45] LABS: Albumin 2.9 g/dL (3.2-5.2); Albumin/Globulin Ratio 1.2 (1-3); BUN/Creatinine Ratio 27.8 (8-20); Calcium 8.7 mg/dL (8.6-10.3); EGFR African American 129.2 (>60); EGFR Non-African American 106.8 (>60); Globulin 2.5 g/dL (2-4); Potassium 3.5 mmol/L (3.5-5.0); Total Bilirubin 0.9 mg/dL (0.2-1.0); Total Protein 5.4 g/dL (6.4-8.9)
[2018-09-19 07:30] LABS: ABS Basophils 0 10^3/ul (0-0.2); ABS Eosinophils 0.1 10^3/ul (0-0.6); ABS Lymphocytes 10.9 10^3/ul (1.0-4.8); ABS Monocytes 0.4 10^3/ul (0-0.8); ABS Neutrophils 4.5 10^3/ul (1.5-7.7)
[2018-09-19 07:39] LABS: Lymphocytes % 37 %; Monocytes % 2 %; Neutrophil % 58 %
[2018-09-19 07:50] LABS: ABS Neutrophils 9.3 10^3/ul (1.5-7.7)
[2018-09-19 07:51] LABS: ABS Eosinophils 0.5 10^3/ul (0-0.6)
[2018-09-19] MEDS: Multivitamins/Minerals TAB PO SCH (08:34)
[2018-09-19] MEDS: Apixaban* 2.5 MG TAB PO SCH ×2 (08:34→20:16)
[2018-09-19] MEDS: oxyCODONE/Acetamin 5/325 MG* TAB PO PRN (08:34)
[2018-09-19] MEDS: Docusate CAP* 100 MG PO SCH ×2 (08:36→20:16)
[2018-09-19] MEDS: FLORASTOR 250 MG PO SCH (08:38)
[2018-09-19] MEDS: Hydrochlorothiazide TAB* 25 MG PO SCH (10:02)
--- NOTE | 2018-09-19 15:23 | PMRUTEAM ---
PMRU: Team Meeting Current Status: Nursing: Current Status Skin Deviations [Left Hip] Incision Skin Deviation Description [ drsg in place Left Hip] Physical Therapy: Current Status Bed Mobility Assistance Supervision Transfer Mobility Assistance Supervision Transfer/Bed Mobility Rolling Walker Recommended Devices Ambulation Assistance Supervision Ambulation Assistive Devices Rolling Walker Number of Feet Patient 150' Ambulated Stairs Assistance Supervision Stairs Recommended Devices Two Rails Number of Stairs 5 Curb Not Tested Occupational Therapy: Current Status Upper Body Dressing Supervision Lower Body Dressing Max Asst Bathing Min Assist Toileting Supervision Toilet Transfer Supervision Shower Transfer Contact Guard Assist Eating Ind with Adaptive Equip Rec Therapy: Current Status Summary of Assessment and Pt. was open to conversation - watching TV, Clinical Impression somewhat distracted. Pt. was pleasant but gave short responses. Pt. stated she is "dull" and " probably won't do much", but offered t/w to watch TV with her in the afternoons. Pt. is open to continued visits. Treatment Goals Pt. will engage in leisure while on the unit Treatment Plan Provide RT services Social Work: Current Status Discharge Plan return home with home care svs and family support Potential for Family Training TBD Anticipated Discharge Home Destination Discharge With home care svs and family support Goals: Physical Therapy: Initial Goals Bed Mobility Assistance Independent Transfer Mobility Assistance Independent Transfer/Bed Mobility Rolling Walker Recommended Devices Ambulation Independent Ambulation Recommended Devices Rolling Walker Ambulation Distance 150 Stairs Assistance Independent Stair Recommended Devices Two Rails Number of Stairs 5 Physical Therapy: Updated Goals Bed Mobility Assistance Independent Transfer Mobility Assistance Independent Transfer/Bed Mobility Rolling Walker Recommended Devices Ambulation Assistance Independent Ambulation Assistive Devices None Ambulation Distance (ft) 150 Stairs Assistance Independent Number of Stairs 5 Occupational Therapy: Initial Goals Goals to be Completed in (Days 3-5 days ) Upper Body Bathing Routine Supervision/Set Up Lower Body Bathing Routine Supervision/Set Up Upper Body Dressing Routine Independent Lower Body Dressing Routine Moderate Assist Toilet Hygeine and Clothing Modified Independent with Management Routine Toilet Transfer Routine Modified Independent with Step-In Shower Transfer Supervision/Set Up Routine Functional Transfers for ADL Modified Independent with Grooming Routine Independent Feeding Routine Independent Social Work: Goals Discharge Plan return home with home care svs and family support Potential for Family Training TBD Anticipated Discharge Home Destination Discharge With home care svs and family support Care Plan: Care Plan DVT Prophylaxis- Improve/Maintain Start: 09/18/18 13:17 Freq: QSHIFT Status: Active Target: Protocol: Activity Type Activity Date Activity User E-Sign Co-Sign Detail Recorded Client Recorded Date Recorded By Document 09/19/18 08:00 [id number] 09/19/18 10:09 [id number] 09/19/18 08:00 PMRU Outcome: DVT Prophylaxis Outcome/Goals Remains Free of DVT Complies with DVT Prophylaxis /Treatment Demonstrates Knowledge of DVT Prevention/ Treatment TEDS Stockings on Every AM, Off at HS Progression Toward Outcome/Goals Progressing Discharge Planning - Improve/Maintain Start: 09/18/18 13:17 Freq: DAILY Status: Active Target: Protocol: Activity Type Activity Date Activity User E-Sign Co-Sign Detail Recorded Client Recorded Date Recorded By Document 09/19/18 01:43 [id number] 09/19/18 01:43 [id number] 09/19/18 01:43 PMRU Outcome: Discharge Planning Update Patient Family No Outcome/Goals Demonstrates Understanding of Discharge Plan Progression Toward Outcome/Goals Progressing Education-Improve/Maintain Start: 09/18/18 13:17 Freq: QSHIFT Status: Active Target: Protocol: Activity Type Activity Date Activity User E-Sign Co-Sign Detail Recorded Client Recorded Date Recorded By Document 09/19/18 08:00 [id number] 09/19/18 10:09 [id number] 09/19/18 08:00 PMRU Outcome: Education Outcome/Goals Demonstrates Skills Encourage Questions Progression Toward Outcome/Goals Progressing /GI-Improve/Maintain Start: 09/18/18 13:17 Freq: QSHIFT Status: Active Target: Protocol: Activity Type Activity Date Activity User E-Sign Co-Sign Detail Recorded Client Recorded Date Recorded By Document 09/19/18 08:00 [id number] 09/19/18 10:09 [id number] 09/19/18 08:00 PMRU Outcome: Genitourinary/ Gastrointestinal Genitourinary- Outcome/Goals Remain Free of Hospital- Acquired UTI Gastrointestinal-Outcome/Goals Prevent Constipation Laxatives as Ordered Progression Toward Outcome/Goals - Progressing Progression Toward Outcome/Goals - GI Progressing Outcome/Goals Met Comment bowel mvmt this shift Medication Administration Start: 09/18/18 13:17 Freq: QSHIFT Status: Active Target: Protocol: Activity Type Activity Date Activity User E-Sign Co-Sign Detail Recorded Client Recorded Date Recorded By Document 09/19/18 08:00 [id number] 09/19/18 10:09 [id number] 09/19/18 08:00 PMRU Outcome: Medication Administration Assess Patient Knowledge/Teach Med Yes Education for all Meds Outcome/Goals Patient Independent with Medication Administration at Home Demonstrates Understanding Progression Towards Outcome/Goals Progressing Is Patient Going Home on Lovenox? No Mobility- Improve/Maintain Start: 09/18/18 12:42 Freq: DAILY Status: Active Target: Protocol: Activity Type Activity Date Activity User E-Sign Co-Sign Detail Recorded Client Recorded Date Recorded By Document 09/18/18 12:42 [id number] 09/18/18 12:43 [id number] 09/18/18 12:42 PMRU Outcome: Mobility Physical Therapy Evaluation and Yes Treatment Activity OOB with Assistance Yes WBAT Yes: LLE Device Yes: FWW Assistance Yes: CGA Patient to be seen 5x/wk for 60-120 min/ Therex day for: Mobility Training Gait Training Balance Outcome/Goals Maintain/ Achieve Baseline Mobility Status Improve Mobility Status Demonstrates Proper Use of Assistive Devices Free from Complications of Immobility Bed Mobility Yes: Ind Transfers Yes: Mod I with FWW Gait x ft Yes: Mod I with FWW x150ft Up/Down Stairs Yes: Mod I with 2 rails x5 stairs With HEP Yes Pain/Comfort- Improve/Maintain Start: 09/18/18 13:17 Freq: QSHIFT Status: Active Target: Protocol: Activity Type Activity Date Activity User E-Sign Co-Sign Detail Recorded Client Recorded Date Recorded By Document 09/19/18 08:00 [id number] 09/19/18 10:09 [id number] 09/19/18 08:00 PMRU Outcome: Pain/Comfort Outcome/Goals Demonstrates Knowledge and Use of Available Comfort Measures Achieves Acceptable Comfort/Pain Level as Determined by Patient/Condit Maintain Comfort Level Allowing Patient to Fully Participate in Rehab Progression Toward Outcome/Goals Progressing Skin- Improve/Maintain Start: 09/18/18 13:17 Freq: QSHIFT Status: Active Target: Protocol: Activity Type Activity Date Activity User E-Sign Co-Sign Detail Recorded Client Recorded Date Recorded By Document 09/19/18 08:00 [id number] 09/19/18 10:09 [id number] 09/19/18 08:00 PMRU Outcome: Skin Skin Risk Level Medium Skin Orders Dressing Change Outcome/Goals Free from Decubitus Surgical Incisions Healing Progression Toward Outcome/Goals Progressing Medicine Note: Length of Stay: 4 days Anticipated Discharge Destination: Home Tentative Discharge Date: 09/23/18 Discharged to: Home
--- NOTE | 2018-09-19 16:05 | PN ---
Progress Note Date of Service: 09/19/18 Note: GEORGIE FRANCO was visited. Therapy notes read and reviewed. Patient was discussed in interdisciplinary plan of care rounds. She has been doing well. Na up to 128. Will follow Current Medications: Active Medications Generic Name Dose Route Start Last Admin Trade Name Freq PRN Reason Stop Dose Admin Acetaminophen 975 mg 09/18/18 13:00 09/19/18 13:01 Tylenol Tab* PO 975 mg Q8H KEN Administration Apixaban 2.5 mg 09/18/18 21:00 09/19/18 08:34 Eliquis* PO 2.5 mg BID KEN Administration Docusate Sodium 100 mg 09/18/18 21:00 09/19/18 08:36 Colace Cap* PO 100 mg BID KEN Administration Estradiol 1 applic 09/21/18 09:00 Estrace Vag Cm (Nf) VAGINAL SUWE KEN Hydrochlorothiazide 25 mg 09/19/18 09:00 09/19/18 10:02 Hydrodiuril Tab* PO 25 mg DAILY KEN Administration Magnesium Hydroxide 30 ml 09/18/18 12:15 Milk Of Magnesia Liq* PO Q6H PRN CONSTIPATION Multivitamins/Minerals 1 tab 09/19/18 09:00 09/19/18 08:34 Theragran/Minerals Tab* PO 1 tab DAILY KEN Administration Non-Formulary Medication 250 mg 09/19/18 09:00 09/19/18 08:38 Florastor PO 250 mg DAILY KEN Administration Oxycodone/Acetaminophen 1 tab 09/18/18 12:22 09/19/18 08:34 Percocet 5/325 Tab* PO 1 tab Q4H PRN Administration PAIN - MODERATE TO SEVERE Oxycodone/Acetaminophen 2 tab 09/18/18 12:26 Percocet 5/325 Tab* PO Q4H PRN PAIN - SEVERE Senna 2 tab 09/18/18 21:00 09/18/18 21:06 Senokot Tab* PO 2 tab BEDTIME KEN Administration Simethicone 80 mg 09/18/18 18:33 Mylicon Tab* PO Q6H PRN DYSPEPSIA Tramadol HCl 50 mg 09/18/18 18:09 09/19/18 00:25 Ultram* PO 50 mg Q6H PRN Administration PAIN - MODERATE Vital Signs: Vital Signs Temp Pulse Resp BP Pulse Ox 98.8 F 72 16 120/54 96 09/19/18 05:00 09/19/18 05:00 09/19/18 10:10 09/19/18 05:00 09/19/18 08:00 Lab Results: Laboratory Results - last 24 hr 09/19/18 09/19/18 05:17 05:17 WBC 16.0 H RBC 3.30 L Hgb 8.7 L Hct 27 L MCV 81 MCH 26 L MCHC 33 RDW 18 H Plt Count 185 MPV 7.0 L Neut % (Auto) Not Reportable Lymph % (Auto) Not Reportable [place] % (Auto) Not Reportable Eos % (Auto) Not Reportable Baso % (Auto) Not Reportable Absolute Neuts (auto) 4.5 Absolute Lymphs (auto) 10.9 H Absolute Monos (auto) 0.4 Absolute Eos (auto) 0.1 Absolute Basos (auto) 0 Absolute Nucleated RBC Not Reportable Neutrophils % 58 Lymphocytes % 37 Monocytes % 2 Eosinophils % 3 Nucleated RBC % Not Reportable Abs Neuts (Manual) 9.3 H Abs Lymphs (Manual) 5.9 H Abs Monocytes (Manual) 0.3 Absolute Eos (Manual) 0.5 Smudge Cells Present Normal RBC Morphology Not Reportable Anisocytosis 2+ Elliptocytes 1+ Sodium 128 L Potassium 3.5 Chloride 92 L Carbon Dioxide 31 Anion Gap 5 BUN 15 Creatinine 0.54 Est GFR ( Amer) 129.2 Est GFR (Non-Af Amer) 106.8 BUN/Creatinine Ratio 27.8 H Glucose 91 Calcium 8.7 Total Bilirubin 0.90 AST 34 ALT 39 Alkaline Phosphatase 74 Total Protein 5.4 L Albumin 2.9 L Globulin 2.5 Albumin/Globulin Ratio 1.2 Exam: GENERAL: No distress LUNGS: Clear bilaterally HEART: Reg rhythm ABDOMEN: Soft, +BS EXTREMITIES: Left hip wound C/D/I. Calves non-tender NEUROLOGIC: A&O. Sensation intact. Motor 5/5 except left hip muscles Assessment/Plan: 1. Left ALY: WBAT. PT/OT 2. Hyponatremia: Improving. Monitor. 3. CLL: WBC stable 4. DVT Prophylaxis: Eliquis 5. Advance Directives: Full code 09/19/18 16:03 09/19/18 16:04
[2018-09-19] MEDS: Senna TAB PO SCH (20:19)
[2018-09-20] MEDS: Acetaminophen TAB* 325 MG PO SCH ×3 (06:09→21:14)
[2018-09-20] MEDS: Docusate CAP* 100 MG PO SCH ×2 (09:05→21:13)
[2018-09-20] MEDS: Hydrochlorothiazide TAB* 25 MG PO SCH (09:05)
[2018-09-20] MEDS: Apixaban* 2.5 MG TAB PO SCH ×2 (09:05→21:13)
[2018-09-20] MEDS: Multivitamins/Minerals TAB PO SCH (09:05)
[2018-09-20] MEDS: FLORASTOR 250 MG PO SCH (09:05)
[2018-09-20] MEDS: oxyCODONE/Acetamin 5/325 MG* TAB PO PRN (09:44)
--- NOTE | 2018-09-20 13:39 | PN ---
Progress Note Date of Service: 09/20/18 Note: GEORGIE FRANCO was visited. Therapy notes read and reviewed. Yesterday, one of her tylenol doses was held as she was at 4 gm of tylenol. Will change Percocet to oxycodone. Current Medications: Active Medications Generic Name Dose Route Start Last Admin Trade Name Freq PRN Reason Stop Dose Admin Acetaminophen 975 mg 09/18/18 13:00 09/20/18 13:16 Tylenol Tab* PO 975 mg Q8H KEN Administration Apixaban 2.5 mg 09/18/18 21:00 09/20/18 09:05 Eliquis* PO 2.5 mg BID KEN Administration Docusate Sodium 100 mg 09/18/18 21:00 09/20/18 09:05 Colace Cap* PO 100 mg BID KEN Administration Estradiol 1 applic 09/21/18 09:00 Estrace Vag Cm (Nf) VAGINAL SUWE KEN Hydrochlorothiazide 25 mg 09/19/18 09:00 09/20/18 09:05 Hydrodiuril Tab* PO 25 mg DAILY KEN Administration Magnesium Hydroxide 30 ml 09/18/18 12:15 Milk Of Magnesia Liq* PO Q6H PRN CONSTIPATION Multivitamins/Minerals 1 tab 09/19/18 09:00 09/20/18 09:05 Theragran/Minerals Tab* PO 1 tab DAILY KEN Administration Non-Formulary Medication 250 mg 09/19/18 09:00 09/20/18 09:05 Florastor PO 250 mg DAILY KEN Administration Oxycodone/Acetaminophen 1 tab 09/18/18 12:22 09/20/18 09:44 Percocet 5/325 Tab* PO 1 tab Q4H PRN Administration PAIN - MODERATE TO SEVERE Oxycodone/Acetaminophen 2 tab 09/18/18 12:26 Percocet 5/325 Tab* PO Q4H PRN PAIN - SEVERE Senna 2 tab 09/18/18 21:00 09/19/18 20:19 Senokot Tab* PO Not Given BEDTIME KEN Simethicone 80 mg 09/18/18 18:33 Mylicon Tab* PO Q6H PRN DYSPEPSIA Tramadol HCl 50 mg 09/18/18 18:09 09/19/18 21:28 Ultram* PO 50 mg Q6H PRN Administration PAIN - MODERATE Vital Signs: Vital Signs Temp Pulse Resp BP Pulse Ox 97.8 F 72 16 122/77 99 09/20/18 08:00 09/20/18 08:00 09/20/18 09:44 09/20/18 08:00 09/20/18 09:00 Lab Results: Laboratory Results - last 24 hr 09/19/18 05:17 Hem Pathologist Commnt Exam: GENERAL: No distress LUNGS: Clear bilaterally HEART: Reg rhythm ABDOMEN: Soft, +BS EXTREMITIES: Left hip wound C/D/I. Calves non-tender NEUROLOGIC: A&O. Sensation intact. Motor 5/5 except left hip muscles Assessment/Plan: 1. Left ALY: WBAT. PT/OT 2. Hyponatremia: Improving. Monitor. 3. CLL: WBC stable 4. DVT Prophylaxis: Eliquis 5. Advance Directives: Full code 09/20/18 13:40
[2018-09-20] MEDS ORDERED: oxyCODONE TAB* 5 MG TAB PO PRN (13:44)
[2018-09-20] MEDS: Senna TAB PO SCH (21:47)
[2018-09-21] MEDS: Acetaminophen TAB* 325 MG PO SCH ×3 (06:11→21:40)
[2018-09-21] MEDS: FLORASTOR 250 MG PO SCH (08:48)
[2018-09-21] MEDS: Apixaban* 2.5 MG TAB PO SCH ×2 (08:49→21:40)
[2018-09-21] MEDS: Multivitamins/Minerals TAB PO SCH (08:49)
[2018-09-21] MEDS: Docusate CAP* 100 MG PO SCH ×2 (08:49→21:39)
[2018-09-21] MEDS: Hydrochlorothiazide TAB* 25 MG PO SCH (08:49)
[2018-09-21] MEDS ORDERED: Estradiol VAG CM (NF) 1 APPLIC TUBE VAGINAL SCH (09:00)
[2018-09-21] MEDS: traMADol TAB* 50 MG PO PRN (12:12)
--- NOTE | 2018-09-21 16:32 | PN ---
Progress Note Date of Service: 09/21/18 Note: GEORGIE FRANCO was visited. Nursing notes read and reviewed. She has no new complaints. She thinks the oxycodone may be too strong for her Current Medications: Active Medications Generic Name Dose Route Start Last Admin Trade Name Freq PRN Reason Stop Dose Admin Acetaminophen 975 mg 09/18/18 13:00 09/21/18 13:12 Tylenol Tab* PO 975 mg Q8H KEN Administration Apixaban 2.5 mg 09/18/18 21:00 09/21/18 08:49 Eliquis* PO 2.5 mg BID KEN Administration Docusate Sodium 100 mg 09/18/18 21:00 09/21/18 08:49 Colace Cap* PO 100 mg BID KEN Administration Estradiol 1 applic 09/21/18 09:00 09/21/18 10:08 Estrace Vag Cm (Nf) VAGINAL Not Given [facility] Hydrochlorothiazide 25 mg 09/19/18 09:00 09/21/18 08:49 Hydrodiuril Tab* PO 25 mg DAILY KEN Administration Magnesium Hydroxide 30 ml 09/18/18 12:15 Milk Of Magnesia Liq* PO Q6H PRN CONSTIPATION Multivitamins/Minerals 1 tab 09/19/18 09:00 09/21/18 08:49 Theragran/Minerals Tab* PO 1 tab DAILY KEN Administration Non-Formulary Medication 250 mg 09/19/18 09:00 09/21/18 08:48 Florastor PO 250 mg DAILY KEN Administration Oxycodone HCl 5 mg 09/20/18 13:40 Roxycodone Tab* PO Q4H PRN PAIN - MODERATE TO SEVERE Oxycodone HCl 10 mg 09/20/18 13:44 09/20/18 21:54 Roxycodone Tab* PO 10 mg Q4H PRN Administration PAIN - SEVERE Senna 2 tab 09/18/18 21:00 09/20/18 21:47 Senokot Tab* PO Not Given BEDTIME KEN Simethicone 80 mg 09/18/18 18:33 Mylicon Tab* PO Q6H PRN DYSPEPSIA Tramadol HCl 50 mg 09/18/18 18:09 09/21/18 12:12 Ultram* PO 50 mg Q6H PRN Administration PAIN - MODERATE Vital Signs: Vital Signs Temp Pulse Resp BP Pulse Ox 97.7 F 59 18 119/53 98 09/21/18 15:10 09/21/18 15:10 09/21/18 15:10 09/21/18 15:10 09/21/18 15:10 Exam: GENERAL: No distress LUNGS: Clear bilaterally HEART: Reg rhythm ABDOMEN: Soft, +BS EXTREMITIES: Left hip wound C/D/I. Calves non-tender NEUROLOGIC: A&O. Sensation intact. Motor 5/5 except left hip muscles Assessment/Plan: 1. Left ALY: WBAT. PT/OT 2. Hyponatremia: Improving. Monitor. 3. CLL: WBC stable 4. DVT Prophylaxis: Eliquis 5. Advance Directives: Full code 09/21/18 16:32
[2018-09-21] MEDS: Senna TAB PO SCH (21:39)
[2018-09-21] MEDS: oxyCODONE TAB* 5 MG TAB PO PRN (21:41)
[2018-09-22] MEDS: traMADol TAB* 50 MG PO PRN ×3 (02:04→15:31)
[2018-09-22] MEDS: Acetaminophen TAB* 325 MG PO SCH ×3 (05:02→21:00)
[2018-09-22] MEDS: Apixaban* 2.5 MG TAB PO SCH ×2 (09:14→21:00)
[2018-09-22] MEDS: Hydrochlorothiazide TAB* 25 MG PO SCH (09:14)
[2018-09-22] MEDS: FLORASTOR 250 MG PO SCH (09:14)
[2018-09-22] MEDS: Multivitamins/Minerals TAB PO SCH (09:14)
[2018-09-22] MEDS: Docusate CAP* 100 MG PO SCH ×2 (09:14→21:00)
--- NOTE | 2018-09-22 16:57 | PN ---
Progress Note Date of Service: 09/22/18 Note: GEORGIE FRANCO was visited. Therapy notes read and reviewed. She is doing well without complaints. Otherwise ok. Current Medications: Active Medications Generic Name Dose Route Start Last Admin Trade Name Freq PRN Reason Stop Dose Admin Acetaminophen 975 mg 09/18/18 13:00 09/22/18 14:02 Tylenol Tab* PO 975 mg Q8H KEN Administration Apixaban 2.5 mg 09/18/18 21:00 09/22/18 09:14 Eliquis* PO 2.5 mg BID KEN Administration Docusate Sodium 100 mg 09/18/18 21:00 09/22/18 09:14 Colace Cap* PO 100 mg BID KEN Administration Estradiol 1 applic 09/21/18 09:00 09/21/18 10:08 Estrace Vag Cm (Nf) VAGINAL Not Given SUWE KEN Hydrochlorothiazide 25 mg 09/19/18 09:00 09/22/18 09:14 Hydrodiuril Tab* PO 25 mg DAILY KEN Administration Magnesium Hydroxide 30 ml 09/18/18 12:15 Milk Of Magnesia Liq* PO Q6H PRN CONSTIPATION Multivitamins/Minerals 1 tab 09/19/18 09:00 09/22/18 09:14 Theragran/Minerals Tab* PO 1 tab DAILY KEN Administration Non-Formulary Medication 250 mg 09/19/18 09:00 09/22/18 09:14 Florastor PO 250 mg DAILY KEN Administration Oxycodone HCl 5 mg 09/20/18 13:40 09/21/18 21:41 Roxycodone Tab* PO 5 mg Q4H PRN Administration PAIN - MODERATE TO SEVERE Oxycodone HCl 10 mg 09/20/18 13:44 09/20/18 21:54 Roxycodone Tab* PO 10 mg Q4H PRN Administration PAIN - SEVERE Senna 2 tab 09/18/18 21:00 09/21/18 21:39 Senokot Tab* PO 2 tab BEDTIME KEN Administration Simethicone 80 mg 09/18/18 18:33 Mylicon Tab* PO Q6H PRN DYSPEPSIA Tramadol HCl 50 mg 09/18/18 18:09 09/22/18 15:31 Ultram* PO 50 mg Q6H PRN Administration PAIN - MODERATE Vital Signs: Vital Signs Temp Pulse Resp BP Pulse Ox 97.9 F 58 18 135/48 98 09/22/18 16:14 09/22/18 16:14 09/22/18 16:14 09/22/18 16:14 09/22/18 16:14 Exam: GENERAL: No distress LUNGS: Clear bilaterally HEART: Reg rhythm ABDOMEN: Soft, +BS EXTREMITIES: Left hip wound C/D/I. Calves non-tender NEUROLOGIC: A&O. Sensation intact. Motor 5/5 except left hip muscles Assessment/Plan: 1. Left ALY: WBAT. PT/OT 2. Hyponatremia: Improving. Monitor. 3. CLL: WBC stable 4. DVT Prophylaxis: Eliquis 5. Advance Directives: Full code 09/22/18 16:57
[2018-09-22] MEDS: Senna TAB PO SCH (21:00)
[2018-09-22] MEDS: oxyCODONE TAB* 5 MG TAB PO PRN (21:51)
[2018-09-23] MEDS: oxyCODONE TAB* 5 MG TAB PO PRN (02:30)
[2018-09-23] MEDS: Acetaminophen TAB* 325 MG PO SCH ×2 (05:27→13:09)
[2018-09-23 05:45] VITALS: BP 118/65
[2018-09-23] MEDS: Docusate CAP* 100 MG PO SCH (09:20)
[2018-09-23] MEDS: Multivitamins/Minerals TAB PO SCH (09:20)
[2018-09-23] MEDS: Hydrochlorothiazide TAB* 25 MG PO SCH (09:20)
[2018-09-23] MEDS: FLORASTOR 250 MG PO SCH (09:20)
[2018-09-23] MEDS: Apixaban* 2.5 MG TAB PO SCH (09:20)
[2018-09-23] MEDS: traMADol TAB* 50 MG PO PRN (09:26)
== END 2018-09-23 13:30 | disposition home health service (06) | DRG 560 ==
LOC: PMRU 09:58
PROVIDERS: ADMIT Physical Medicine & Rehabilitation; ATTEND Physical Medicine & Rehabilitation
PROC: F07Z5ZZ Bed Mobility Treatment (ICD-10-PCS; principal; 2018-09-18)
PROC: F07Z9ZZ Gait Training/Functional Ambulation Treatment (ICD-10-PCS; 2018-09-18)
PROC: F07Z8ZZ Transfer Training Treatment (ICD-10-PCS; 2018-09-18)
PROC: F08Z0ZZ Bathing/Showering Techniques Treatment (ICD-10-PCS; 2018-09-18)
PROC: F08Z1ZZ Dressing Techniques Treatment (ICD-10-PCS; 2018-09-18)
PROC: F08Z3ZZ Feeding/Eating Treatment (ICD-10-PCS; 2018-09-18)
DX: Z47.1 Aftercare following joint replacement surgery (principal); E87.1 Hypo-osmolality and hyponatremia; C91.10 Chronic lymphocytic leukemia of B-cell type not having achieved remission; Z96.642 Presence of left artificial hip joint; I10 Essential (primary) hypertension; Z96.641 Presence of right artificial hip joint; Z86.718 Personal history of other venous thrombosis and embolism; Z79.01 Long term (current) use of anticoagulants; Z79.1 Long term (current) use of non-steroidal anti-inflammatories (NSAID); Z79.899 Other long term (current) drug therapy; Z88.0 Allergy status to penicillin; Z91.040 Latex allergy status
CPT/HCPCS: 36415; 80053; 85025; 85060; A9270-GY

== ENCOUNTER 2019-03-22 07:50 | Emergency (ER) | payer MEDICARE, OTHER ==
--- OUTSIDE RECORDS SUMMARY | 2019-03-22 07:56 | XMS REPORT | Continuity of Care Document ---
:1930 External Reference #:[id number] Author Name Brooke Diallo MD (transmitted by agent of provider Sally Richards) Address [address] [facility] [address] [place] [address] Care Team Providers Name Role Phone Sindhu Amaya MD - Obstetrics & Care Team Information Fire Control Technician B Gynecology Rocco Rios MD - Family Care Team Information Fire Control Technician B [phone] Medicine Problems Active Problems Provider Date Dyspnea Kaz Shelton M.D. Onset: 10/14/2013 Chest pain Kaz Shelton M.D. Onset: 10/14/2013 Degenerative joint disease of pelvis Charlie Felton M.D. Onset: 12/08/2014 Prosthetic arthroplasty of the hip Charlie Felton M.D. Onset: 12/08/2014 Trochanteric bursitis Charlie Felton M.D. Onset: 06/22/2015 Injury of hip region Charlie Felton M.D. Onset: 09/08/2015 Unspecified injury of right quadriceps Charlie Felton M.D. Onset: 09/29/2015 muscle, fascia and tendon, subsequent encounter Stress fracture, right femur, subsequent Charlie Felton M.D. Onset: 2015 encounter for fracture with routine healing Iliotibial band friction syndrome Charlie Felton M.D. Onset: 01/18/2016 Psoas tendinitis Charlie Felton M.D. Onset: 02/08/2016 Periprosthetic osteolysis Alka Bartlett M.D. Onset: 03/12/2016 Localized, primary osteoarthritis of the Alka Bartlett M.D. Onset: 07/23/2018 pelvic region and thigh Localized, primary osteoarthritis Alka Bartlett M.D. Onset: 07/23/2018 Social History Type Date Description Comments Sex Unknown ETOH Use Denies alcohol use Tobacco Use Start: Unknown End: Patient is a former Quit 40 years ago. Unknown smoker Pt smokes maybe one pack a week Recreational Drug Use Never Used Drugs Smoking Status Reviewed: 02/04/19 Patient is a former Quit 40 years ago. smoker Pt smokes maybe one pack a week Exercise Type/Frequency Exercises regularly [facility], cardio, weights Allergies, Adverse Reactions, Alerts Active Allergies Reaction Severity Comments Date Penicillin hives 08/12/2013 Latex gloves, itchy 10/14/2013 Medications Active Medications SIG Qnty Indications Ordering Date Provider Florastor 1 by mouth Boris Peres, 08/26/2018 250mg Capsules twice a day DO FACC Hydrochlorothiazide 1 po qd Unknown 25mg qd Preservision Areds 1 by mouth Unknown Capsules once a day Multi Complete 1 by mouth Unknown daily [facility] 1 in am 1 in Unknown pm Ra [facility] 1 by mouth Unknown Tablets daily Tylenol Extra Strength 2 tabs po qd Unknown 500mg Tablets prn pain HM Salonpas Pain Relief use on back Unknown 1.2-5.7-6.3% prn Patches History Medications Cipro take one tab 6tabs Alka Bartlett M.D. 09/10/2018 - 250mg Tablets twice a day for 09/25/2018 three days Medications Administered in Office Medication SIG Qnty Indications Ordering Provider Date Depomedrol 40MG Alka Bartlett M.D. 07/23/2018 Injection Depomedrol 40MG Alka Bartlett M.D. 07/23/2018 Injection Celestone 3 mg and 3mg Charlie Felton M.D. 11/02/2015 Injection Depomedrol 80MG RADHA Greene 03/02/2015 Injection Depomedrol 80MG RADHA Greene 05/04/2014 Injection Inj, Regadenoson, 0.1 MG Kaz Shelton M.D. 10/28/2013 Injection Technetium TC 99M TetrofosmKaz patton M.D. 10/28/2013 Per Unit Dose Up To 40 Millicuries Injection Depomedrol 80MG Charlie Felton M.D. 08/12/2013 Injection Immunizations Description No Information Available Vital Signs Date Vital Result Comment 02/04/2019 10:39am Height 62 inches 5'2" Weight 118.00 lb Heart Rate 72 /min BP Systolic Sitting 104 mmHg BP Diastolic Sitting 62 mmHg Respiratory Rate 12 /min Body Temperature 97.2 F BMI (Body Mass Index) 21.6 kg/m2 01/28/2019 9:39am Height 62 inches 5'2" Weight 113.00 lb BP Systolic 138 mmHg BP Diastolic 68 mmHg Respiratory Rate 13 /min Body Temperature 98.0 F Pain Level 6 BMI (Body Mass Index) 20.7 kg/m2 Results Test Date Facility Test Result H/L Range Note Inr/Protime 09/08/2018 [facility] Inr 0.94 Normal 0.77-1.[address] [place] [address] [phone] Laboratory test 09/08/2018 [facility] Partial 27.6 seconds Normal 26.0-36.[address] [place] [address] PTT [phone] Comp Metabolic 09/08/2018 [facility] Sodium 134 mmol/L Low 135 -145 [place] [address] [phone] Potassium 3.8 mmol/L Normal 3.5-5.0 Chloride 95 mmol/L Low 101-111 Co2 Carbon Dioxide 32 mmol/L Normal 22-32 Anion Gap 7 mmol/L Normal 2-11 Glucose 95 mg/dL Normal 70-100 Blood Urea Nitrogen 22 mg/dL Normal 6-24 Creatinine 0.62 mg/dL Normal 0.51-0.95 BUN/Creatinine Ratio 35.5 High 8-20 Calcium 9.8 mg/dL Normal 8.6-10.3 Total Protein 6.5 g/dL Normal 6.4-8.9 Albumin 4.0 g/dL Normal 3.2-5.2 Globulin 2.5 g/dL Normal 2-4 Albumin/Globulin Ratio 1.6 Normal 1-3 Total Bilirubin 0.40 mg/dL Normal 0.2-1.0 Alkaline Phosphatase 75 U/L Normal 34-104 Alt 15 U/L Normal 7-52 Ast 16 U/L Normal 13-39 Egfr Non- 91.1 >60 Egfr 110.2 >60 2 Type & Screen 09/08/2018 [facility] Patient Blood Type A Negative [address] [place] [address] [phone] Antibody Screen NEGATIVE CBC Auto 09/08/2018 [facility] White Blood 18.7 10^3/uL High 3.5-10.8 Diff [address] [facility] [place] [address] [phone] Red Blood Count 4.56 10^6/uL Normal 3.70-4.87 Hemoglobin 12.0 g/dL Normal 12.0-16.0 Hematocrit 37 % Normal 33-41 Mean Corpuscular Volume 81 fL Normal 80-97 Mean Corpuscular Hemoglobin 26 pg Low 27-31 Mean Corpuscular HGB Conc 33 g/dL Normal 31-36 Red Cell Distribution Width 17 % High 10.5-15 Platelet Count 225 10^3/uL Normal 150-450 Mean Platelet Volume 7.3 fL Low 7.4-10.4 Abs Neutrophils 3.9 10^3/uL Normal 1.5-7.7 Abs Lymphocytes 14.1 10^3/uL High 1.0-4.8 3 Abs Monocytes 0.5 10^3/uL Normal 0-0.8 Abs Eosinophils 0 10^3/uL Normal 0-0.6 Abs Basophils 0.1 10^3/uL Normal 0-0.2 Manual Differential 09/08/2018 [facility] Neutrophil % 28 % [address] [place] [address] [phone] Lymphocytes % 66 % Monocytes % 1 % Variant Lymph % 5 % Normal 0-6 RBC Morphology Normal Normal Abs Neutrophils 5.2 10^3/uL Normal 1.5-7.7 Abs Lymphocytes 13.3 10^3/uL High 1.0-4.8 Abs Monocytes 0.2 10^3/uL Normal 0-0.8 Laboratory test 09/08/2018 [facility] Pathologist Review (SEE NOTE) [address] [place] [address] [phone] Urinalysis 09/08/2018 [facility] Urine Color Yellow Profile [address] [place] [address] [phone] Urine Appearance Cloudy Urine Specific [place] 1.014 Normal 1.010-1.030 Urine pH 5.0 Normal 5-9 Urine Urobilinogen Negative Negative Urine Ketones Negative Negative Urine Protein Negative Negative Urine Leukocytes 3+ Abnormal Negative Urine Blood 1+ Abnormal Negative * * Abnormal Negative 5 Urine Nitrite Negative Negative Urine Bilirubin Negative Negative Urine Glucose Negative Negative Urine White Blood Cell 3+(>20/hpf) Abnormal Absent Urine Red Blood Cell 2+(6-10/hpf) Abnormal Absent Urine Bacteria 2+ Abnormal Absent Urine Squamous Epithelial Cell Present Abnormal Absent Urine Culture And 09/08/2018 [facility] Urine Culture SEE RESULT [address] [place] [address] [phone] 1 PAIN IN LEFT HIP, UNILATERAL PRIMARY OSTEOARTHRIT 2 Because ethnic data is not always readily [...] 15-29 5 Kidney failure <15 (or dialysis) 3 Consistent with Previous Results Reported on 08/26/18 4 Absolute lymphocytosis, compatible with a low-grade lymphoproliferative disorder. Recommend correlation with flow cytometry for further characterization. Reviewed by Eva Landaverde MD 5 *Ascorbic acid is present which may interfere with detection of blood. 6 SEE RESULT BELOW Name: GEORGIE FRANCO: [address]: Alka Bartlett MD Acct: [id number] Unit: [id number] AGE: 88 Location: [facility] Re09/08/18 SEX: F Status: REG REF SPEC: [id number] LORIE: 09/08/[address]: Alka Bartlett MD REQ: [id number] RECD: 09/08/18 STATUS: BETHANY KAM DR: Rocco Rios MD _ SOURCE: URINE SPDESC: ORDERED: Urine Culture Procedure Result Reported Site Urine Culture Final 09/10/18- 828 ML Organism 1 KLEBSIELLA ORNITHINOLYTICA [place] Count >100,000 (Many) CFU/ML 1. KLEBSIELLA ORNITHINOLYTICA [...] . END OF REPORT DEPARTMENT OF PATHOLOGY, [address] [place] [address] Luís Smith M.D. Director [facility] # [id number] Procedures Date Code Description Status 09/16/2018 95400 THR Total Hip Replacement Completed 09/16/2018 55322 THR Total Hip Replacement Completed 08/26/2018 90043 EKG Tracing & Interpretation Completed 07/31/2018 [id number] Mammogram Completed 11/15/2017 [id number] Mammogram Completed 07/08/2017 [id number] Mammogram Completed 12/05/2015 [id number] Bone Mineral Density Test Completed Medical Devices Description No Information Available Encounters Type Date Location Provider Dx Diagnosis Office Visit 01/28/2019 Orthopedic Alka Bartlett, Z96.642 Presence of left 9:30a Services Of Malick Drake artificial hip joint M16.12 Unilateral primary osteoarthritis, left hip M25.552 Pain in left hip Office Visit 09/17/2018 9:10a [facility] Nicky Rivera Z96.642 Presence of left marguerite Burris BRASS RECLAIMER artificial hip Hospitalists joint E87.1 Hypo-osmolality and hyponatremia I10 Essential (primary) hypertension Z85.6 Personal history of leukemia Office Visit 09/16/2018 [facility] [place] M16.12 Unilateral primary 9:09a marguerite Burris PAJalen osteoarthritis, left Hospitalists hip I10 Essential (primary) hypertension Office Visit 08/26/2018 Eulogio Fernandez Z01.810 Encounter for 10:15a Cardiology Of DO Ja preprocedural [facility] cardiovascular examination Z86.718 Personal history of other venous thrombosis and embolism I10 Essential (primary) hypertension M17.12 Unilateral primary osteoarthritis, left knee Office Visit 08/08/2018 10:45a Orthopedic Services Alka Bartlett, M25.552 Pain in left Of C.M.A. Suzy.DJulia hip M16.12 Unilateral primary osteoarthritis, left hip Assessments Date Code Description Provider 02/04/2019 N64.59 Other signs and symptoms in breast Brooke Diallo MD 01/28/2019 Z96.642 Presence of left artificial hip joint Alka Bartlett M.D. 01/28/2019 M16.12 Unilateral primary osteoarthritis, left Alka Bartlett M.D. hip 01/28/2019 M25.552 Pain in left hip Alka Bartlett M.D. 10/27/2018 M25.552 Pain in left hip Alka Bartlett M.D. 10/27/2018 M16.12 Unilateral primary osteoarthritis, left Alka Bartlett M.D. hip 10/27/2018 Z47.1 Aftercare following joint replacement Alka Bartlett M.D. surgery 10/27/2018 Z96.642 Presence of left artificial hip joint Alka Bartlett M.D. 09/26/2018 M25.552 Pain in left hip Alka Bartlett M.D. 09/26/2018 M16.12 Unilateral primary osteoarthritis, left Alka Bartlett M.D. hip 09/26/2018 Z47.1 Aftercare following joint replacement Alka Bartlett M.D. surgery 09/26/2018 Z96.642 Presence of left artificial hip joint Alka Bartlett M.D. 09/18/2018 Z47.1 Aftercare following joint replacement GRZEGORZ Leal surgery 09/18/2018 Z96.642 Presence of left artificial hip joint GRZEGORZ Leal 09/17/2018 Z47.1 Aftercare following joint replacement GRZEGORZ Leal surgery 09/17/2018 Z96.642 Presence of left artificial hip joint Nicky Miguel, BRASS RECLAIMER 09/17/2018 Z96.642 Presence of left artificial hip joint GRZEGORZ Leal 09/17/2018 E87.1 Hypo-osmolality and hyponatremia Nicky Miguel, BRASS RECLAIMER 09/17/2018 I10 Essential (primary) hypertension Nicky Miguel, BRASS RECLAIMER 09/17/2018 Z85.6 Personal history of leukemia Nicky Miguel, BRASS RECLAIMER 09/16/2018 M16.12 Unilateral primary osteoarthritis, left Vale Dawkins PA-C hip 09/16/2018 M16.12 Unilateral primary osteoarthritis, left Marley Dooley [facility]- C hip 09/16/2018 I10 Essential (primary) hypertension [place] Dawkins PA-C 09/16/2018 M16.12 Unilateral primary osteoarthritis, left Alka Bartlett M.D. hip 09/08/2018 M25.552 Pain in left hip Alka Bartlett M.D. 09/08/2018 M16.12 Unilateral primary osteoarthritis, left Alka Bartlett M.D. hip 08/26/2018 Z01.810 Encounter for preprocedural Boris Peres, DO [facility] cardiovascular examination 08/26/2018 Z86.718 Personal history of other venous Boris Peres, DO [facility] thrombosis and embolism 08/26/2018 I10 Essential (primary) hypertension Boris Peres, DO [facility] 08/26/2018 M17.12 Unilateral primary osteoarthritis, left Boris Peres, DO [facility] knee 08/08/2018 M25.552 Pain in left hip Alka Bartlett M.D. 08/08/2018 M16.12 Unilateral primary osteoarthritis, left Alka Bartlett M.D. hip Plan of Treatment 01/28/2019 - Alka Bartlett M.D.Z96.642 Presence of left artificial hip jointFollow up:Follow up: 1 yearM16.12 Unilateral primary osteoarthritis, left hipM25.552 Pain in left hip Functional Status Description No Information Available Mental Status Description No Information Available Referrals Description No Information Available
--- OUTSIDE RECORDS SUMMARY | 2019-03-22 07:56 | XMS REPORT | Continuity of Care Document ---
:1930 External Reference #:[id number] Author Name Alka Bartlett M.D. (transmitted by agent of provider Macarena Parker) Address [address] [place] [address] Care Team Providers Name Role Phone Sindhu Amaya MD - Obstetrics & Care Team Information [employer] Gynecology Rocco Rios MD - Family Care Team Information [employer] Medicine Problems Active Problems Provider Date Dyspnea Kaz Shelton M.D. Onset: 10/14/2013 Chest pain Kaz Shelton M.D. Onset: 10/14/2013 Degenerative joint disease of pelvis Charlie Felton M.D. Onset: 12/08/2014 Prosthetic arthroplasty of the hip Charlie Felton M.D. Onset: 12/08/2014 Trochanteric bursitis Charlie Felton M.D. Onset: 06/22/2015 Injury of hip region Cahrlie Felton M.D. Onset: 09/08/2015 Unspecified injury of [...] Use Never Used Drugs Smoking Status Reviewed: 01/28/19 Patient is a former Quit 40 years [...] Shelton M.D. 10/28/2013 Injection Technetium TC 99M Tetrofosmin, Kaz Shelton M.D. 10/28/2013 Per Unit Dose Up To 40 Millicuries Injection Depomedrol 80MG Charlie Felton M.D. 08/12/2013 Injection Immunizations Description No Information Available Vital Signs Date Vital Result Comment 01/28/2019 9:39am Height 62 inches 5'2" Weight 113.00 lb BP Systolic 138 mmHg BP Diastolic 68 mmHg Respiratory Rate 13 /min Body Temperature 98.0 F Pain Level 6 BMI (Body Mass Index) 20.7 kg/m2 10/27/2018 9:42am Height 62 inches 5'2" Weight 113.00 lb Heart Rate 80 /min BP Systolic 140 mmHg BP Diastolic 76 mmHg BMI (Body Mass Index) 20.7 kg/m2 Results Test Date Facility Test Result H/L Range Note Inr/Protime 09/08/2018 [facility] Inr 0.94 Normal 0.77-1.[address] [place] [address] [phone] Laboratory test 09/08/2018 [facility] Partial 27.6 seconds Normal 26.0-36.[address] [place] [address] PTT [phone] Comp Metabolic 09/08/2018 [facility] Sodium 134 mmol/L Low 135 -[address] [place] [address] [phone] Potassium 3.8 mmol/L Normal 3.5-5.0 Chloride 95 [...] 110.2 >60 2 Type & Screen 09/08/2018 [facility] Patient Blood Type A Negative [address] [place] [address] [phone] Antibody Screen NEGATIVE CBC Auto 09/08/2018 [facility] White Blood 18.7 10^3/uL High 3.5-10.[address] [place] [address] [phone] Red Blood Count 4.56 10^6/uL Normal 3.70-4.87 [...] 0.1 10^3/uL Normal 0-0.2 Manual Differential 09/08/2018 [facility] Neutrophil % 28 % [address] [place] [address] [phone] Lymphocytes % 66 % Monocytes % 1 % Variant Lymph % 5 % Normal 0-6 RBC Morphology Normal Normal Abs Neutrophils 5.2 10^3/uL Normal 1.5-7.7 Abs Lymphocytes 13.3 10^3/uL High 1.0-4.8 Abs Monocytes 0.2 10^3/uL Normal 0-0.8 Laboratory test 09/08/2018 [facility] Pathologist Review (SEE NOTE) 4 finding [address] [place] [address] [phone] Urinalysis 09/08/2018 [facility] Urine Color Yellow Profile [address] [place] [address] [phone] Urine Appearance Cloudy Urine Specific [place] 1.014 Normal 1.010-1.030 Urine pH 5.0 Normal [...] Present Abnormal Absent Urine Culture And 09/08/2018 [facility] Urine Culture SEE RESULT [address] [place] [address] [phone] 1 PAIN IN LEFT HIP, UNILATERAL PRIMARY [...] blood. 6 SEE RESULT BELOW Name: GEORGIE LEE : [address]: Alka Bartlett MD Acct: [id number] Unit: [id number] AGE: 88 Location: [facility] Re09/08/18 SEX: F Status: REG REF SPEC: [id number] LORIE: 09/08/[address]: Alka Bartlett MD REQ: [id number] RECD: 09/08/18 STATUS: BETHANY [facility] DR: Rocco Rios MD _ SOURCE: URINE SPDESC: ORDERED: Urine Culture Procedure Result Reported Site Urine Culture Final 09/10/18- 828 ML Organism 1 KLEBSIELLA ORNITHINOLYTICA [place] Count >100,000 (Many) CFU/ML 1. KLEBSIELLA ORNITHINOLYTICA [...] . END OF REPORT DEPARTMENT OF PATHOLOGY, [address] [place] [address] Luís Smith M.D. Director [facility] # [id number] Procedures Date Code Description Status 09/16/2018 65004 THR Total Hip Replacement Completed 09/16/2018 74464 THR Total Hip Replacement Completed 08/26/2018 31332 EKG Tracing & Interpretation Completed 07/31/2018 [id number] Mammogram Completed 11/15/2017 [id number] Mammogram Completed 07/08/2017 [id number] Mammogram Completed 12/05/2015 818222865 Bone Mineral Density Test Completed Medical Devices Description No Information Available Encounters Type Date Location Provider Dx Diagnosis Office Visit 09/17/2018 [facility] Nicky Miguel, Z96.642 Presence of left 9:10a Assoc,pc DRY KILN OPERATOR artificial hip Hospitalists joint E87.1 Hypo-osmolality and hyponatremia I10 Essential (primary) hypertension Z85.6 Personal history of leukemia Office Visit 09/16/2018 [facility] [place] M16.12 Unilateral primary 9:09a Assoc,pc SHARMILA Dawkins osteoarthritis, left Hospitalists hip I10 Essential (primary) hypertension Office Visit 08/26/2018 [facility] Boris Fernandez Z01.810 Encounter for 10:15a Cardiology Of Peres, preprocedural [facility]AC cardiovascular examination Z86.718 Personal history of other venous thrombosis and embolism I10 Essential (primary) hypertension M17.12 Unilateral primary osteoarthritis, left knee Office Visit 08/08/2018 10:45a Orthopedic Services Alka Bartlett, M25.552 Pain in left Of C.M.A. JohnyD. hip M16.12 Unilateral primary osteoarthritis, left hip Office Visit 08/06/2018 9:15a Surgical Brooke Tay N64.59 Other signs and Associates Of Alis Diallo MD symptoms in breast Assessments Date Code Description Provider 01/28/2019 Z96.642 Presence of left artificial hip [...] of left artificial hip joint Nicky Miguel, DRY KILN OPERATOR 09/17/2018 Z96.642 Presence of left artificial hip joint GRZEGORZ Leal 09/17/2018 E87.1 Hypo-osmolality and hyponatremia Nicky Miguel, DRY KILN OPERATOR 09/17/2018 I10 Essential (primary) hypertension Nicky Miguel, DRY KILN OPERATOR 09/17/2018 Z85.6 Personal history of leukemia Nicky Miguel, DRY KILN OPERATOR 09/16/2018 M16.12 Unilateral primary osteoarthritis, left [place] LEONEL DawkinsC hip 09/16/2018 M16.12 Unilateral primary osteoarthritis, left Marley Dooley, RPA- C hip 09/16/2018 I10 Essential (primary) hypertension Valestan Dawkins, PA-C 09/16/2018 M16.12 Unilateral primary osteoarthritis, left Alka Bartlett M.D. hip 09/08/2018 M25.552 Pain in left hip Alka Bartlett M.D. 09/08/2018 M16.12 Unilateral primary osteoarthritis, left Alka Bartlett M.D. hip 08/26/2018 Z01.810 Encounter for preprocedural Boris Peres DO [facility] cardiovascular examination 08/26/2018 Z86.718 Personal history of other venous Boris Peres, DO [facility] thrombosis and embolism 08/26/2018 I10 Essential (primary) hypertension Boris Peres, DO [facility]AC 08/26/2018 M17.12 Unilateral primary osteoarthritis, left Boris Peres, DO [facility] knee 08/08/2018 M25.552 Pain in left hip Alka Bartlett M.D. 08/08/2018 M16.12 Unilateral primary osteoarthritis, left Alka Bartlett M.D. hip 08/06/2018 N64.59 Other signs and symptoms in breast Brooke Diallo MD Plan of Treatment 01/28/2019 - Alka Bartlett M.D.Z96.642 Presence of left artificial hip jointFollow up:Follow up: 1 yearM16.12 Unilateral primary osteoarthritis, left hipM25.552 Pain in left hip Functional Status Description No Information Available Mental Status Description No Information Available Referrals Description No Information Available
[2019-03-22 08:04] VITALS: BP 129/61
--- NOTE | 2019-03-22 08:07 | UC ---
Cardiac HPI - HPI Summary HPI Summary: Coughing spell 3 days ago with clear mucous. Continues with cough but not as harsh, but is having right sided rib pain. She is concerned about fx ribs as she has osteoporosis. Unable to lay down, hurts to sit. - History of Current Complaint Chief Complaint: UCGeneralIllness Stated Complaint: COUGH PAIN IN RIB AREA Time Seen by Provider: 03/22/19 07:53 Hx Obtained From: Patient Pain Intensity: 9 Aggravating Factor(s): Position Alleviating Factor(s): Rest - Allergy/Home Medications Allergies/Adverse Reactions: Allergies Allergy/AdvReac Type Severity Reaction Status Date / Time Latex, Natural Rubber Allergy Intermediate Rash And Verified 03/22/19 08:05 Itching Penicillins Allergy Intermediate Hives Verified 03/22/19 08:05 PMH/Surg Hx/FS Hx/Imm Hx Previously Healthy: Yes Cardiovascular History: Cardiac Disease, Hypertension - Surgical History Surgical History: Yes Surgery Procedure, Year, and Place: TONSILLECTOMY AND ADENOIDECTOMY A YOUNG CHILD. 2007 BILATERAL CATARACT EXTRACTION WITH IOL IMPLANT, [facility] [place]. 2009 RECONSTRUCTION MOHS SURGICAL DEFECT RIGHT NASAL ALA WITH LOCAL FLAP, [facility] [place]. 2014 RIGHT TOTAL HIP REPLACEMENT, [facility] [place]. 07/07/2014 REVISION RIGHT HIP FEMORAL COMPONENT, [facility] [place] - Family History Known Family History: Positive: Cardiac Disease - Social History Alcohol Use: None Alcohol Amount: 1 GLASS OF WINE Substance Use Type: None Smoking Status (MU): Former Smoker Type: Cigarettes Amount Used/How Often: 1/2 ppd Length of Time of Smoking/Using Tobacco: 20 years Have You Smoked in the Last Year: No When Did the Patient Quit Smoking/Using Tobacco: 40 years ago - Immunization History Most Recent Influenza Vaccination: 02/2018 Most Recent Tetanus Shot: 2007 Most Recent Pneumonia Vaccination: 2014 Review of Systems All Other Systems Reviewed And Are Negative: Yes Constitutional: Negative: Fever, Chills, Fatigue Skin: Negative: Bruising Cardiovascular: Positive: Other - CHEST: R RIB PAIN Physical Exam Triage Information Reviewed: Yes Appearance: Well-Appearing Vital Signs: Initial Vital Signs Temp 98.3 F 03/22/19 07:57 Pulse 83 03/22/19 07:57 Resp 18 03/22/19 07:57 BP 129/61 03/22/19 07:57 Pulse Ox 97 03/22/19 07:57 Respiratory: Positive: Lungs clear, Other: - R rib tenderness. Negative: Decreased breath sounds, Crackles, Rhonchi, Stridor, Wheezing Cardiovascular Exam: Normal Neurological: Positive: Alert - Assessment/Plan Course Of Treatment: R rib pain after 3 days of coughing. Cough has since resolved but R rib pain persisted. Pain is reproducible. Xray did not show any rib abnormality aside from osteopenic changes. Suspect post viral inflammatory changes; costochondritis. vitals are good. I have printed out results for her to give to pcp to discuss results as there appears to be chronic changes. nsaids for pain. - Differential Diagnoses - Chest Pain Differential Diagnosis/HQI/PQRI: Chest Wall, Other: - Clinical Impression Provider Diagnosis: Costochondritis Discharge ED - Sign-Out/Discharge Documenting (check all that apply): Patient Departure All imaging exams completed and their final reports reviewed: Yes - Discharge Plan Condition: Good Disposition: HOME Prescriptions: Ibuprofen [Ibu] 600 mg PO TID 15 Days #45 tablet Patient Education Materials: Costochondritis (ED) Referrals: Rocco Rios MD [Primary Care Provider] - Additional Instructions: Please follow up with your primary care provider. - Billing Disposition and Condition Condition: GOOD Disposition: Home
== END 2019-03-22 09:12 | disposition home or self-care (01) ==
LOC: UCEAST 07:50
DX: M94.0 Chondrocostal junction syndrome [Tietze] (principal); I10 Essential (primary) hypertension; Z88.0 Allergy status to penicillin; Z91.040 Latex allergy status; Z87.891 Personal history of nicotine dependence
CPT/HCPCS: 99212; G0463